=== PATIENT | male | born 1940 | race Caucasian/White ===

== ENCOUNTER → 2016-07-05 | Outpatient (CLI) | payer MEDICARE ==
[~2016-07-05] MED LIST: /ADVA50050 INH; /PANT40TA; /TIOT18INH INH; ACET-654 PO; ACET50TAOT PO; ADV250INH INH; ADV500INH INH; ALBU83IN; ALBU83IN IN; ALBU83IN INH; ALBUTEROL SULFATE INH; AMLO10TA PO; AMLO10TA2 PO; AMLO2.5T OR; AMLO5TAB2 PO; ASPI1TAB PO; ASPI81TA83 OR; ATEN100T; ATEN100T PO; BABY81CH; BENA10TA2 PO; BENA20TA PO; BENA20TA2 OR; BENA20TA2 PO; DALI1TAB2 PO; DELT1TAB PO; DOXY100T OR; FLUO10CA9 PO; FLUO20CA8 PO; FLUO20CA9 PO; HYDR10T PO; HYDR10TAB PO; HYDR25TA6; HYDR25TA6 OR; IPRA2IN INH; LASI40TA PO; LEVA750T; LEVA750T PO; LORA10TA2 PO; LOTREL; MAALSUS; MAALSUS20 PO; MILKSUS PO; MIRA3350 PO; MUCINEX; O2; OMEP20CA3 PO; PANT40TA2 PO; PRED10TA FT; PRED10TA PO; PREDNISONE TAPER; PRIL20CA OR; PROA1AER IN; PROA1AER INH; PROZ20CA11 PO; SIMV20TA2 OR; SIMV20TA2 PO; SMZ-800T PO; SPIR1CAP INH; TRAZ50TA4 PO; TRAZO50TA PO; VITAMIN D50000 UNT OR; ZITH500T PO; [UNRECOGNIZED DRUG - REMARK]
[2016-07-05 13:04] LABS: MEAN CORPUSCULAR HEMOGLOBIN 28.2 pg (27.0-33.0); MEAN CORPUSCULAR HGB CONC 32.3 g/dl (32.0-36.5); MEAN CORPUSCULAR VOLUME 87.5 fl (80.0-96.0); RED CELL DISTRIBUTION WIDTH 12.7 % (11.5-14.5); WHITE BLOOD COUNT 8.7 K/mm3 (4.0-10.0)
[2016-07-05 13:15] LABS: ALBUMIN 3.8 GM/DL (3.2-5.2); ALBUMIN/GLOBULIN RATIO 1.12 (1.00-1.93); ALKALINE PHOSPHATASE 79 U/L (45-117); ALT/SGPT 22 U/L (12-78); ANION GAP 7 MEQ/L (8-16); AST/SGOT 17 U/L (15-37); BILIRUBIN,TOTAL 0.2 MG/DL (0.2-1.0); BLOOD UREA NITROGEN 15 MG/DL (7-18); CALCIUM LEVEL 8.7 MG/DL (8.8-10.2); CARBON DIOXIDE LEVEL 30 MEQ/L (21-32); CHLORIDE LEVEL 103 MEQ/L (98-107); CHOLESTEROL LEVEL 135 MG/DL (<200); CREATININE FOR GFR 1.19 MG/DL (0.70-1.30); GLOMERULAR FILTRATION RATE > 60.0 (>42); GLUCOSE, FASTING 92 MG/DL (83-110); POTASSIUM SERUM 5.1 MEQ/L (3.5-5.1); SODIUM LEVEL 140 MEQ/L (136-145); TOTAL PROTEIN 7.2 GM/DL (6.4-8.2); TRIGLYCERIDES LEVEL 125 MG/DL (<150)
[2016-07-05 13:28] LABS: EOSINOPHILS 3 % (0-5)
== END ==
LOC: M WUC 09:37
PROVIDERS: ATTEND Family Medicine
DX: J44.1 Chronic obstructive pulmonary disease with (acute) exacerbation (principal); R73.01 Impaired fasting glucose; K80.20 Calculus of gallbladder without cholecystitis without obstruction; E78.2 Mixed hyperlipidemia; F43.23 Adjustment disorder with mixed anxiety and depressed mood

== ENCOUNTER → 2016-08-31 | Outpatient (CLI) | payer MEDICARE | LOC: M WUC 13:20 | PROVIDERS: ATTEND Urology | DX: Z12.5 Encounter for screening for malignant neoplasm of prostate (principal) ==

== ENCOUNTER → 2017-06-29 | Outpatient (REF) | payer MEDICARE ==
[2017-06-29 16:47] LABS: ALBUMIN 3.9 GM/DL (3.2-5.2); ALBUMIN/GLOBULIN RATIO 1.11 (1.00-1.93); ALKALINE PHOSPHATASE 116 U/L (45-117); ALT/SGPT 26 U/L (12-78); ANION GAP 8 MEQ/L (8-16); AST/SGOT 17 U/L (7-37); BILIRUBIN,TOTAL 0.3 MG/DL (0.2-1.0); BLOOD UREA NITROGEN 15 MG/DL (7-18); CARBON DIOXIDE LEVEL 31 MEQ/L (21-32); CHLORIDE LEVEL 102 MEQ/L (98-107); CHOLESTEROL LEVEL 172 MG/DL (<200); GLOMERULAR FILTRATION RATE > 60.0 (>42); GLUCOSE, FASTING 97 MG/DL (70-100); HDL CHOLESTEROL 43 MG/DL (>40); NON-HDL-C 129 MG/DL; POTASSIUM SERUM 4.4 MEQ/L (3.5-5.1); SODIUM LEVEL 141 MEQ/L (136-145); TOTAL PROTEIN 7.4 GM/DL (6.4-8.2); TRIGLYCERIDES LEVEL 135 MG/DL (<150)
[2017-06-29 18:39] LABS: BASO # 0.1 10^3/uL (0.0-0.2); BASO % 0.7 % (0.0-1.0); EOS # 0.3 10^3/uL (0.0-0.50); EOS % 3.4 % (0.0-3.0); HEMOGLOBIN 14.1 g/dl (14.0-18.0); IMMATURE GRANULOCYTE % 0.6 % (0-3.0); LYMPH # 1.7 10^3/uL (1.5-4.5); LYMPH % 19.2 % (24.0-44.0); MEAN CORPUSCULAR HEMOGLOBIN 27.2 pg (27.0-33.0); MEAN CORPUSCULAR HGB CONC 31.3 g/dl (32.0-36.5); MEAN CORPUSCULAR VOLUME 86.9 fl (80.0-96.0); MONO # 0.9 10^3/uL (0.0-0.8); MONO % 10.4 % (0.0-5.0); NEUTROPHILS # 5.9 10^3/uL (1.8-7.7); NEUTROPHILS % 65.7 % (36.0-66.0); PLATELET COUNT, AUTOMATED 375 10^3/uL (150-450); RED BLOOD COUNT 5.18 10^6/uL (4.30-6.10); RED CELL DISTRIBUTION WIDTH 13.9 % (11.5-14.5)
== END ==
LOC: M LABDRWCV 16:15
DX: I10 Essential (primary) hypertension (principal)
CPT/HCPCS: 80053

== ENCOUNTER → 2017-12-27 | Outpatient (CLI) | payer MEDICARE ==
[2017-12-27 18:26] LABS: BASO # 0.1 10^3/uL (0.0-0.2); BASO % 0.6 % (0.0-1.0); EOS # 0.3 10^3/uL (0.0-0.50); EOS % 3.4 % (0.0-3.0); HEMOGLOBIN 13.7 g/dl (13.5-17.5); IMMATURE GRANULOCYTE % 0.6 % (0-3.0); LYMPH # 1.6 10^3/uL (1.5-4.5); LYMPH % 16.5 % (24.0-44.0); MEAN CORPUSCULAR HEMOGLOBIN 27.4 pg (27.0-33.0); MEAN CORPUSCULAR HGB CONC 31.9 g/dl (32.0-36.5); MONO % 9.9 % (0.0-5.0); NEUTROPHILS # 6.7 10^3/uL (1.8-7.7); PLATELET COUNT, AUTOMATED 402 10^3/uL (150-450); RED CELL DISTRIBUTION WIDTH 13.8 % (11.5-14.5); WHITE BLOOD COUNT 9.6 10^3/uL (4.0-10.0)
[2017-12-27 19:21] LABS: ALBUMIN 3.8 GM/DL (3.2-5.2); ALKALINE PHOSPHATASE 99 U/L (45-117); ALT/SGPT 30 U/L (12-78); ANION GAP 7 MEQ/L (8-16); AST/SGOT 21 U/L (7-37); BILIRUBIN,TOTAL 0.3 MG/DL (0.2-1.0); BLOOD UREA NITROGEN 14 MG/DL (7-18); CARBON DIOXIDE LEVEL 31 MEQ/L (21-32); CHLORIDE LEVEL 102 MEQ/L (98-107); GLOMERULAR FILTRATION RATE > 60.0 (>42); GLUCOSE, FASTING 73 MG/DL (70-100); MAGNESIUM LEVEL 2.2 MG/DL (1.8-2.4); POTASSIUM SERUM 4.5 MEQ/L (3.5-5.1); SODIUM LEVEL 140 MEQ/L (136-145); TOTAL PROTEIN 7.6 GM/DL (6.4-8.2)
== END ==
LOC: M WUC 15:24
DX: I10 Essential (primary) hypertension (principal)
CPT/HCPCS: 83735

== ENCOUNTER → 2018-04-12 | Outpatient (CLI) | payer MEDICARE ==
[2018-04-12 16:49] LABS: ANION GAP 5 MEQ/L (8-16); BLOOD UREA NITROGEN 15 MG/DL (7-18); CARBON DIOXIDE LEVEL 30 MEQ/L (21-32); CHLORIDE LEVEL 104 MEQ/L (98-107); CREATININE FOR GFR 1.09 MG/DL (0.70-1.30); GLOMERULAR FILTRATION RATE > 60.0 (>42); GLUCOSE, FASTING 90 MG/DL (70-100); POTASSIUM SERUM 4.7 MEQ/L (3.5-5.1); SODIUM LEVEL 139 MEQ/L (136-145)
== END ==
LOC: M WUC 13:21
DX: I10 Essential (primary) hypertension (principal)
CPT/HCPCS: 80048

== ENCOUNTER → 2018-10-06 | Outpatient (CLI) | payer MEDICARE ==
[~2018-10-06] MED LIST changes: -/ADVA50050 INH; -/PANT40TA; -/TIOT18INH INH; -ACET-654 PO; +ACET1TAB55 PO; +ACET500T15 PO; -ACET50TAOT PO; +ADVA1AER2 INH; -AMLO10TA2 PO; +AMLO10TA5 PO; -AMLO5TAB2 PO; +AMLO5TAB6 PO; -ASPI1TAB PO; +ASPI81TA26 PO; -BENA10TA2 PO; +BENA10TA6 PO; -BENA20TA2 PO; +BENA20TA8 PO; +FLUO20CA19 PO; -FLUO20CA9 PO; +HYDR-643 PO; -HYDR10T PO; -LASI40TA PO; +LASI40TA9 PO; -LEVA750T PO; +LEVA750T7 PO; +LORA-243 PO; -LORA10TA2 PO; +MILK120011 PO; -MILKSUS PO; -PANT40TA2 PO; +PANT40TA3 PO; -PRED10TA FT; -PRED10TA PO; +PRED10TA2 FT; +PRED10TA2 PO; -PROA1AER IN; -PROA1AER INH; +PROAAER10 IN; +PROAAER10 INH; +PROT1TAB2; -SMZ-800T PO; +SULF1TAB93 PO; +TRAZ-252 PO; +TRAZ1TAB10 PO; -TRAZ50TA4 PO; -TRAZO50TA PO
[2018-10-06 12:51] LABS: BASO % 0.4 % (0.0-1.0); EOS # 0.1 10^3/uL (0.0-0.50); EOS % 1.1 % (0.0-3.0); HEMATOCRIT 43.7 % (42.0-52.0); LYMPH % 13.2 % (24.0-44.0); MEAN CORPUSCULAR HEMOGLOBIN 28.4 pg (27.0-33.0); MEAN CORPUSCULAR VOLUME 88.6 fl (80.0-96.0); MONO # 0.6 10^3/uL (0.0-0.8); MONO % 8.6 % (0.0-5.0); NEUTROPHILS # 5.7 10^3/uL (1.8-7.7); NEUTROPHILS % 76.2 % (36.0-66.0); PLATELET COUNT, AUTOMATED 315 10^3/uL (150-450); RED BLOOD COUNT 4.93 10^6/uL (4.30-6.10); WHITE BLOOD COUNT 7.5 10^3/uL (4.0-10.0)
[2018-10-06 13:06] LABS: ALBUMIN 3.6 GM/DL (3.2-5.2); ALT/SGPT 27 U/L (12-78); BILIRUBIN,TOTAL 0.4 MG/DL (0.2-1.0); BLOOD UREA NITROGEN 13 MG/DL (7-18); CALCIUM LEVEL 8.8 MG/DL (8.8-10.2); CARBON DIOXIDE LEVEL 30 MEQ/L (21-32); CHLORIDE LEVEL 103 MEQ/L (98-107); CHOLESTEROL LEVEL 157 MG/DL (<200); CHOLESTEROL RISK RATIO 3.568 (<5); GLOMERULAR FILTRATION RATE > 60.0 (>42); GLUCOSE, FASTING 105 MG/DL (70-100); HDL CHOLESTEROL 44 MG/DL (>40); LDL CHOLESTEROL 98 MG/DL (<100); NON-HDL-C 113 MG/DL; SODIUM LEVEL 138 MEQ/L (136-145); TOTAL PROTEIN 7.3 GM/DL (6.4-8.2); TRIGLYCERIDES LEVEL 75 MG/DL (<150)
== END ==
LOC: M WUC 09:57
PROVIDERS: ATTEND Family Medicine
DX: I11.9 Hypertensive heart disease without heart failure (principal); R73.01 Impaired fasting glucose

== ENCOUNTER → 2018-10-18 | Outpatient (CLI) | payer MEDICARE | LOC: M WUC 14:08 | PROVIDERS: ATTEND Family Medicine | DX: R97.20 Elevated prostate specific antigen [PSA] (principal); Z12.5 Encounter for screening for malignant neoplasm of prostate | CPT/HCPCS: 36415; G0103 ==

== ENCOUNTER → 2018-10-25 | Outpatient (CLI) | payer MEDICARE ==
--- NOTE | 2018-10-25 17:45 | REP ---
REASON: Tobacco abuse. COMPARISON: 02/22/2016 and 09/17/2006. As per the low dose screening protocol only lung window images were sent to the read station for interpretation. There is a large asymmetric mass like density with spiculation in the posterior segment of the right upper lobe measuring approximately 5.6 x 3.4 cm. This abuts the right hilum. There is right paratracheal adenopathy. There is cylindrical bronchiectasis and lung field hyperexpansion. There are no gross pleural or pericardial effusions. IMPRESSION: Right upper lobe lung mass as described above. Consistent with neoplasm until proven otherwise. LUNG RADS Category 4X. PET CT and tissue sampling is recommended as per the revised Fleischner's Society Criteria. Electronically Signed by Luis Angel Cardoso DO 10/26/2018 12:26 P
== END ==
LOC: M RAD 13:57
PROVIDERS: ATTEND Family Medicine
DX: R91.8 Other nonspecific abnormal finding of lung field (principal); Z87.891 Personal history of nicotine dependence; R59.0 Localized enlarged lymph nodes; J47.9 Bronchiectasis, uncomplicated

== ENCOUNTER → 2018-10-31 | Outpatient (CLI) | payer MEDICARE | LOC: M SMT 13:10 | PROVIDERS: ATTEND Nurse Practitioner Women's Health | DX: R97.20 Elevated prostate specific antigen [PSA] (principal) ==

== ENCOUNTER → 2018-12-01 | Outpatient (CLI) | payer MEDICARE ==
[~2018-12-01] MED LIST changes: -BENA10TA6 PO; +BENA10TA9 PO; -OMEP20CA3 PO; +OMEP20CA4 PO
--- NOTE | 2018-12-01 12:54 | REP ---
CT of the chest without IV contrast: Comparisons are 10/25/2018, and 2015 and 09/17/2006. There is a right hilar mass posteriorly in the hilus extending into the right upper lobe anteriorly and superior segment right lower lobe. This is similar appearance to 10/25/2018. There are no infiltrates. There are no pleural effusions. There is a stable 6 mm nodule posteriorly in the right upper lobe on image 22, unchanged from 02/22/2016, likely a granuloma. There is a calcified granuloma in the lingula. This is unchanged. There are calcified granulomas in the left hilus and mediastinum. These are unchanged. There is no mediastinal or axillary adenopathy. The study is insensitive for hilar adenopathy in the absence of IV contrast. Thoracic aorta is unremarkable except for calcified atheroma. Cardiac size is normal. There is coronary artery calcified atheroma. There is a large volume fat in the posterior mediastinum surrounding the descending thoracic aorta. This is unchanged. Upper abdomen: There is no adrenal mass. There are gallbladder calculi. This is unchanged. There are granulomas in the spleen. This is unchanged. Impression: Right hilar mass as described. No mediastinal adenopathy. Calcified granulomas in the left lung, left hilus, mediastinum, and spleen unchanged. No adrenal mass. Electronically Signed by Vipin Stevens MD 12/01/2018 12:45 P
== END ==
LOC: M RAD 11:06
PROVIDERS: ATTEND Internal Medicine Pulmonary Disease
DX: R91.8 Other nonspecific abnormal finding of lung field (principal); K80.20 Calculus of gallbladder without cholecystitis without obstruction; R06.00 Dyspnea, unspecified

== ENCOUNTER → 2018-12-01 | Outpatient (CLI) | payer MEDICARE ==
[~2018-12-01] MED LIST changes: +PROHANCE 279.3MG/ML 5ML VIAL (A9576) As Ordered ONE
--- NOTE | 2018-12-01 15:10 | REP ---
MULTIPARAMETRIC PROSTATE MRI WITH AND WITHOUT IV GADOLINIUM: HISTORY: Elevated PSA. TECHNIQUE: Using a phased array surface coil, small field of view imaging was acquired using T2-weighted scans in the axial, coronal, and sagittal imaging planes. Small field of view diffusion-weighted sequences are acquired. Small field of view axial T1-weighted scans are acquired dynamically after the intravenous administration of 10 mL of ProHance. Using a large field of view, the entire pelvis to the level of the aortic bifurcation was imaged using pre-contrast axial T1 and post-contrast axial T1 fat-saturation images. Osseous structures of the pelvis demonstrate no bone lesion. There is no adenopathy. There is a small right inguinal hernia containing fat. Incidental note is made of sigmoid diverticulosis. Seminal vesicles appear symmetrical. Prostate measures 7.1 x 5.9 x 6.2 cm for a total volume of 139.87 mL. This is slightly larger than the prior study of 07/23/2014 when the total volume was 120.44 mL. Diffuse heterogeneous mixed low and high signal is seen in the prostate with nodular areas in the central gland. There appears to be a more prominent hypointense nodularity on T2-weighted images in the left lobe of the prostate. Three areas of interest are identified for MR ultrasound fusion biopsy. First in the right basilar transitional zone and medial peripheral zone and extending into the right mid and apical transitional zone, there is a geographic area of somewhat ill-defined low signal predominately on T2-weighted images with areas of type 3 enhancement. The area measures 3.9 x 1.5 x 5.6 cm for a total volume of 16.1 mL. The overall level of suspicion is 3/5 with clinically significant cancer equivocal. The second in the left mid transitional zone, there is an area of predominantly T2 signal hypointensity which is somewhat ill-defined. There are areas of internal type 3 enhancement. The area measures 3.2 x 0.9 x 2.4 cm for a total volume of 4.14 mL. Overall level of suspicious 3/5 with clinically significant cancer equivocal. Finally, in the left basilar anterior transitional zone, and left mid and apical transitional zone, there is an area of predominant T2 hypointensity with some borders appearing rounded. There is predominant type 3 enhancement particularly inferiorly in the apex. The area measures 3.1 x 1.6 x 4.2 cm for a total volume of 10.82 mL. Overall level of suspicion is 3/5 with clinically significant cancer equivocal. IMPRESSION: Areas are identified on the prostate gland demonstrating abnormal signal and enhancement, presented for consideration for ultrasound-guided MR fusion biopsy. Electronically Signed by Vipin Matson MD 12/05/2018 05:36 P
== END ==
LOC: M RAD 11:11
PROVIDERS: ATTEND Nurse Practitioner Women's Health
DX: R97.20 Elevated prostate specific antigen [PSA] (principal); K40.90 Unilateral inguinal hernia, without obstruction or gangrene, not specified as recurrent; K57.30 Diverticulosis of large intestine without perforation or abscess without bleeding; R91.8 Other nonspecific abnormal finding of lung field; K80.20 Calculus of gallbladder without cholecystitis without obstruction; R06.00 Dyspnea, unspecified
CPT/HCPCS: 71250; 72197; A9576

== ENCOUNTER → 2019-03-14 | Outpatient (CLI) | payer MEDICARE ==
[~2019-03-14] MED LIST changes: -PROHANCE 279.3MG/ML 5ML VIAL (A9576) As Ordered ONE
[2019-03-14 17:31] LABS: CALCIUM LEVEL 9.3 MG/DL (8.8-10.2); CREATININE FOR GFR 1.24 MG/DL (0.70-1.30); GLOMERULAR FILTRATION RATE 59.9 (>42); POTASSIUM SERUM 4.6 MEQ/L (3.5-5.1)
== END ==
LOC: M WUC 11:12
PROVIDERS: ATTEND Family Medicine
DX: R60.0 Localized edema (principal)

== ENCOUNTER → 2019-03-15 | Outpatient (REF) | payer MEDICARE ==
[2019-03-15 17:22] LABS: APPEARANCE, URINE CLEAR (CLEAR); BACTERIA, URINE AUTO NEGATIVE (NEGATIVE); BILIRUBIN, URINE AUTO NEGATIVE (NEGATIVE); BLOOD, URINE BLOOD NEGATIVE (NEGATIVE); COLOR, URINE YELLOW (YELLOW); GLUCOSE, URINE (UA) AUTO NEGATIVE (NEGATIVE); KETONE, URINE AUTO NEGATIVE (NEGATIVE); LEUKOCYTE ESTERASE, URINE AUTO NEGATIVE (NEGATIVE); MUCUS, URINE SMALL (NEGATIVE); NITRITE, URINE AUTO NEGATIVE (NEGATIVE); PROTEIN, URINE AUTO 1+ mg/dL (NEGATIVE); RBC, URINE AUTO 1 /HPF (0-3); SQUAMOUS EPITHELIAL CELL UR AU 0 /HPF (0-6); UROBILINOGEN, URINE AUTO 0.2 mg/dL (0.0-2.0); WBC, URINE AUTO 0 /HPF (0-3)
== END ==
LOC: M SMT 16:45
PROVIDERS: ATTEND Nurse Practitioner Women's Health
DX: N40.0 Benign prostatic hyperplasia without lower urinary tract symptoms (principal)
CPT/HCPCS: 51798; 81001; 87086; G0463

== ENCOUNTER → 2019-03-26 | Outpatient (CLI) | payer MEDICARE ==
[2019-03-26 13:40] LABS: CALCIUM LEVEL 8.7 MG/DL (8.8-10.2); CREATININE FOR GFR 1.4 MG/DL (0.70-1.30)
== END ==
LOC: M WUC 11:08
PROVIDERS: ATTEND Family Medicine
DX: L03.116 Cellulitis of left lower limb (principal)

== ENCOUNTER 2019-07-22 15:56 | Inpatient (IN) | payer MEDICARE ==
[~2019-07-22] VITALS: Ht 167.6 cm; Wt 100.1 kg
[~2019-07-22 15:56] MED LIST changes: -BENA10TA9 PO; +BENA1TAB24 PO; -FLUO20CA19 PO; +FLUO20CA20 PO; +FLUO20CA22 PO; -FLUO20CA8 PO; +OMEP1CAP73 PO; -OMEP20CA4 PO; -SIMV20TA2 PO; +SIMV20TA22 PO
[2019-07-22] MEDS ORDERED: oxygen (16:09)
[2019-07-22] MEDS ORDERED: PRED5TA PO (16:22)
[2019-07-22] MEDS ORDERED: FINA5TAB2 PO (16:22)
[2019-07-22 16:58] LABS: BASO # 0.1 10^3/uL (0.0-0.2); BASO % 0.3 % (0.0-1.0); EOS # 0.1 10^3/uL (0.0-0.5); EOS % 0.4 % (0.0-3.0); HEMATOCRIT 40.7 % (42.0-52.0); HEMOGLOBIN 13.1 g/dl (13.5-17.5); LYMPH # 0.6 10^3/uL (1.5-5.0); LYMPH % 3.8 % (24.0-44.0); MEAN CORPUSCULAR HEMOGLOBIN 27.5 pg (27.0-33.0); MEAN CORPUSCULAR HGB CONC 32.2 g/dl (32.0-36.5); MEAN CORPUSCULAR VOLUME 85.5 fl (80.0-96.0); MONO # 0.7 10^3/uL (0.0-0.8); MONO % 4.2 % (0.0-5.0); NEUTROPHILS % 90.7 % (36.0-66.0); PLATELET COUNT, AUTOMATED 361 10^3/uL (150-450); RED BLOOD COUNT 4.76 10^6/uL (4.30-6.10); WHITE BLOOD COUNT 15.4 10^3/uL (4.0-10.0)
[2019-07-22] MEDS ORDERED: methylPREDNISolone INJ 40 MG/1 ML VIAL (J2920) IV ONE (17:00)
[2019-07-22] MEDS ORDERED: ALBUTEROL 90 MCG/ACT 8GM HFA INHALER INH ONE (17:00)
[2019-07-22] MEDS ORDERED: methylPREDNISolone INJ 125 MG/2 ML VIAL (J2930) IV ONE (17:00)
[2019-07-22] MEDS ORDERED: COMBIVENT RESPIMAT 100-20MCG INHALER 4GM INH SCH (17:00)
[2019-07-22 17:28] LABS: ALBUMIN 3.5 GM/DL (3.2-5.2); ALT/SGPT 23 U/L (12-78); BILIRUBIN,DIRECT 0.1 MG/DL (0.0-0.2); BILIRUBIN,TOTAL 0.4 MG/DL (0.2-1.0); BLOOD UREA NITROGEN 13 MG/DL (7-18); CALCIUM LEVEL 9.4 MG/DL (8.8-10.2); CARBON DIOXIDE LEVEL 29 MEQ/L (21-32); CHLORIDE LEVEL 100 MEQ/L (98-107); CK-MB VALUE MASS 2.6 NG/ML (<3.6); CPK CREATINE PHOSPHOKINASE 119 U/L (39-308); CREATININE FOR GFR 0.99 MG/DL (0.70-1.30); GLOMERULAR FILTRATION RATE > 60.0 (>42); GLUCOSE, FASTING 98 MG/DL (70-100); MB/CK RELATIVE INDEX 2.18 (< OR =4); NT-PRO BNP 353 PG/ML (<450); POTASSIUM SERUM 4.4 MEQ/L (3.5-5.1); SODIUM LEVEL 135 MEQ/L (136-145); TOTAL PROTEIN 7.2 GM/DL (6.4-8.2); TROPONIN I 0.11 NG/ML (< 0.10)
[2019-07-22] MEDS ORDERED: FURO20TA2 PO (17:46)
[2019-07-22] MEDS ORDERED: ISOVUE-370 76% 100ML VIAL (Q9967) As Ordered ONE (18:28)
[2019-07-22] MEDS ORDERED: traZODone 50 MG TAB PO PRN (19:00)
[2019-07-22] MEDS ORDERED: LEVALBUTEROL 1.25 MG/0.5 ML CONCENTRATE NEB INH PRN (19:00)
--- NOTE | 2019-07-22 19:11 | HPEPDOC ---
General Date of Admission Jul 22, 2019 at 18:45 Date of Service: Jul 22, 2019 Chief Complaint The patient is a 78-year-old male admitted with a reason for visit of Copd Exacerbation. Source: Patient, RN/, Old records History of Present Illness 78 year old male with PMH of COPD, CELIA on CPAP, home O2 dependent, Right hilar mass possible malignant did not want investigated presented to [facility] ED with 2 days history of increasing SOB and wheezing. 2 days ago it was really bad he used his inhalers and nebs regularly and yesterday he felt it was getting better but today again his breathing is bad so came to the ED. He also complained of chest tightness, occasional cough and wheezing. In the ED he was found to have mildly elevated troponins. ED physicians discussed about transfer to [facility] but he refused to go. He wanted to be treated here medically if he is having a heart attack. He was admitted for COPD exacerbation. Home Medications Scheduled Albuterol Sulf (Albuterol Sulfate) 2.5 Mg/3 Ml Nebu, 2.5 MG INH QID for SHORTNESS OF BREATH, (Reported) Aspirin (Aspirin EC) 81 Mg Tab, 81 MG PO DAILY, (Reported) Benazepril Hcl (Benazepril HCl) 20 Mg Tab, 20 MG PO BID for hypertension, (Reported) Finasteride (Finasteride) 5 Mg Tablet, 5 MG PO DAILY, (Reported) Fluoxetine Hcl (Fluoxetine HCl) 20 Mg Cap, 20 MG PO QHS, (Reported) Furosemide (Furosemide) 20 Mg Tablet, 40 MG PO DAILY, (Reported) Pantoprazole Sodium (Pantoprazole Sodium) 40 Mg Tab, 40 MG PO DAILY, (Reported) Prednisone (Prednisone) 5 Mg Tablet, 1 TAB PO DAILY, (Reported) Salmeterol/Fluticasone (Advair 500-50 Diskus) 28 Puff/Inhaler Aerp, 1 PUFF INH BID, (Reported) Simvastatin (Simvastatin) 20 Mg Tab, 20 MG PO QHS, (Reported) Tiotropium Lott (Spiriva) 18 Mcg Cap, 18 MCG INH DAILY, (Reported) Scheduled PRN Albuterol Sulfate (Proair Hfa) 108 Mcg/Act Aer, 1 PUFF IN Q4H PRN for SHORTNESS OF BREATH, (Reported) Hydroxyzine HCl (Hydroxyzine HCl) 10 Mg Tab, 10 MG PO TID PRN for ANXIETY, (Reported) Polyethylene Glycol 3350 (Miralax) 1 Pow Pow, 17 GM PO DAILY PRN for CONSTIPATION, (Reported) Trazodone HCl (Trazodone HCl) 50 Mg Tab, 50 MG PO QHS PRN for SLEEP, (Reported) Allergies Coded Allergies: Sulfa (Sulfonamide Antibiotics) (Verified Adverse Reaction, Unknown, rash, 07/22/19) Past Medical History Medical History HYPERTENSION HYPERLIPIDEMIA COPD With Chronic respiratory failure with hypoxia CELIA on CPAP BPH ELEVATED PSA RIGHT HILAR MASS POSSIBLE LUNG CANER DR DILLON STATES NO GOOD CANDIDATE FOR BIOPSY SO NOT SURE DEFINITELY OBESITY GERD. Osteoarthritis. Anxiety. Depression with Prior suicide attempt. Seasonal allergies. Constipation. Surgical History TRUS BIOPSY 09/01/2012, Left eye surgery for Pterygium MRI FUSION BIOPSY 08/16/14 Family History FATHER: , PROSTATE PROBLEMS, STROKE MOTHER: SIBLINGS: LIVING BROTHER HAD PROSTATE CANCER. Social History * Smoker: former Smoker Alcohol: occationally Drugs: denies A-FIB/CHADSVASC A-FIB History Current/History of A-Fib/PAF?: No Review of Systems Constitutional: Reports: Weakness, Fatigue; Denies: Chills, Fever, Night Sweats Eyes: Denies: Pain, Vision change ENT: Denies: Head Aches, Ear Pain, Dysphagia Skin: Denies: Rash, Lesions, Breakdown Pulmonary: Reports: Dyspnea Cardiovascular: Reports: Edema; Denies: Chest Pain, Palpitations, Orthopnea, Paroxysmal Noc. Dyspnea Gastrointestinal: Denies: Nausea, Vomiting, Abdominal Pain, Diarrhea Genitourinary: Denies: Dysuria, Frequency, Incontinence, Retention Musculoskeletal: Reports: Back Pain; Denies: Neck Pain, Joint Pain, Muscle Pain, Spasms Neurological: Denies: Weakness, Numbness, Change in speech, Confusion Physical Examination General Exam: Positive: Alert, Cooperative, No Acute Distress Eye Exam: Positive: PERRLA, Conjunctiva & lids normal, EOMI; Negative: Sclera icteric ENT Exam: Positive: Atraumatic, Mucous membr. moist/pink, Pharynx Normal Neck Exam: Positive: Supple; Negative: JVD, thyromegaly Chest Exam: Positive: Rhonchi, Wheezing, Diminished Heart Exam: Positive: Tachycardic, Regular Rhythm, Normal S1, Normal S2; Negative: Gallops, Murmurs, Rubs Telemetry: Positive: Sinus, Tachycardia Abdomen Exam: Positive: Normal bowel sounds, Soft; Negative: Tenderness, Hepatospenomegaly Extremity Exam: Positive: Edema (trace); Negative: Clubbing, Cyanosis Skin Exam: Positive: Nl turgor and temperature; Negative: Breakdown, Lesion Neuro Exam: Positive: Normal Speech, Strength at 5/5 X4 ext, Normal Tone, Sensation Intact Vital Signs Vital Signs Date Time Temp Pulse Resp B/P (MAP) Pulse Ox O2 Delivery O2 Flow Rate FiO2 07/22/19 18:00 113 22 132/93 (106) 96 07/22/19 16:27 Nasal Cannula 2.0 07/22/19 15:56 99.6 Laboratory Data Labs 24H Laboratory Tests 2 07/22/19 16:40: Immature Granulocyte % (Auto) 0.6, Neutrophils (%) (Auto) 90.7H, Lymphocytes (%) (Auto) 3.8L, Monocytes (%) (Auto) 4.2, Eosinophils (%) (Auto) 0.4, Basophils (%) (Auto) 0.3, Neutrophils # (Auto) 14.0H, Lymphocytes # (Auto) 0.6L, Monocytes # (Auto) 0.7, Eosinophils # (Auto) 0.1, Basophils # (Auto) 0.1, Nucleated Red Blood Cells % (auto) 0.0, Anion Gap 6L, Glomerular Filtration Rate > 60.0, Calcium Level 9.4, Total Bilirubin 0.4, Direct Bilirubin 0.1, Aspartate Amino Transf (AST/SGOT) 16, Alanine Aminotransferase (ALT/SGPT) 23, Alkaline Phosphatase 70, Total Creatine Kinase 119, Creatine Kinase MB 2.6, Creatine Kinase MB Relative Index 2.18, Troponin I 0.11H, RA-Sbk-U-Type Natriuretic Peptide 353, Total Protein 7.2, Albumin 3.5, Albumin/Globulin Ratio 0.95L CBC/BMP Laboratory Tests 07/22/19 16:40 Microbiology Microbiology 07/22/19 Respiratory Virus Panel (PCR) (JULIAN) - Final, Complete 07/22/19 Blood Culture, Received Pending 07/22/19 Blood Culture, Received Pending Assessment/Plan 78 year old male with PMH of COPD, CELIA on CPAP, home O2 dependent, Right hilar mass possible malignant did not want investigated presented to [facility] ED with 2 days history of increasing SOB and wheezing. 2 days ago it was really bad he use d his inhalers and nebs regularly and yesterday he felt it was getting better but today again his breathing is bad so came to the ED. He also complained of chest tightness, occasional cough and wheezing. In the ED he was found to have mildly elevated troponins. ED physicians discussed about transfer to [facility] but he refused to go. He wanted to be treated here medically if he is having a heart attack. He was admitted for COPD exacerbation. COPD exacerbation will give methyl pred, azithromycin, continue advair and spiriva, xopenex oxygen supplementation Possible pulmonary hypertension with right heart faiure and diastolic heart failure continue lasix. Elevated troponins will repeat in 8 hours EKG sinus tachy echo ordered. continue ASA, statin CELIA continue CPAP Hypertension continue home meds Depression and anxiety continue home meds BPH finasteride Hyperlipidemia statin GERD PPI Plan / VTE VTE Prophylaxis Ordered?: Yes WILVER PATEL MD Jul 22, 2019 19:10
[2019-07-22] MEDS ORDERED: BISACODYL 5 MG TAB PO PRN (19:30)
--- NOTE | 2019-07-22 19:50 | REPVR ---
PROCEDURE INFORMATION: Exam: CT Angiography Chest With Contrast Exam date and time: 07/22/2019 6:44 PM Age: 78 years old Clinical indication: Shortness of breath TECHNIQUE: Imaging protocol: Computed tomographic angiography of the chest with intravenous contrast. 3D rendering: MIP reconstructed images were created by the technologist. Radiation optimization: All CT scans at this facility use at least one of these dose optimization techniques: automated exposure control; mA and/or kV adjustment per patient size (includes targeted exams where dose is matched to clinical indication); or iterative reconstruction. Contrast material: ISOVUE 370; Contrast volume: 75 ml; Contrast route: IV; COMPARISON: CT ANGIO CHEST 02/22/2016 3:[address] Chest without contrast 12/01/2018 11:26:32 AM (The report from this study was not available for review at the time of this interpretation.) FINDINGS: Pulmonary arteries: No pulmonary embolism is identified. Great vessels off aortic arch: The brachiocephalic artery, imaged proximal portion of the left common carotid artery, and left subclavian artery are intact. No significant stenosis or occlusion of these vessels is noted. Aorta: There is no thoracic aortic aneurysm, pseudoaneurysm, penetrating atherosclerotic ulcer, intramural hematoma, or dissection. There are moderate atherosclerotic calcifications. Thyroid: There is a 5 mm low-attenuation nodule in the posterior aspect of the lower pole of the right lobe of the thyroid gland, which is unchanged compared to the prior CTA chest on 02/22/2016 and for which follow-up is not necessary. Lungs: There is a 6.5 cm irregular mass in the posterior segment of the right upper lobe, which has increased in size from 5.7 cm since the prior CT chest on 12/01/2018 and is highly suspicious for malignancy. There is a 6 mm nodule along the minor fissure projecting into the right upper lobe (image 32 of the sagittal series 404), which is unchanged compared to the prior CTA chest on 02/22/2016. There is a 15 mm calcified granuloma in the inferior lingula, which is unchanged compared to the prior CTA chest on 02/22/2016. There are centrilobular emphysematous changes, predominantly in the upper lobes, which is fairly similar in appearance compared to the prior CT chest on 12/01/2018. There is mucous plugging in the right lower lobe and left lower lobe bronchi. There is atelectasis in the dependent portions of both lower lobes. Pleural space: Unremarkable. No pneumothorax. No pleural effusion. Heart: No cardiomegaly or pericardial effusion. The ratio of the diameter of the right ventricle to the diameter of the left ventricle measures less than 1, which is within normal limits and there is no evidence for a right ventricular strain. There are coronary artery calcifications. Incidental note is made of prominent right and left cardiophrenic angle fat pads. Mediastinum: No mediastinal fluid collection or pneumomediastinum is noted. There is increased mediastinal fat in the lower posterior mediastinum, which is similar in appearance compared to the prior CT chest on 12/01/2018. There is a small sliding hiatal hernia. Limited gallbladder: There are multiple calcified gallstones in the gallbladder. The gallbladder was not fully imaged. Spleen: There are multiple calcified granulomas in the spleen. The spleen was not fully imaged. Adrenals: Normal. No adrenal mass is noted. Lymph nodes: There is a 14 mm enlarged right lower paratracheal lymph node, which is stable compared to the prior CT chest on 12/01/2018, but has increased in size from 10 mm since the prior CTA chest on 02/22/2016. There is right hilar lymphadenopathy, which is stable compared to the prior CT chest on 12/01/2018. There are calcified subcentimeter subcarinal and left hilar lymph nodes, which represent calcified granulomas that are similar in appearance compared to the prior CT chest on 12/01/2018. Bones/joints: No fracture or dislocation is noted. There is no suspicious osteolytic or osteoblastic lesion. Soft tissues: Unremarkable. IMPRESSION: 1. No pulmonary embolism. 2. 6.5 cm irregular mass in the posterior segment of the right upper lobe, which has increased in size since the prior CT chest on 12/01/2018 and is highly suspicious for malignancy. Tissue correlation is suggested for a pathologic diagnosis. 3. Right paratracheal and right hilar lymphadenopathy, which is stable compared to the prior CT chest on 12/01/2018. 4. Cholelithiasis. FLEISCHNER SOCIETY 2017 GUIDELINES FOR MANAGEMENT OF INCIDENTAL PULMONARY NODULES: Single solid nodule <6 mm: In a low risk patient, no routine follow-up. In a high risk patient, optional CT at 12 months. Certain patients at high risk with suspicious nodule morphology, upper lobe location, or both may warrant 12-month follow-up. Single solid nodule 6-8 mm: In a low risk patient, CT at 6-12 months, then consider CT at 18-24 months. In a high risk patient, CT at 6-12 months, then CT at 18-24 months. Single solid nodule >8 mm: In a low risk patient, consider CT at 3 months, PET/CT, or tissue sampling. In a high risk patient, consider CT at 3 months, PET/CT, or tissue sampling. Certain patients at high risk with suspicious nodule morphology, upper lobe location, or both may warrant 12-month follow-up. Multiple solid nodules <6 mm: In a low risk patient, no routine follow-up. In a high risk patient, optional CT at 12 months. Use most suspicious nodule as guide to management. Follow-up intervals may vary according to size and risk. Multiple solid nodules 6-8 mm: In a low risk patient, CT at 3-6 months, then consider CT at 18-24 months. Use most suspicious nodule as guide to management. Follow-up intervals may vary according to size and risk. In a high risk patient, CT at 3-6 months, then at CT at 18-24 months. Multiple solid nodules >8 mm: In a low risk patient, CT at 3-6 months, then consider CT at 18-24 months. Use most suspicious nodule as guide to management. Follow-up intervals may vary according to size and risk. In a high risk patient, CT at 3-6 months, then at 18-24 months. Subsolid nodules <6 mm: Single ground glass nodule: No routine follow-up. In certain suspicious nodules <6 mm, consider follow-up at 2 and 4 years. If solid component(s) or growth develops, consider resection. Single part solid nodule: No routine follow-up. Multiple subsolid nodules: CT at 3-6 months. If stable, consider CT at 2 and 4 years. Multiple <6 mm pure ground-glass nodules are usually benign, but consider follow-up in selected patients at high risk at 2 and 4 years. Subsolid nodules >6 mm: Single ground glass nodule: CT at 6-12 months to confirm persistence, then CT every 2 years until 5 years. Single part solid nodule: CT at 3-6 months to confirm persistence. If unchanged and solid component remains <6 mm, annual CT should be performed for 5 years. In practice, part-solid nodules cannot be defined as such until >6 mm, and nodules <6 mm do not usually require follow-up. Persistent part-solid nodules with solid components >6 mm should be considered highly suspicious. Multiple subsolid nodules: CT at 3-6 months. Subsequent management based on the most suspicious nodule(s). High Risk Patients as defined in the 2017 Fleischner Society Guidelines: ?History of heavy smoking ?Exposure to asbestos, radium, or uranium ?Family history of lung cancer ?Emphysema and pulmonary fibrosis (IPF in particular) ?Older age ?Sex (females at greater risk than men) ?Race (Blacks and at higher risk) ?Marginal spiculation / suspicious morphology ?Upper lobe location (also apex) ?Multiple nodules (2-5 nodules highest risk) ?Exceptions, such as technically suboptimal scanning Karen H, Gloria DP, Christiano NIKUNJ, et al. Guidelines for Management of Incidental Pulmonary Nodules Detected on CT images: From the Fleischner Society 2017. Radiology, November 2016;284(1):228-243. http://pubs.rsna.org/doi/pdf/10.1148/radiol.2020752419 COMMENTS: Consistent with the [place] [employer]'s Incidental Findings Committee white paper (J Am Jorgito Radiol 2015): In patients aged 35 years and older with an incidental thyroid nodule equal to or greater than 1.[address], MRI or extrathyroidal US, further evaluation with dedicated thyroid US is recommended for patients with normal life expectancy and without comorbidities. For smaller nodules without suspicious features, no further evaluation or follow up is recommended. Electronically signed by: Del Castle On 07/22/2019 19:50:22 PM
[2019-07-22] MEDS: ADVAIR HFA 230/21MCG INHALER INH SCH (20:00)
[2019-07-22] MEDS: LEVALBUTEROL HFA 45MCG/ACT 15 GM INHALER INH SCH (20:00)
[2019-07-22] MEDS: SENOKOT S TAB PO SCH (20:35)
[2019-07-22] MEDS: SIMVASTATIN 20 MG TAB PO SCH (20:35)
[2019-07-22] MEDS: AZITHROMYCIN 250 MG TAB PO SCH (20:35)
[2019-07-22] MEDS: FLUoxetine 20 MG CAP PO SCH (20:35)
[2019-07-22] MEDS: ENOXAPARIN 40 MG/0.4 ML SYRINGE (J1650) SC SCH (20:36)
[2019-07-22] MEDS: BENAZEPRIL 20 MG TAB PO SCH (20:39)
[2019-07-22 22:32] VITALS: BP 159/98
[2019-07-23] VITALS (7 sets, daily range): BP systolic 151–198; BP diastolic 78–108
[2019-07-23] MEDS: LEVALBUTEROL HFA 45MCG/ACT 15 GM INHALER INH SCH ×5 (00:03→20:01)
[2019-07-23 00:31] LABS: HEMOGLOBIN A1c 6.4 %
[2019-07-23 00:32] LABS: CK-MB VALUE MASS 2.9 NG/ML (<3.6); MB/CK RELATIVE INDEX 2.16 (< OR =4); TROPONIN I 0.1 NG/ML (< 0.10)
[2019-07-23] MEDS: methylPREDNISolone INJ 40 MG/1 ML VIAL (J2920) IV SCH ×4 (00:32→20:07)
[2019-07-23 06:07] LABS: BASO % 0.1 % (0.0-1.0); HEMATOCRIT 39.7 % (42.0-52.0); HEMOGLOBIN 12.9 g/dl (13.5-17.5); LYMPH # 0.6 10^3/uL (1.5-5.0); LYMPH % 6.2 % (24.0-44.0); MEAN CORPUSCULAR HEMOGLOBIN 27.7 pg (27.0-33.0); MEAN CORPUSCULAR HGB CONC 32.5 g/dl (32.0-36.5); MEAN CORPUSCULAR VOLUME 85.4 fl (80.0-96.0); MONO # 0.2 10^3/uL (0.0-0.8); MONO % 1.7 % (0.0-5.0); NEUTROPHILS # 8.6 10^3/uL (1.5-8.5); NEUTROPHILS % 91.5 % (36.0-66.0); PLATELET COUNT, AUTOMATED 355 10^3/uL (150-450); RED BLOOD COUNT 4.65 10^6/uL (4.30-6.10); WHITE BLOOD COUNT 9.4 10^3/uL (4.0-10.0)
[2019-07-23] MEDS: ADVAIR HFA 230/21MCG INHALER INH SCH ×2 (06:11→20:00)
[2019-07-23 06:27] LABS: BLOOD UREA NITROGEN 13 MG/DL (7-18); CALCIUM LEVEL 9.1 MG/DL (8.8-10.2); CARBON DIOXIDE LEVEL 29 MEQ/L (21-32); CHLORIDE LEVEL 100 MEQ/L (98-107); CREATININE FOR GFR 1.04 MG/DL (0.70-1.30); GLOMERULAR FILTRATION RATE > 60.0 (>42); GLUCOSE, FASTING 145 MG/DL (70-100); POTASSIUM SERUM 4.3 MEQ/L (3.5-5.1); SODIUM LEVEL 135 MEQ/L (136-145)
--- NOTE | 2019-07-23 07:44 | ECGEPIP ---
[facility] - ED Test Date: 2019-07-22 Pat Name: DAYANNA BROWN Department: Room: - Gender: Male Section Gang: ct : 1940 Requested By: Bea Ravi Order Number: [id number] Reading MD: Tanya Restrepo Measurements Intervals [place] Rate: 104 P: 50 WI: 167 QRS: 3 QRSD: 88 T: 30 QT: 334 QTc: 441 Interpretive Statements SINUS TACHYCARDIA NONSPECIFIC ST & T-WAVE ABNORMALITY ABNORMAL RHYTHM ECG INCREASED RATE 04/17/16 Electronically Signed on 07-23-2019 7:43:58 EDT by Tanya Restrepo
--- NOTE | 2019-07-23 08:18 | REP ---
Portable chest x-ray: Single view. History: Shortness of breath. Comparison chest x-ray April 17, 2016. Comparison CT study of the chest December 01, 2018. Findings: The right perihilar mass seen on the CT study from December 01, 2018 is again noted. This measures approximately 4.6 cm. There is a granulomatous calcification in the left base. There is evidence of a [id number] size hiatal hernia. Heart is not enlarged. Lung butler are otherwise clear. Pleural angles are sharp. Impression: Large mass right perihilar region consistent with primary lung malignancy. Granulomatous calcification left base. Hiatal hernia. Electronically Signed by Alexis Chavira MD 07/23/2019 08:09 A
[2019-07-23] MEDS: FINASTERIDE 5 MG TAB PO SCH (09:29)
[2019-07-23] MEDS: BENAZEPRIL 20 MG TAB PO SCH ×2 (09:32→20:07)
[2019-07-23] MEDS: ASPIRIN 81 MG ENTERIC TAB PO SCH (09:33)
[2019-07-23] MEDS: SENOKOT S TAB PO SCH ×2 (09:33→20:06)
[2019-07-23] MEDS: PANTOPRAZOLE 40MG TAB (PROTONIX) PO SCH (09:33)
[2019-07-23] MEDS: FUROSEMIDE 20 MG TAB PO SCH (09:33)
--- NOTE | 2019-07-23 10:01 | IPNPDOC ---
Subjective Date Seen The patient was seen on 07/23/19. Subjective Chief Complaint/HPI feeling a little better today. SOB is getting bettr, denies any cough or phlegm. No fever or chills, no chest pain. no nausea or vomiting or abdominal pain Objective Physical Examination General Exam: Positive: Alert, Cooperative, No Acute Distress Eye Exam: Positive: PERRLA, Conjunctiva & lids normal, EOMI; Negative: Sclera icteric ENT Exam: Positive: Atraumatic, Mucous membr. moist/pink, Pharynx Normal Neck Exam: Positive: Supple; Negative: JVD, thyromegaly Chest Exam: Positive: Rhonchi, Wheezing, Diminished Heart Exam: Positive: Tachycardic, Regular Rhythm, Normal S1, Normal S2; Negative: Gallops, Murmurs, Rubs Telemetry: Positive: Sinus, Tachycardia Abdomen Exam: Positive: Normal bowel sounds, Soft; Negative: Tenderness, Hepatospenomegaly Extremity Exam: Positive: Edema (trace); Negative: Clubbing, Cyanosis Skin Exam: Positive: Nl turgor and temperature; Negative: Breakdown, Lesion Neuro Exam: Positive: Normal Speech, Strength at 5/5 X4 ext, Normal Tone, Sensation Intact Assessment /Plan Assessment 78 year old male with PMH of COPD, CELIA on CPAP, home O2 dependent, Right hilar mass possible malignant did not want investigated presented to [facility] ED with 2 days history of increasing SOB and wheezing. 2 days ago it was really bad he used his inhalers and nebs regularly and yesterday he felt it was getting better but today again his breathing is bad so came to the ED. He also complained of chest tightness, occasional cough and wheezing. In the ED he was found to have mildly elevated troponins. ED physicians discussed about transfer to [facility] but he refused to go. He wanted to be treated here medically if he is having a heart attack. He was admitted for COPD exacerbation. CT angio of the chest is negative for PE. It shows: 6.5 cm irregular mass in the posterior segment of the right upper lobe, which has increased in size since the prior CT chest on 12/01/2018 and is highly suspicious for malignancy. Tissue correlation is suggested for a pathologic diagnosis. Right paratracheal and right hilar lymphadenopathy, which is stable compared to the prior CT chest on 12/01/2018. COPD exacerbation will give methyl pred, azithromycin, continue advair and spiriva, xopenex oxygen supplementation Possible pulmonary hypertension with right heart faiure and diastolic heart failure continue lasix. Elevated troponins resolved Dur to tachycardia, SOb EKG sinus tachy echo ordered. continue ASA, statin CELIA continue CPAP Hypertension continue home meds Depression and anxiety continue home meds BPH finasteride Hyperlipidemia statin GERD PPI Plan/VTE VTE Prophylaxis Ordered?: Yes VS, I&O, 24H, Fishbone Vital Signs/I&O Vital Signs Date Time Temp Pulse Resp B/P (MAP) Pulse Ox O2 Delivery O2 Flow Rate FiO2 07/23/19 09:32 198/100 07/23/19 09:30 125 07/23/19 06:00 98.1 18 97 Nasal Cannula 2.0 I&O- Last 24 Hours up to 6 AM 07/23/19 06:00 Intake Total 600 ml Output Total 650 ml Balance -50 ml Laboratory Data 24H LABS Laboratory Tests 2 07/22/19 16:40: Immature Granulocyte % (Auto) 0.6, Neutrophils (%) (Auto) 90.7H, Lymphocytes (%) (Auto) 3.8L, Monocytes (%) (Auto) 4.2, Eosinophils (%) (Auto) 0.4, Basophils (%) (Auto) 0.3, Neutrophils # (Auto) 14.0H, Lymphocytes # (Auto) 0.6L, Monocytes # (Auto) 0.7, Eosinophils # (Auto) 0.1, Basophils # (Auto) 0.1, Nucleated Red Bloo d Cells % (auto) 0.0, Anion Gap 6L, Glomerular Filtration Rate > 60.0, Calcium Level 9.4, Total Bilirubin 0.4, Direct Bilirubin 0.1, Aspartate Amino Transf (AST/SGOT) 16, Alanine Aminotransferase (ALT/SGPT) 23, Alkaline Phosphatase 70, Total Creatine Kinase 119, Creatine Kinase MB 2.6, Creatine Kinase MB Relative Index 2.18, Troponin I 0.11H, [id number]-Type Natriuretic Peptide 353, Total Protein 7.2, Albumin 3.5, Albumin/Globulin Ratio 0.95L 07/23/19 00:01: Total Creatine Kinase 134, Creatine Kinase MB 2.9, Creatine Kinase MB Relative Index 2.16, Troponin I 0.10, Estimated Mean Plasma Glucose 137H, Hemoglobin A1c 6.4 07/23/19 05:35: Immature Granulocyte % (Auto) 0.5, Neutrophils (%) (Auto) 91.5H, Lymphocytes (%) (Auto) 6.2L, Monocytes (%) (Auto) 1.7, Eosinophils (%) (Auto) 0.0, Basophils (%) (Auto) 0.1, Neutrophils # (Auto) 8.6H, Lymphocytes # (Auto) 0.6L, Monocytes # (Auto) 0.2, Eosinophils # (Auto) 0.0, Basophils # (Auto) 0.0, Nucleated Red Bl ood Cells % (auto) 0.0, Anion Gap 6L, Glomerular Filtration Rate > 60.0, Calcium Level 9.1 CBC/BMP Laboratory Tests 07/22/19 16:40 07/23/19 05:35 Microbiology Microbiology 07/22/19 Respiratory Virus Panel (PCR) (JULIAN) - Final, Complete 07/22/19 Blood Culture, Received Pending 07/22/19 Blood Culture, Received Pending WILVER PATEL MD Jul 23, 2019 10:01
[2019-07-23] MEDS: TIOTROPIUM INHALER/CAPSULE (SPIRIVA) INH SCH (11:22)
[2019-07-23] MEDS ORDERED: amLODIPine 5 MG TAB PO ONE (15:00)
[2019-07-23] MEDS ORDERED: SIMETHICONE 80 MG CHEW TAB PO PRN (17:00)
--- NOTE | 2019-07-23 18:38 | ECHO ---
DATE OF PROCEDURE: 07/23/2019 REFERRING PHYSICIAN: Dr. Hurst INDICATION: Dyspnea. Height 168 cm, weight 103 kg. DIMENSIONS: IVS: 1.2 LV: 6.2 LVPW: 1.2 LA: 3.9 Aorta: 3.3 IVC: 1.4 Mitral E wave velocity: 112 E prime septal: 13.1 E prime lateral: 14.7 FINDINGS: The study is of poor technical quality with very limited visualization corresponding to patient's body habitus. The patient is in sinus tachycardia. Left ventricle is mildly dilated. I assume probably normal LV systolic function, but the visualization was very poor and that certainly can be wrong. Mild left ventricular hypertrophy (LVH) is noted. Right ventricle was poorly visualized. Left atrium is probably normal size. Right atrium was poorly seen. None of the four cardiac valves were well visualized but limited views of mitral and tricuspid valves appear grossly normal. Tricuspid valve and pulmonic valves were seen very poorly, and I cannot comment on their structure at all. No pericardial effusion is noted. Inferior vena cava is normal size. Aortic root is normal. Aortic arch and abdominal aorta were not well seen. Doppler interrogation of aortic and mitral valve reveals no significant abnormalities. Mitral inflow pattern and tissue Doppler imaging of mitral annulus revealed summation pattern on mitral inflow, but tissue Doppler velocities of mitral annulus are relatively preserved and consequently I do not expect more than mild diastolic dysfunction. CONCLUSIONS: 1. Study is of poor technical quality with difficult visualization. 2. The patient is in sinus tachycardia. 3. Mildly dilated left ventricle with mild LVH and overall probably normal or near normal LV systolic function. Unable to determine diastolic function. 4. No significant aortic and mitral valvular disease. 5. Right-sided chambers and valves were poorly visualized. 6. Likely normal central venous pressure. 7. Unable to estimate pulmonary artery pressure.
[2019-07-23] MEDS: amLODIPine 5 MG TAB PO SCH (20:06)
[2019-07-23] MEDS: ENOXAPARIN 40 MG/0.4 ML SYRINGE (J1650) SC SCH (20:06)
[2019-07-23] MEDS: AZITHROMYCIN 250 MG TAB PO SCH (20:07)
[2019-07-23] MEDS: FLUoxetine 20 MG CAP PO SCH (20:07)
[2019-07-23] MEDS: SIMVASTATIN 20 MG TAB PO SCH (20:07)
[2019-07-24] MEDS: LEVALBUTEROL HFA 45MCG/ACT 15 GM INHALER INH SCH ×2 (02:00→07:14)
[2019-07-24] MEDS: methylPREDNISolone INJ 40 MG/1 ML VIAL (J2920) IV SCH (04:08)
[2019-07-24 06:00] VITALS: BP 155/89
[2019-07-24 06:17] LABS: BASO % 0.1 % (0.0-1.0); HEMATOCRIT 38.9 % (42.0-52.0); HEMOGLOBIN 12.5 g/dl (13.5-17.5); LYMPH # 0.9 10^3/uL (1.5-5.0); LYMPH % 4.9 % (24.0-44.0); MEAN CORPUSCULAR HEMOGLOBIN 27.5 pg (27.0-33.0); MEAN CORPUSCULAR HGB CONC 32.1 g/dl (32.0-36.5); MEAN CORPUSCULAR VOLUME 85.7 fl (80.0-96.0); MONO # 1.4 10^3/uL (0.0-0.8); MONO % 7.1 % (0.0-5.0); NEUTROPHILS # 16.6 10^3/uL (1.5-8.5); NEUTROPHILS % 87.2 % (36.0-66.0); PLATELET COUNT, AUTOMATED 346 10^3/uL (150-450); RED BLOOD COUNT 4.54 10^6/uL (4.30-6.10)
[2019-07-24 06:38] LABS: BLOOD UREA NITROGEN 19 MG/DL (7-18); CALCIUM LEVEL 8.8 MG/DL (8.8-10.2); CARBON DIOXIDE LEVEL 31 MEQ/L (21-32); CHLORIDE LEVEL 102 MEQ/L (98-107); CREATININE FOR GFR 1.01 MG/DL (0.70-1.30); GLOMERULAR FILTRATION RATE > 60.0 (>42); GLUCOSE, FASTING 126 MG/DL (70-100); POTASSIUM SERUM 3.9 MEQ/L (3.5-5.1); SODIUM LEVEL 135 MEQ/L (136-145)
[2019-07-24] MEDS: ADVAIR HFA 230/21MCG INHALER INH SCH (07:14)
[2019-07-24] MEDS: TIOTROPIUM INHALER/CAPSULE (SPIRIVA) INH SCH (07:14)
[2019-07-24] MEDS: PANTOPRAZOLE 40MG TAB (PROTONIX) PO SCH (09:45)
[2019-07-24] MEDS: FINASTERIDE 5 MG TAB PO SCH (09:45)
[2019-07-24] MEDS: ASPIRIN 81 MG ENTERIC TAB PO SCH (09:45)
[2019-07-24] MEDS: SENOKOT S TAB PO SCH (09:45)
[2019-07-24 09:46] VITALS: BP 137/88
[2019-07-24] MEDS: FUROSEMIDE 20 MG TAB PO SCH (09:46)
[2019-07-24] MEDS: amLODIPine 5 MG TAB PO SCH (09:46)
[2019-07-24] MEDS: BENAZEPRIL 20 MG TAB PO SCH (09:46)
[2019-07-24] MEDS ORDERED: AZIT-12 PO (11:46)
[2019-07-24] MEDS ORDERED: PRED10TA2 PO (11:46)
[2019-07-24] MEDS ORDERED: methylPREDNISolone INJ 40 MG/1 ML VIAL (J2920) IV SCH (16:00)
--- NOTE | 2019-07-25 14:13 | DS.PDOC ---
Discharge Summary General Date of Admission Jul 22, 2019 at 18:45 Date of Discharge 07/24/19 Discharge Summary PROCEDURES PERFORMED DURING STAY: [None]. DISCHARGE DIAGNOSES: COPD exacerbation CELIA Chronic respiratory failure with hypoxia right hilar mass presumed to be malignant. SECONDARY DIAGNOSIS: HYPERTENSION HYPERLIPIDEMIA COPD With Chronic respiratory failure with hypoxia CELIA on CPAP BPH ELEVATED PSA RIGHT HILAR MASS POSSIBLE LUNG CANCER DR DILLON STATES NO GOOD CANDIDATE FOR BIOPSY SO NOT SURE DEFINITELY OBESITY GERD. Osteoarthritis. Anxiety. Depression with Prior suicide attempt. Seasonal allergies. Constipation. COMPLICATIONS/CHIEF COMPLAINT: Copd Exacerbation. HISTORY OF PRESENT ILLNESS: See history and physical HOSPITAL COURSE: 78 year old male with PMH of COPD, CELIA on CPAP, home O2 dependent, Right hilar mass possible malignant did not want investigated presented to the ED with 2 days history of increasing SOB and wheezing. 2 days ago it was really bad he used his inhalers and nebs regularly and yesterday he felt it was getting better but today again his breathing is bad so came to the ED. He also complained of chest tightness, occasional cough and wheezing. In the ED he was found to have mildly elevated troponins. ED physicians discussed about transfer to [facility] but he refused to go. He wanted to be treated here medically if he is having a heart attack. He was admitted for COPD exacerbation. CT angio of the chest is negative for PE. It shows: 6.5 cm irregular mass in the posterior segment of the right upper lobe, which has increased in size since the prior CT chest on 12/01/2018 and is highly suspicious for malignancy. Tissue correlation is suggested for a pathologic diagnosis. Right paratracheal and right hilar lymphadenopathy, which is stable compared to the prior CT chest on 12/01/2018. COPD exacerbation Prednisone, azithromycin, continue advair and spiriva, xopenex oxygen supplementation Pulmonary hypertension with right heart failure and diastolic heart failure continue lasix. Elevated troponins resolved Dur to tachycardia, SOb EKG sinus tachy echo ordered. continue ASA, statin CELIA continue CPAP Hypertension continue home meds Depression and anxiety continue home meds BPH finasteride Hyperlipidemia statin GERD PPI DISCHARGE MEDICATIONS: Please see below. ALLERGIES: Please see below. PHYSICAL EXAMINATION ON DISCHARGE: VITAL SIGNS: Please see below. General Exam: Positive: Alert, Cooperative, No Acute Distress Eye Exam: Positive: PERRLA, Conjunctiva & lids normal, EOMI; Negative: Sclera icteric ENT Exam: Positive: Atraumatic, Mucous membr. moist/pink, Pharynx Normal Neck Exam: Positive: Supple; Negative: JVD, thyromegaly Chest Exam: Positive: Rhonchi, Wheezing, Diminished Heart Exam: Positive: Tachycardic, Regular Rhythm, Normal S1, Normal S2; Negative: Gallops, Murmurs, Rubs Telemetry: Positive: Sinus, Tachycardia Abdomen Exam: Positive: Normal bowel sounds, Soft; Negative: Tenderness, Hepatospenomegaly Extremity Exam: Positive: Edema (trace); Negative: Clubbing, Cyanosis Skin Exam: Positive: Nl turgor and temperature; Negative: Breakdown, Lesion Neuro Exam: Positive: Normal Speech, Strength at 5/5 X4 ext, Normal Tone, Sensation Intact LABORATORY DATA: Please see below. ACTIVITY: [As tolerated]. DIET: Regular DISPOSITION: 01 Home, Self-Care. DISCHARGE INSTRUCTIONS: PMD in 2 weeks DISCHARGE CONDITION: [Stable]. TIME SPENT ON DISCHARGE: 35 minutes. Vital Signs/I&Os Vital Signs Date Time Temp Pulse Resp B/P (MAP) Pulse Ox O2 Delivery O2 Flow Rate FiO2 07/24/19 09:46 104 137/88 07/24/19 09:00 2.0 07/24/19 06:00 98.2 14 97 Nasal Cannula I&O- Last 24 Hours up to 6 AM 07/25/19 06:00 Intake Total 300 ml Output Total 0 ml Balance 300 ml Microbiology Microbiology 07/22/19 Respiratory Virus Panel (PCR) (JULIAN) - Final, Complete 07/22/19 Blood Culture - Preliminary, Resulted No Growth after 48 hours. All Specime... 07/22/19 Blood Culture - Preliminary, Resulted No Growth after 48 hours. All Specime... Discharge Medications Scheduled Albuterol Sulf (Albuterol Sulfate) 2.5 Mg/3 Ml Nebu, 2.5 MG INH QID for SHORTNESS OF BREATH, (Reported) Aspirin (Aspirin EC) 81 Mg Tab, 81 MG PO DAILY, (Reported) Azithromycin (Azithromycin) 250 Mg Tablet, 500 MG PO QPM Benazepril Hcl (Benazepril HCl) 20 Mg Tab, 20 MG PO BID for hypertension, (Reported) Finasteride (Finasteride) 5 Mg Tablet, 5 MG PO DAILY, (Reported) Fluoxetine Hcl (Fluoxetine HCl) 20 Mg Cap, 20 MG PO QHS, (Reported) Furosemide (Furosemide) 20 Mg Tablet, 40 MG PO DAILY, (Reported) Pantoprazole Sodium (Pantoprazole Sodium) 40 Mg Tab, 40 MG PO DAILY, (Reported) Prednisone (Prednisone) 5 Mg Tablet, 1 TAB PO DAILY, (Reported) Prednisone (Prednisone) 10 Mg Tablet, 10 MG PO TAPER Take 4 tabs daily x 3 days, then 3 tabs daily x 3 days, then 2 tabs daily x 3 days, then 1 tab daily x 3 days and stop Salmeterol/Fluticasone (Advair 500-50 Diskus) 28 Puff/Inhaler Aerp, 1 PUFF INH BID, (Reported) Simvastatin (Simvastatin) 20 Mg Tab, 20 MG PO QHS, (Reported) Tiotropium [place] (Spiriva) 18 Mcg Cap, 18 MCG INH DAILY, (Reported) Scheduled PRN Albuterol Sulfate (Proair Hfa) 108 Mcg/Act Aer, 1 PUFF IN Q4H PRN for SHORTNESS OF BREATH, (Reported) Hydroxyzine HCl (Hydroxyzine HCl) 10 Mg Tab, 10 MG PO TID PRN for ANXIETY, (Reported) Polyethylene Glycol 3350 (Miralax) 1 Pow Pow, 17 GM PO DAILY PRN for CONSTIPATION, (Reported) Trazodone HCl (Trazodone HCl) 50 Mg Tab, 50 MG PO QHS PRN for SLEEP, (Reported) Allergies Coded Allergies: Sulfa (Sulfonamide Antibiotics) (Verified Adverse Reaction, Unknown, rash, 07/22/19) WILVER PATEL MD Jul 25, 2019 14:12
== END 2019-07-24 13:15 | disposition home or self-care (01) | DRG 191 ==
LOC: M ED 15:56 → M ED INP 18:45 → ENRESERVTM 21:34 → ENRESERVDT 21:34 → M MSPAV 22:32
PROVIDERS: ADMIT Internal Medicine Nephrology; ATTEND Internal Medicine Nephrology
DX: J44.1 Chronic obstructive pulmonary disease with (acute) exacerbation (principal); J96.11 Chronic respiratory failure with hypoxia; I50.32 Chronic diastolic (congestive) heart failure; G47.33 Obstructive sleep apnea (adult) (pediatric); I11.0 Hypertensive heart disease with heart failure; E78.5 Hyperlipidemia, unspecified; N40.0 Benign prostatic hyperplasia without lower urinary tract symptoms; E66.9 Obesity, unspecified; K21.9 Gastro-esophageal reflux disease without esophagitis; M19.90 Unspecified osteoarthritis, unspecified site; F32.9 Major depressive disorder, single episode, unspecified; K59.00 Constipation, unspecified; R91.8 Other nonspecific abnormal finding of lung field; R97.20 Elevated prostate specific antigen [PSA]; Z99.81 Dependence on supplemental oxygen; Z79.52 Long term (current) use of systemic steroids; I27.20 Pulmonary hypertension, unspecified; Z79.899 Other long term (current) drug therapy; Z79.82 Long term (current) use of aspirin; Z88.2 Allergy status to sulfonamides

== ENCOUNTER → 2019-09-17 | Outpatient (CLI) | payer MEDICARE ==
[~2019-09-17] MED LIST changes: +AZIT-12 PO; +FINA5TAB2 PO; +FURO20TA2 PO; +PRED5TA PO; +oxygen
[2019-09-17 17:26] LABS: ALBUMIN 3.3 GM/DL (3.2-5.2); ALT/SGPT 21 U/L (12-78); BILIRUBIN,TOTAL 0.4 MG/DL (0.2-1.0); BLOOD UREA NITROGEN 10 MG/DL (7-18); CALCIUM LEVEL 8.5 MG/DL (8.8-10.2); CARBON DIOXIDE LEVEL 29 MEQ/L (21-32); CHLORIDE LEVEL 103 MEQ/L (98-107); CREATININE FOR GFR 1.03 MG/DL (0.70-1.30); GLOMERULAR FILTRATION RATE > 60.0 (>42); GLUCOSE, FASTING 76 MG/DL (70-100); POTASSIUM SERUM 4.1 MEQ/L (3.5-5.1); SODIUM LEVEL 139 MEQ/L (136-145); TOTAL PROTEIN 7.2 GM/DL (6.4-8.2)
[2019-09-17 17:39] LABS: HEMOGLOBIN A1c 6.7 %
== END ==
LOC: M PLALAB 14:40
PROVIDERS: ATTEND Family Medicine
DX: I10 Essential (primary) hypertension (principal); R73.03 Prediabetes

== ENCOUNTER 2019-10-08 14:33 | Emergency (ER) | payer MEDICARE ==
[~2019-10-08] VITALS: Ht 167.6 cm; Wt 95.9 kg
[~2019-10-08 14:33] MED LIST changes: -AMLO10TA5 PO; +AMLO1TAB24 PO; +AMLO1TAB25 PO; -AMLO5TAB6 PO; +PANT40TA29 PO; -PANT40TA3 PO
[2019-10-08] MEDS ORDERED: AMLO2.5T3 PO (14:58)
[2019-10-08 15:52] LABS: VENOUS BASE EXCESS 4.8 (-2.0-2.0); VENOUS HCO3 31.8 MEQ/L (23.0-27.0); VENOUS O2 SATURATION 79.8 % (60.0-80.0); VENOUS PARTIAL PRESSURE CO2 57.4 mmHg (38.0-50.0); VENOUS PARTIAL PRESSURE O2 44.3 mmHg (30.0-50.0); VENOUS PH 7.361 UNITS (7.330-7.430); VENOUS STANDARD HCO3 28.4 MEQ/L; VENOUS TOTAL CO2 33.5 MEQ/L (24.0-28.0)
[2019-10-08 15:54] LABS: BASO # 0.1 10^3/uL (0.0-0.2); BASO % 0.5 % (0.0-1.0); EOS # 0.4 10^3/uL (0.0-0.5); EOS % 3.2 % (0.0-3.0); HEMATOCRIT 39.3 % (42.0-52.0); HEMOGLOBIN 12.6 g/dl (13.5-17.5); LYMPH % 8.5 % (24.0-44.0); MEAN CORPUSCULAR HEMOGLOBIN 27.8 pg (27.0-33.0); MEAN CORPUSCULAR HGB CONC 32.1 g/dl (32.0-36.5); MEAN CORPUSCULAR VOLUME 86.6 fl (80.0-96.0); MONO # 1.3 10^3/uL (0.0-0.8); MONO % 11.1 % (0.0-5.0); NEUTROPHILS # 9.1 10^3/uL (1.5-8.5); NEUTROPHILS % 76.1 % (36.0-66.0); PLATELET COUNT, AUTOMATED 388 10^3/uL (150-450); RED BLOOD COUNT 4.54 10^6/uL (4.30-6.10); WHITE BLOOD COUNT 11.9 10^3/uL (4.0-10.0)
[2019-10-08 16:32] LABS: ALBUMIN 3.1 GM/DL (3.2-5.2); ALT/SGPT 24 U/L (12-78); BILIRUBIN,DIRECT < 0.1 MG/DL (0.0-0.2); BILIRUBIN,TOTAL 0.2 MG/DL (0.2-1.0); BLOOD UREA NITROGEN 11 MG/DL (7-18); CALCIUM LEVEL 8.6 MG/DL (8.8-10.2); CARBON DIOXIDE LEVEL 31 MEQ/L (21-32); CHLORIDE LEVEL 98 MEQ/L (98-107); CREATININE FOR GFR 0.85 MG/DL (0.70-1.30); GLOMERULAR FILTRATION RATE > 60.0 (>42); GLUCOSE, FASTING 80 MG/DL (70-100); NT-PRO BNP 340 PG/ML (<450); POTASSIUM SERUM 4.5 MEQ/L (3.5-5.1); SODIUM LEVEL 134 MEQ/L (136-145); TOTAL PROTEIN 6.9 GM/DL (6.4-8.2)
[2019-10-08] MEDS ORDERED: DOXY100C37 PO (16:47)
--- NOTE | 2019-10-08 16:48 | REP ---
Bilateral lower extremity Duplex Doppler venous ultrasound: Real time compression and duplex Doppler interrogation of the bilateral lower extremity deep venous system is performed. Bilaterally, the common femoral, superficial femoral and popliteal veins are fully compressible with transducer pressure and demonstrate normal spontaneous and phasic flow, without evidence of deep venous thrombosis. Impression: No evidence of deep venous thrombosis of the bilateral lower extremity femoral popliteal venous system. Electronically Signed by Vipin Matson MD 10/08/2019 04:39 P
[2019-10-08 18:20] VITALS: BP 170/84
--- NOTE | 2019-10-08 20:50 | ECGEPIP ---
[facility] - ED Test Date: 2019-10-08 Pat Name: DAYANNA BROWN Department: Room: - Gender: Male Director Oncology: bell : 1940 Requested By: Tanya Restrepo Order Number: [id number] Reading MD: Ben George Measurements Intervals Ballinger Rate: 95 P: 44 AL: 157 QRS: 14 QRSD: 94 T: 48 QT: 348 QTc: 439 Interpretive Statements SINUS RHYTHM NONSPECIFIC T-WAVE ABNORMALITY Similar to tracing done 04-17-16 Electronically Signed on 10-08-2019 20:49:47 EDT by Ben George
--- NOTE | 2019-10-08 22:55 | REP ---
CHEST, SINGLE VIEW: Single view of the chest is performed and compared to prior study of 07/22/2019. There is increased size of a right hilar mass with adjacent infiltrate. Calcified granulomas again seen in the left lung base. No acute abnormalities are seen in the left lung. There is cardiomegaly. There is a large hiatal hernia. There is calcification and tortuosity of the thoracic aorta. Electronically Signed by Vipin Matson MD 10/09/2019 01:40 P
[2019-10-24] MEDS ORDERED: AMLO1TAB25 PO (10:17)
== END 2019-10-08 18:23 | disposition home or self-care (01) ==
LOC: M ED 14:33
DX: R60.0 Localized edema (principal); J18.9 Pneumonia, unspecified organism; R91.8 Other nonspecific abnormal finding of lung field; I10 Essential (primary) hypertension; R06.02 Shortness of breath; J44.9 Chronic obstructive pulmonary disease, unspecified; E78.5 Hyperlipidemia, unspecified; Z99.81 Dependence on supplemental oxygen; N40.0 Benign prostatic hyperplasia without lower urinary tract symptoms; F41.9 Anxiety disorder, unspecified; F32.9 Major depressive disorder, single episode, unspecified; G47.33 Obstructive sleep apnea (adult) (pediatric); Z87.891 Personal history of nicotine dependence; Z79.899 Other long term (current) drug therapy; Z79.51 Long term (current) use of inhaled steroids; Z79.82 Long term (current) use of aspirin; Z79.52 Long term (current) use of systemic steroids

== ENCOUNTER 2019-10-17 10:44 | Inpatient (IN) | payer MEDICARE ==
[~2019-10-17] VITALS: Ht 167.6 cm; Wt 97.0 kg
[~2019-10-17 10:44] MED LIST changes: +AMLO10TA5 PO; -AMLO1TAB24 PO; -AMLO1TAB25 PO; +AMLO2.5T3 PO; +AMLO5TAB6 PO; +DOXY100C37 PO; -PANT40TA29 PO; +PANT40TA3 PO
[2019-10-17 11:12] LABS: BASO # 0.1 10^3/uL (0.0-0.2); BASO % 0.5 % (0.0-1.0); EOS # 0.4 10^3/uL (0.0-0.5); EOS % 3.8 % (0.0-3.0); HEMOGLOBIN 13.1 g/dl (13.5-17.5); LYMPH # 1.2 10^3/uL (1.5-5.0); LYMPH % 10.8 % (24.0-44.0); MEAN CORPUSCULAR VOLUME 84.5 fl (80.0-96.0); MONO # 1.2 10^3/uL (0.0-0.8); MONO % 10.6 % (0.0-5.0); NEUTROPHILS % 73.5 % (36.0-66.0); PLATELET COUNT, AUTOMATED 395 10^3/uL (150-450); RED BLOOD COUNT 4.85 10^6/uL (4.30-6.10); WHITE BLOOD COUNT 10.9 10^3/uL (4.0-10.0)
[2019-10-17 11:29] LABS: INR 1.13; PROTHROMBIN TIME 14.2 SECONDS (11.8-14.0)
[2019-10-17 11:31] LABS: D-DIMER QUANT 685.86 ng/ml (<500)
[2019-10-17] MEDS ORDERED: HYDR10TAB PO (11:43)
[2019-10-17 11:47] LABS: ALBUMIN 3.4 GM/DL (3.2-5.2); ALT/SGPT 29 U/L (12-78); BILIRUBIN,DIRECT 0.2 MG/DL (0.0-0.2); BILIRUBIN,TOTAL 0.5 MG/DL (0.2-1.0); BLOOD UREA NITROGEN 10 MG/DL (7-18); CALCIUM LEVEL 8.8 MG/DL (8.8-10.2); CARBON DIOXIDE LEVEL 28 MEQ/L (21-32); CHLORIDE LEVEL 97 MEQ/L (98-107); CK-MB VALUE MASS 3.3 NG/ML (<3.6); CPK CREATINE PHOSPHOKINASE 151 U/L (39-308); CREATININE FOR GFR 0.92 MG/DL (0.70-1.30); GLOMERULAR FILTRATION RATE > 60.0 (>42); GLUCOSE, FASTING 103 MG/DL (70-100); LIPASE 62 U/L (73-393); MB/CK RELATIVE INDEX 2.19 (< OR =4); POTASSIUM SERUM 4.4 MEQ/L (3.5-5.1); SODIUM LEVEL 130 MEQ/L (136-145); TOTAL PROTEIN 7.2 GM/DL (6.4-8.2); TROPONIN I 0.08 NG/ML (< 0.10)
[2019-10-17] MEDS ORDERED: hydrALAZINE 20MG/ML 1ML VIAL (J0360 PER 20MG) IV STA ×2 (12:13→13:00)
[2019-10-17] MEDS ORDERED: **hydrALAZINE** 10 MG TAB PO ONE (12:15)
[2019-10-17] MEDS ORDERED: ISOVUE-370 76% 100ML VIAL As Ordered ONE ×2 (12:25→12:40)
--- NOTE | 2019-10-17 12:30 | REP ---
CHEST, PORTABLE: Two AP portable views of the chest are performed and compared to prior study of 10/08/2019. Right hilar mass and adjacent infiltrative opacity in the right upper lobe are unchanged. Calcified granuloma is again seen in the left lung base. No new abnormal parenchymal opacities are seen. Heart does not appear to be significantly enlarged. Hiatal hernia is again noted. IMPRESSION: Stable right hilar mass and adjacent parenchymal opacity right upper lobe. Electronically Signed by Vipin Matson MD 10/18/2019 11:16 A
--- NOTE | 2019-10-17 13:41 | REP ---
CT ANGIOGRAM CHEST: TECHNIQUE: Axial contrast-enhanced images from the thoracic inlet to the upper abdomen using 100 mL Isovue-370 intravenous contrast material with multiplanar reformations. COMPARISON: 07/22/2019 The right upper lobe mass and consolidative opacity has increased in size compared to a prior study, with a maximum diameter of 7.6 cm. Subcentimeter nodular opacity posteriorly in the right upper lobe more superiorly is stable. There are calcified granulomas in the left lung. There is a tiny right pleural effusion. The heart is normal in size. There is no pericardial effusion. Thoracic aorta is normal in caliber with no aneurysm or dissection, demonstrating atherosclerotic calcifications. Right paratracheal adenopathy is unchanged. There is no evidence of pulmonary embolism. Multiple calcified granulomas are seen in the spleen. Multiple gallstones are seen in the gallbladder. There is a left renal mass superiorly measuring 2.3 cm in diameter. This may represent a solid mass or complex cyst. IMPRESSION: Slight increase in size of right upper lobe mass/consolidation. No change in right paratracheal adenopathy. No evidence of pulmonary embolism. Tiny right pleural effusion. There is a mass or complex cyst in the upper pole of the left kidney 2.3 cm in diameter. Electronically Signed by Vipin Matson MD 10/18/2019 11:21 A
[2019-10-17] MEDS ORDERED: IPRATROPIUM 0.5MG/ALBUTEROL 2.5MG INH SOL UD 3ML (DUONEB) NEB ONE (13:45)
[2019-10-17] MEDS ORDERED: methylPREDNISolone INJ 125 MG/2 ML VIAL (J2930) IV ONE (13:45)
[2019-10-17] MEDS ORDERED: ALBUTEROL SULFATE 2.5 MG/0.5 ML INH NEB SOLN NEB ONE (13:45)
[2019-10-17] MEDS ORDERED: methylPREDNISolone INJ 125 MG/2 ML VIAL (J2930) IV STA (13:46)
--- NOTE | 2019-10-17 13:57 | HPEPDOC ---
[facility] Medical History & Physical Date of Admission Oct 17, 2019 Date of Service: Oct 17, 2019 Primary Care Physician: Ny Sosa MD Attending Physician: RADHA ANDREA MD History and Physical TIME OF SERVICE: 2:15 PM CHIEF COMPLAINT: Sent by PCP HISTORY OF PRESENT ILLNESS: This is a 78-year-old male who was noted to have high blood pressure by his occupational therapist called his PCPs office. The RN at his PCP instructed him to come to the hospital for evaluation. He denies having chest pain, headache, or back pain but has noticed that his shortness of breath is worse than usual today and doesn't improve despite using nebs. He is also had lower abdominal pain for 3 days. His last bowel movement was yesterday evening . On arrival, his blood pressure was noted to be acutely elevated. He received several doses of hydralazine along with nebs and Solu-Medrol . REVIEW OF SYSTEMS: 12 point review of systems negative except as listed in HPI PAST MEDICAL/ SURGICAL HISTORY: Chronic hypertension COPD CELIA on CPAP 8 Dyslipidemia BPH Right upper hilar mass. According to the patient he was told that this is likely cancer but Dr. Rodriguez, did not recommend biopsy is of the location SOCIAL HISTORY: former smoker FAMILY HISTORY: prostate cancer ALLERGIES: Please see below. HOME MEDICATIONS: Please see below. PHYSICAL EXAMINATION: Vital Signs Date Time Temp Pulse Resp B/P (MAP) Pulse Ox O2 Delivery O2 Flow Rate FiO2 10/17/19 10:56 220/104 (142) 10/17/19 11:10 Nasal Cannula 2.0 10/17/19 11:10 97.4 100 25 100 GEN: well nourished / well developed/ NAD INTEGUMENT: He doesn't have facial plethora HEENT:NCAT / lips are not cyanotic / he doesn't have pursed lip breathing / NC in place/mucus membranes moist and pink CVS: RRR/ radial pulses intact /trace lower extremity edema LUNGS: He has difficulties speak full sentences without stopping to take a breath / there is decreased respiratory expansion/ signs are diminished maverick aterally MSK/EXTREMITIES: finger nail clubbing NEURO: CN 2-12 are grossly intact / speech is not dysarthric PSYCH: alert and oriented / able to understand and follow all commands LABORATORY DATA: Immature Granulocyte % (Auto) 0.8, Neutrophils (%) (Auto) 73.5H, Lymphocytes (%) (Auto) 10.8L, Monocytes (%) (Auto) 10.6H, Eosinophils (%) (Auto) 3.8H, Basophils (%) (Auto) 0.5, Neutrophils # (Auto) 8.0, Lymphocytes # (Auto) 1.2L, Monocytes # (Auto) 1.2H, Eosinophils # (Auto) 0.4, Basophils # (Auto) 0.1, Nucleated Red Blood Cells % (auto) 0.0, Prothrombin Time 14.2H, Prothromb Time International Ratio 1.13, D-Dimer, Quantitative 685.86H, Anion Gap 5L, Glomerular Filtration Rate > 60.0, Calcium Level 8.8, Total Bilirubin 0.5, Direct Bilirubin 0.2, Aspartate Amino Transf (AST/SGOT) 20, Alanine Aminotransferase (ALT/SGPT) 29, Alkaline Phosphatase 82, Total Creatine Kinase 151, Creatine Kinase MB 3.3, Creatine Kinase MB Relative Index 2.19, Troponin I 0.08, Total Protein 7.2, Albumin 3.4, Albumin/Globulin Ratio 0.9, Lipase 62L IMAGING: Chest x-ray "IMPRESSION: Stable right hilar mass and adjacent parenchymal opacity right upper lobe." CT chest "IMPRESSION: Slight increase in size of right upper lobe mass/consolidation. No change in right paratracheal adenopathy. No evidence of pulmonary embolism. Tiny right pleural effusion. There is a mass or complex cyst in the upper pole of the left kidney 2.3 cm in diameter." ASSESSMENT: Mr. Romero is a 78-year-old with a history of HTN, COPD, CELIA, dyslipidemia, right upper hilar mass, newly discovered renal mass was admitted for management of shortness of breath, likely due to acute COPD, and hypertensive urgency. PLAN: 1. Acute COPD Trigger may be: viral infection, myocardial ischemia, heart failure, or aspiration He received Solu-Medrol in the ER Plan: admit to PCU / supplemental O2 / continuous pulse oximetry / aspiration precautions / COPD diet / f/u ABG, respiratory panel/ Dunebs Q6H, Albuterol Q1HP, increase Prednisone from 5 mg up to 40 mg daily + PPI , Spiriva / follow-up troponins and BNP/ Tessalon Pearls 2. Hypertensive Urgency: He doesn't have FLYNN, chest pain / back pain / flank PAIN It is unclear what the trigger is, at this time Plan: Increase amlodipine from 2.5 up to 10 mg daily, increase hydralazine from 10 mg twice a day up to 20 mg twice a day, continue with enalapril 20 mg daily & Lasix 40 mg daily / will aim to lower BP by 25% w/in the first 2-4 hours with target BP of <160/100 / low salt diet 3.SIRS Likely reactive due to the cancer SIRS criteria include HR >90 / RR < 20 Chest x-ray shows right hilar mass and adjacent parenchymal , but he doesn't have c/o c/w with pneumonia Plan: Monitor vital signs 4. Left renal mass Plan: Discuss possible follow-up with urology on an outpatient basis with his PCP 5. 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 Plan: Check urine osmolality, urine sodium and serum osmolality 6. Dyslipidemia - simvastatin 7. Sleep apnea - CPAP with 8 cm of water based on recent sleep study 8. BPH - finasteride 9. Obesity with coexisting sleep apnea and BMI 34.5 complicates care - f/u A1C DVT PROPHYLAXIS: Lovenox DISPOSITION: Pending clinical course Home Medications Scheduled Albuterol Sulf (Albuterol Sulfate) 2.5 Mg/3 Ml Nebu, 2.5 MG INH QID for SHORTNESS OF BREATH Amlodipine Besylate (Amlodipine Besylate) 2.5 Mg Tablet, 2.5 MG PO QHS Aspirin (Aspirin EC) 81 Mg Tab, 81 MG PO DAILY Benazepril Hcl (Benazepril HCl) 20 Mg Tab, 20 MG PO BID Doxycycline Hyclate (Doxycycline Hyclate) 100 Mg Capsule, 100 MG PO BID FILLED 10/07 FOR 10 DAYS Finasteride (Finasteride) 5 Mg Tablet, 5 MG PO DAILY Fluoxetine Hcl (Fluoxetine HCl) 20 Mg Cap, 20 MG PO QHS Furosemide (Furosemide) 20 Mg Tablet, 40 MG PO DAILY Hydralazine HCl (Hydralazine HCl) 10 Mg Tablet, 10 MG PO BID Pantoprazole Sodium (Pantoprazole Sodium) 40 Mg Tab, 40 MG PO DAILY Prednisone (Prednisone) 5 Mg Tablet, 5 MG PO QPM Salmeterol/Fluticasone (Advair 500-50 Diskus) 28 Puff/Inhaler Aerp, 1 PUFF INH BID Simvastatin (Simvastatin) 20 Mg Tab, 20 MG PO QHS Tiotropium [place] (Spiriva) 18 Mcg Cap, 18 MCG INH DAILY Scheduled PRN Albuterol Sulfate (Proair Hfa) 108 Mcg/Act Aer, 1 PUFF IN Q4H PRN for SHORTNESS OF BREATH Hydroxyzine HCl (Hydroxyzine HCl) 10 Mg Tab, 10 MG PO TID PRN for ANXIETY Allergies Coded Allergies: Sulfa (Sulfonamide Antibiotics) (Verified Allergy, Intermediate, rash, 10/17/19) A-FIB/CHADSVASC A-FIB History Current/History of A-Fib/PAF?: No Current PO Anticoag Therapy: No RADHA ANDREA MD Oct 17, 2019 13:57
[2019-10-17] MEDS ORDERED: ACETAMINOPHEN TAB 650MG DOSE (2X325MG) PO PRN (14:00)
[2019-10-17] MEDS ORDERED: MAALOX 30 ML SUSP *UDC PO PRN (14:00)
[2019-10-17] MEDS ORDERED: MOM 30ML SUSPENSION UDC PO PRN (14:00)
[2019-10-17 14:14] LABS: NT-PRO BNP 211 PG/ML (<450)
[2019-10-17] MEDS ORDERED: DOXY100C PO (15:09)
[2019-10-17] MEDS: FUROSEMIDE 40 MG TAB PO SCH (15:27)
[2019-10-17] MEDS: amLODIPine 10 MG TAB PO SCH (15:27)
[2019-10-17] MEDS: ENOXAPARIN 40MG/0.4ML SYRINGE (J1650 PER 10MG) SC SCH (15:30)
[2019-10-17] MEDS ORDERED: hydrOXYzine 10 MG TAB PO PRN (16:00)
[2019-10-17] MEDS ORDERED: BENZONATATE 100 MG CAP PO PRN (16:00)
[2019-10-17 16:04] VITALS: BP 112/70
[2019-10-17] MEDS ORDERED: SLF 3 ML SYR IV PRN (16:30)
[2019-10-17 17:16] LABS: OSMOLALITY URINE 377 MOSM/KG (500-800)
[2019-10-17 17:39] LABS: SODIUM,RANDOM URINE 28 MEQ/L
[2019-10-17 17:59] LABS: TROPONIN I 0.11 NG/ML (< 0.10)
[2019-10-17 19:00] VITALS: O2SAT 97
[2019-10-17] MEDS: IPRATROPIUM 0.5MG/ALBUTEROL 2.5MG INH SOL UD 3ML (DUONEB) NEB SCH (19:36)
[2019-10-17] MEDS: FLUoxetine 20 MG CAP PO SCH (19:59)
[2019-10-17 20:00] VITALS: BP 168/80; O2SAT 97
[2019-10-17] MEDS: **hydrALAZINE** 10 MG TAB PO SCH (20:00)
[2019-10-17] MEDS: SLF 3 ML SYR IV SCH (20:01)
[2019-10-17] MEDS: BENAZEPRIL 20 MG TAB PO SCH (20:01)
[2019-10-17] MEDS: SIMVASTATIN 20 MG TAB PO SCH (20:01)
[2019-10-17 21:00] VITALS: O2SAT 96
[2019-10-17 22:00] VITALS: O2SAT 97
[2019-10-17 23:00] VITALS: O2SAT 97
[2019-10-17] MEDS: ALBUTEROL SULFATE 2.5 MG/0.5 ML INH NEB SOLN NEB PRN (23:45)
[2019-10-18] VITALS (9 sets, daily range): BP systolic 128–174; BP diastolic 72–92; O2SAT 97–99
[2019-10-18] MEDS: IPRATROPIUM 0.5MG/ALBUTEROL 2.5MG INH SOL UD 3ML (DUONEB) NEB SCH ×4 (01:04→20:12)
[2019-10-18] MEDS: ALBUTEROL SULFATE 2.5 MG/0.5 ML INH NEB SOLN NEB PRN ×2 (03:55→07:08)
[2019-10-18] MEDS: SLF 3 ML SYR IV SCH ×3 (03:56→20:13)
[2019-10-18 05:13] LABS: HEMATOCRIT 38.5 % (42.0-52.0); HEMOGLOBIN 12.4 g/dl (13.5-17.5); MEAN CORPUSCULAR HEMOGLOBIN 26.9 pg (27.0-33.0); MEAN CORPUSCULAR HGB CONC 32.2 g/dl (32.0-36.5); MEAN CORPUSCULAR VOLUME 83.5 fl (80.0-96.0); PLATELET COUNT, AUTOMATED 394 10^3/uL (150-450); RED BLOOD COUNT 4.61 10^6/uL (4.30-6.10); WHITE BLOOD COUNT 9.1 10^3/uL (4.0-10.0)
[2019-10-18 05:47] LABS: BLOOD UREA NITROGEN 15 MG/DL (7-18); CALCIUM LEVEL 8.7 MG/DL (8.8-10.2); CARBON DIOXIDE LEVEL 25 MEQ/L (21-32); CHLORIDE LEVEL 97 MEQ/L (98-107); CREATININE FOR GFR 1.03 MG/DL (0.70-1.30); GLOMERULAR FILTRATION RATE > 60.0 (>42); GLUCOSE, FASTING 145 MG/DL (70-100); SODIUM LEVEL 129 MEQ/L (136-145)
[2019-10-18] MEDS: TIOTROPIUM INHALER/CAPSULE (SPIRIVA) INH SCH (07:08)
[2019-10-18] MEDS: FINASTERIDE 5 MG TAB PO SCH (08:29)
[2019-10-18] MEDS: FUROSEMIDE 40 MG TAB PO SCH (08:29)
[2019-10-18] MEDS: ENOXAPARIN 40MG/0.4ML SYRINGE (J1650 PER 10MG) SC SCH (08:29)
[2019-10-18] MEDS: PANTOPRAZOLE 40MG TAB (PROTONIX) PO SCH (08:29)
[2019-10-18] MEDS: predniSONE 20 MG TAB PO SCH (08:30)
[2019-10-18] MEDS: ASPIRIN 81 MG ENTERIC TAB PO SCH (08:33)
[2019-10-18] MEDS: BENAZEPRIL 20 MG TAB PO SCH ×2 (08:33→20:10)
[2019-10-18] MEDS: **hydrALAZINE** 10 MG TAB PO SCH ×2 (08:33→20:10)
[2019-10-18] MEDS: amLODIPine 10 MG TAB PO SCH (08:33)
--- NOTE | 2019-10-18 11:13 | IPNPDOC ---
Subjective Date Seen The patient was seen on 10/18/19. Subjective Chief Complaint/HPI Patient is feeling slightly better but is still complaining of shortness of breath. As per patient, he is not aware about a kidney mass, but he knows about the lung mass and follows up with Dr. pringle as an outpatient General: Denies: ROS Unobtainable, Chills, Night Sweats, Fatigue, Malaise, Normal Appetite, Other Symptoms Constitutional: Denies: Chills, Fever, Malaise, Night Sweats, Weakness, Fatig ue, Weight Loss, Lethargy, Other Pulmonary: Reports: Dyspnea Cardiovascular: Denies: Chest Pain, Palpitations, Orthopnea, Paroxysmal Noc. Dyspnea, Edema, Lt Headedness, Other Symptoms Gastrointestinal: Denies: Nausea, Vomiting, Abdominal Pain, Diarrhea, Constipation, Melena, Hematochezia, Other Symptoms Musculoskeletal: Denies: Neck Pain, Back Pain, Shoulder Pain, Arm Pain, Hand Pain, Leg Pain, Foot Pain, Joint Pain, Muscle Pain, Spasms, Other Symptoms Neurological: Denies: Weakness, Numbness, Incoordination, Change in speech, Confusion, Seizures, Other Symptoms Objective Physical Examination General Exam: Positive: Alert, Cooperative Eye Exam: Positive: PERRLA, Conjunctiva & lids normal ENT Exam: Positive: Atraumatic Neck Exam: Positive: Supple Chest Exam: Positive: Other (decreased breath sounds bilaterally) Heart Exam: Positive: Rate Normal, Normal S1, Normal S2 Abdomen Exam: Positive: Normal bowel sounds, Soft Extremity Exam: Positive: Normal pulses Skin Exam: Positive: Nl turgor and temperature Assessment /Plan Problems (1) COPD exacerbation Status: Acute Problem Text: Acute exacerbation of COPD Patient seems to be responding to supplemental oxygen, DuoNeb's every 6 hours albuterol every hour and prednisone 40 mg by mouth daily along with PPI screen Will continue present care. Patient will probably require 1-2 more days until he is clinically stable Rubia Crockett for cough when necessary Follow-up a.m. labs (2) HTN (hypertension) Status: Chronic Problem Text: Uncontrolled hypertension Denied any headache, chest pain, flank pain or back pain His amlodipine was increased to 10 mg by mouth daily along with hydralazine 20 mg twice a day Continue enalapril 20 mg daily and Lasix 40 mg by mouth daily Blood pressures seem to be improving and we'll continue monitoring and adjusting dose of meds (3) Lung mass Status: Chronic Problem Text: Patient has a history of right upper hilar lung mass and follows up with Dr. pringle Repeat CAT scan shows: Slight increase in size of right upper lobe mass/cons olidation. No change in right paratracheal adenopathy. No evidence of pulmonary embolism. Tiny right pleural effusion. Once his discharge. He can follow with Dr. pringle, and an outpatient for further management Discussed management and further plan of care with patient at bedside (4) Renal mass Status: Acute Problem Text: Patient is not aware about the renal mass On the CTA of chest. It also showed: There is a mass or complex cyst in the upper pole of the left kidney 2.3 cm in diameter. Patient advised to follow with urology as outpatient once his discharge from the hospital We will provide him with the name and phone number of the urologists and make an appointment as well (5) Hyponatremia Status: Acute Problem Text: Multi-factorial, most likely secondary to exacerbation of COPD, SIADH and or possibly secondary to lung mass and renal mass Patient is on normal saline infusion and we'll continue monitoring his sodium level (6) Dyslipidemia Status: Chronic Problem Text: Continue home meds (7) GERD (gastroesophageal reflux disease) Status: Chronic Problem Text: Continue home meds (8) Chronic respiratory failure with hypoxia Status: Chronic Problem Text: Patient has a history of for chronic hypoxic respiratory failure and presently on home oxygen by 2 L nasal cannula Patient also receiving oxygen supplementation to keep his pulse ox more than 88% inpatient Further treatment as per COPD, please see above Plan/VTE VTE Prophylaxis Ordered?: Yes VS, I&O, 24H, [facility] Vital Signs/I&O Vital Signs Date Time Temp Pulse Resp B/P (MAP) Pulse Ox O2 Delivery O2 Flow Rate FiO2 10/18/19 08:33 128/83 10/18/19 08:00 97.5 106 19 98 Nasal Cannula 2.0 I&O- Last 24 Hours up to 6 AM 10/18/19 06:00 Intake Total 0 ml Output Total 360 ml Balance -360 ml Laboratory Data 24H LABS Laboratory Tests 2 10/17/19 17:02: Urine Random Osmolality 377L, Urine Random Sodium 28 10/17/19 17:04: Osmolality 275L, Troponin I 0.11#H 10/17/19 19:50: Bedside Glucose (Misc Panel) 229H 10/17/19 22:33: Troponin I 0.18#H 10/18/19 04:43: Nucleated Red Blood Cells % (auto) 0.0, Anion Gap 7L, Glomerular Filtration Rate > 60.0, Calcium Level 8.7L CBC/BMP Laboratory Tests 10/18/19 04:43 Microbiology Microbiology 10/17/19 Respiratory Virus Panel (PCR) (JULIAN) - Final, Complete ATTILA TRAYLOR MD Oct 18, 2019 11:13
[2019-10-18] MEDS: **hydrALAZINE** 10 MG TAB PO PRN ×2 (17:29→22:16)
[2019-10-18] MEDS: FLUoxetine 20 MG CAP PO SCH (20:10)
[2019-10-18] MEDS: SIMVASTATIN 20 MG TAB PO SCH (20:10)
--- NOTE | 2019-10-18 21:18 | ECGEPIP ---
[facility] - ED Test Date: 2019-10-17 Pat Name: DAYANNA BROWN Department: Room: - Gender: Male In[employer] Manufacture: arsh : [id number] Requested By: Tanya Restrepo Order Number: [id number] Reading MD: Pedrito Moralez Measurements Intervals [place] Rate: 99 P: 33 AR: 153 QRS: 9 QRSD: 90 T: -9 QT: 326 QTc: 419 Interpretive Statements SINUS RHYTHM POOR R WAVE PROGRESSION NONSPECIFIC ST & T-WAVE ABNORMALITY SIMILAR TO 10/08/19 Electronically Signed on 10-18-2019 21:18:38 EDT by Pedrito Moralez
[2019-10-19] VITALS (22 sets, daily range): BP systolic 126–182; BP diastolic 62–94; O2SAT 93–98
[2019-10-19] MEDS ORDERED: hydrALAZINE 20MG/ML 1ML VIAL (J0360 PER 20MG) IV ONE (00:30)
[2019-10-19] MEDS: IPRATROPIUM 0.5MG/ALBUTEROL 2.5MG INH SOL UD 3ML (DUONEB) NEB SCH ×4 (01:16→19:56)
[2019-10-19] MEDS: SLF 3 ML SYR IV SCH ×3 (06:05→20:49)
[2019-10-19] MEDS: TIOTROPIUM INHALER/CAPSULE (SPIRIVA) INH SCH (07:46)
[2019-10-19] MEDS: BENAZEPRIL 20 MG TAB PO SCH ×2 (08:41→20:50)
[2019-10-19] MEDS: ENOXAPARIN 40MG/0.4ML SYRINGE (J1650 PER 10MG) SC SCH (08:41)
[2019-10-19] MEDS: FINASTERIDE 5 MG TAB PO SCH (08:41)
[2019-10-19] MEDS: FUROSEMIDE 40 MG TAB PO SCH (08:42)
[2019-10-19] MEDS: amLODIPine 10 MG TAB PO SCH (08:42)
[2019-10-19] MEDS: ASPIRIN 81 MG ENTERIC TAB PO SCH (08:42)
[2019-10-19] MEDS: predniSONE 20 MG TAB PO SCH (08:42)
[2019-10-19] MEDS: **hydrALAZINE** 10 MG TAB PO SCH ×2 (08:42→20:50)
[2019-10-19] MEDS: PANTOPRAZOLE 40MG TAB (PROTONIX) PO SCH (08:42)
[2019-10-19] MEDS: MIRALAX *UNIT DOSE* 17GM PACKET PO SCH (09:55)
[2019-10-19] MEDS: methylPREDNISolone INJ 125 MG/2 ML VIAL (J2930) IV SCH ×2 (09:55→17:17)
--- NOTE | 2019-10-19 10:14 | IPNPDOC ---
Subjective Date Seen The patient was seen on 10/19/19. Subjective Chief Complaint/HPI Patient is still has an increasing shortness of breath today, not improved since yesterday. No chest pain, no nausea, vomiting, diarrhea General: Denies: ROS Unobtainable, Chills, Night Sweats, Fatigue, Malaise, Normal Appetite, Other Symptoms Constitutional: Denies: Chills, Fever, Malaise, Night Sweats, Weakness, Fatigue, Weight Loss, Lethargy, Other Skin: Denies: Rash, Lesions, Jaundice, Bruising, Itching, Dry, Breakdown, Nail Changes, Other Pulmonary: Reports: Dyspnea Cardiovascular: Denies: Chest Pain, Palpitations, Orthopnea, Paroxysmal Noc. Dyspnea, Edema, Lt Headedness, Other Symptoms Gastrointestinal: Denies: Nausea, Vomiting, Abdominal Pain, Diarrhea, Constipation, Melena, Hematochezia, Other Symptoms Genitourinary: Denies: Dysuria, Frequency, Incontinence, Hematuria, Retention, Other Symptoms Hematologic: Denies: Bruising, Bleeding Excessively Musculoskeletal: Denies: Neck Pain, Back Pain, Shoulder Pain, Arm Pain, Hand Pain, Leg Pain, Foot Pain, Joint Pain, Muscle Pain, Spasms, Other Symptoms Neurological: Denies: Weakness, Numbness, Incoordination, Change in speech, Confusion, Seizures, Other Symptoms Objective Physical Examination Eye Exam: Positive: PERRLA, Conjunctiva & lids normal ENT Exam: Positive: Atraumatic Neck Exam: Positive: Supple Chest Exam: Positive: Wheezing (bilateral expiratory wheezing audible) Heart Exam: Positive: Rate Normal, Normal S1, Normal S2 Abdomen Exam: Positive: Normal bowel sounds, Soft Extremity Exam: Positive: Normal pulses Skin Exam: Positive: Nl turgor and temperature Assessment /Plan Problems (1) COPD exacerbation Status: Acute Problem Text: . She was admitted with acute exacerbation of COPD , Which is still not under well control Will DC prednisone and start him on Solu-Medrol 60 mg IV every 8 hours Continue DuoNeb, but change it to every 4 hours and Proventil every hour when necessary Pulmonary screen pending Patient will prior. He required 2 more days before he is medically stable Tessalon Perle for cough when necessary A.m. laboratory work ordered. Also, portable chest x-ray ordered to compare with old chest x-ray (2) HTN (hypertension) Status: Chronic Problem Text: Uncontrolled hypertension Denied any headache, chest pain, flank pain or back pain His amlodipine was increased to 10 mg by mouth daily along with hydralazine 20 mg twice a day Continue enalapril 20 mg daily and Lasix 40 mg by mouth daily Patient. Blood pressures under well control now. Today, his readings was 152/68. Continue monitoring on the current medications and adjust meds accordingly (3) Lung mass Status: Chronic Problem Text: Patient has a history of right upper hilar lung mass and follows up with Dr. pringle Repeat CAT scan shows: Slight increase in size of right upper lobe mass/consolidation. No change in right paratracheal adenopathy. No evidence of pulmonary embolism. Tiny right pleural effusion. Once his discharge. He can follow with Dr. pringle, and an outpatient for further management Discussed management and further plan of care with patient at bedside (4) Renal mass Status: Acute Problem Text: Patient is not aware about the renal mass On the CTA of chest. It also showed: There is a mass or complex cyst in the upper pole of the left kidney 2.3 cm in diameter. Patient advised to follow with urology as outpatient once his discharge from the hospital We will provide him with the name and phone number of the urologists and make an appointment as well (5) Hyponatremia Status: Acute Problem Text: Multi-factorial, most likely secondary to exacerbation of COPD, SIADH and or possibly secondary to lung mass and renal mass Patient is on normal saline infusion and we'll continue monitoring his sodium level (6) Dyslipidemia Status: Chronic Problem Text: Continue home meds (7) GERD (gastroesophageal reflux disease) Status: Chronic Problem Text: Continue home meds (8) Chronic respiratory failure with hypoxia Status: Chronic Problem Text: Patient has a history of for chronic hypoxic respiratory failure and presently on home oxygen by 2 L nasal cannula Patient also receiving oxygen supplementation to keep his pulse ox more than 88% inpatient Further treatment as per COPD, please see above Plan/VTE VTE Prophylaxis Ordered?: Yes VS, I&O, 24H, Fishbone Vital Signs/I&O Vital Signs Date Time Temp Pulse Resp B/P (MAP) Pulse Ox O2 Delivery O2 Flow Rate FiO2 10/19/19 09:00 94 Nasal Cannula 2.0 10/19/19 08:42 124 140/72 10/19/19 08:00 98.2 0 I&O- Last 24 Hours up to 6 AM 10/19/19 06:00 Intake Total 1140 ml Output Total 650 ml Balance 490 ml Laboratory Data Microbiology Microbiology 10/17/19 Respiratory Virus Panel (PCR) (JULIAN) - Final, Complete ATTILA TRAYLOR MD Oct 19, 2019 10:14
[2019-10-19] MEDS: ADVAIR HFA 230/21MCG INHALER INH SCH ×2 (11:28→19:51)
--- NOTE | 2019-10-19 11:28 | REP ---
REASON FOR EXAM: History of COPD and CHF. COMPARISON: Multiple, the latest 10/17/2019. Abnormal right upper lobe opacity with right hilar fullness and left lower lobe nodule, all unchanged. The cardiac silhouette is magnified by technique. There is a hiatal hernia, status quo. The pleural angles are again seen to be sharp. No new abnormal opacities have developed. There is no change in the osseous structures. IMPRESSION: No change with findings as described above. Electronically Signed by Luis Angel Cardoso DO 10/19/2019 03:04 P
[2019-10-19] MEDS: SIMVASTATIN 20 MG TAB PO SCH (20:49)
[2019-10-19] MEDS: FLUoxetine 20 MG CAP PO SCH (20:49)
[2019-10-20] VITALS (19 sets, daily range): BP systolic 130–192; BP diastolic 60–94; O2SAT 94–97
[2019-10-20] MEDS: IPRATROPIUM 0.5MG/ALBUTEROL 2.5MG INH SOL UD 3ML (DUONEB) NEB SCH ×4 (02:49→19:21)
[2019-10-20] MEDS: methylPREDNISolone INJ 125 MG/2 ML VIAL (J2930) IV SCH ×3 (03:36→17:32)
[2019-10-20] MEDS: SLF 3 ML SYR IV SCH ×3 (04:55→20:10)
[2019-10-20] MEDS: **hydrALAZINE** 10 MG TAB PO PRN (04:57)
[2019-10-20 05:39] LABS: BASO % 0.1 % (0.0-1.0); EOS % 0.1 % (0.0-3.0); HEMATOCRIT 36.9 % (42.0-52.0); HEMOGLOBIN 11.8 g/dl (13.5-17.5); LYMPH # 0.6 10^3/uL (1.5-5.0); LYMPH % 3.6 % (24.0-44.0); MEAN CORPUSCULAR HEMOGLOBIN 26.9 pg (27.0-33.0); MEAN CORPUSCULAR VOLUME 84.2 fl (80.0-96.0); MONO # 0.6 10^3/uL (0.0-0.8); MONO % 3.5 % (0.0-5.0); NEUTROPHILS # 14.4 10^3/uL (1.5-8.5); NEUTROPHILS % 91.7 % (36.0-66.0); PLATELET COUNT, AUTOMATED 435 10^3/uL (150-450); RED BLOOD COUNT 4.38 10^6/uL (4.30-6.10); WHITE BLOOD COUNT 15.7 10^3/uL (4.0-10.0)
[2019-10-20 06:03] LABS: ALBUMIN 2.9 GM/DL (3.2-5.2); ALT/SGPT 27 U/L (12-78); BILIRUBIN,TOTAL 0.3 MG/DL (0.2-1.0); BLOOD UREA NITROGEN 19 MG/DL (7-18); CALCIUM LEVEL 8.5 MG/DL (8.8-10.2); CARBON DIOXIDE LEVEL 27 MEQ/L (21-32); CHLORIDE LEVEL 99 MEQ/L (98-107); GLOMERULAR FILTRATION RATE > 60.0 (>42); GLUCOSE, FASTING 149 MG/DL (70-100); MAGNESIUM LEVEL 2.1 MG/DL (1.8-2.4); POTASSIUM SERUM 4.5 MEQ/L (3.5-5.1); SODIUM LEVEL 134 MEQ/L (136-145); TOTAL PROTEIN 6.3 GM/DL (6.4-8.2)
[2019-10-20] MEDS: TIOTROPIUM INHALER/CAPSULE (SPIRIVA) INH SCH (07:22)
[2019-10-20] MEDS: ADVAIR HFA 230/21MCG INHALER INH SCH ×2 (07:22→19:21)
[2019-10-20] MEDS: amLODIPine 10 MG TAB PO SCH (09:07)
[2019-10-20] MEDS: PANTOPRAZOLE 40MG TAB (PROTONIX) PO SCH (09:08)
[2019-10-20] MEDS: MIRALAX *UNIT DOSE* 17GM PACKET PO SCH (09:08)
[2019-10-20] MEDS: FUROSEMIDE 40 MG TAB PO SCH (09:08)
[2019-10-20] MEDS: FINASTERIDE 5 MG TAB PO SCH (09:08)
[2019-10-20] MEDS: **hydrALAZINE** 10 MG TAB PO SCH ×2 (09:08→20:09)
[2019-10-20] MEDS: ASPIRIN 81 MG ENTERIC TAB PO SCH (09:08)
[2019-10-20] MEDS: ENOXAPARIN 40MG/0.4ML SYRINGE (J1650 PER 10MG) SC SCH (09:09)
[2019-10-20] MEDS: BENAZEPRIL 20 MG TAB PO SCH ×2 (09:18→20:09)
--- NOTE | 2019-10-20 10:58 | IPNPDOC ---
Subjective Date Seen The patient was seen on 10/20/19. Subjective Chief Complaint/HPI Patient feeling slightly better today than yesterday but still has shortness of breath General: Denies: ROS Unobtainable, Chills, Night Sweats, Fatigue, Malaise, Normal Appetite, Other Symptoms Constitutional: Denies: Chills, Fever, Malaise, Night Sweats, Weakness, Fatigue, Weight Loss, Lethargy, Other Skin: Denies: Rash, Lesions, Jaundice, Bruising, Itching, Dry, Breakdown, Nail Changes, Other Pulmonary: Reports: Dyspnea Cardiovascular: Denies: Chest Pain, Palpitations, Orthopnea, Paroxysmal Noc. Dyspnea, Edema, Lt Headedness, Other Symptoms Gastrointestinal: Denies: Nausea, Vomiting, Abdominal Pain, Diarrhea, Constipation, Melena, Hematochezia, Other Symptoms Musculoskeletal: Denies: Neck Pain, Back Pain, Shoulder Pain, Arm Pain, Hand Pain, Leg Pain, Foot Pain, Joint Pain, Muscle Pain, Spasms, Other Symptoms Neurological: Denies: Weakness, Numbness, Incoordination, Change in speech, Confusion, Seizures, Other Symptoms Objective Physical Examination Eye Exam: Positive: PERRLA, Conjunctiva & lids normal ENT Exam: Positive: Atraumatic Neck Exam: Positive: Supple Chest Exam: Positive: Wheezing (bilateral expiratory wheezing audible) Heart Exam: Positive: Rate Normal, Normal S1, Normal S2 Abdomen Exam: Positive: Normal bowel sounds, Soft Extremity Exam: Positive: Normal pulses Skin Exam: Positive: Nl turgor and temperature Assessment /Plan Problems (1) COPD exacerbation Status: Acute Problem Text: . She was admitted with acute exacerbation of COPD Patient seems to be clinically improving now Continue Solu-Medrol 60 mg IV every 8 hours, there is slight elevation in mucositis secondary to steroids Continue DuoNeb, but change it to every 4 hours and Proventil every hour when necessary Patient will prior. He required 2 more days before he is medically stable Tessalon Perle for cough when necessary A.m. labs (2) HTN (hypertension) Status: Chronic Problem Text: Uncontrolled hypertension Denied any headache, chest pain, flank pain or back pain His amlodipine was increased to 10 mg by mouth daily along with hydralazine 20 mg twice a day Continue enalapril 20 mg daily and Lasix 40 mg by mouth daily Patient, his blood pressure is 162/78. We will add small doses of beta blockers today to control blood pressure as well as tachycardia (3) Lung mass Status: Chronic Problem Text: Patient has a history of right upper hilar lung mass and follows up with Dr. pringle Repeat CAT scan shows: Slight increase in size of right upper lobe mass/consolidation. No change in right paratracheal adenopathy. No evidence of pulmonary embolism. Tiny right pleural effusion. Once his discharge. He can follow with Dr. pringle, and an outpatient for further management Discussed management and further plan of care with patient at bedside (4) Renal mass Status: Acute Problem Text: Patient is not aware about the renal mass On the CTA of chest. It also showed: There is a mass or complex cyst in the upper pole of the left kidney 2.3 cm in diameter. Patient advised to follow with urology as outpatient once his discharge from the hospital We will provide him with the name and phone number of the urologists and make an appointment as well (5) Hyponatremia Status: Acute Problem Text: Multi-factorial, most likely secondary to exacerbation of COPD, SIADH and or possibly secondary to lung mass and renal mass Patient is on normal saline infusion and we'll continue monitoring his sodium level (6) Dyslipidemia Status: Chronic Problem Text: Continue home meds (7) GERD (gastroesophageal reflux disease) Status: Chronic Problem Text: Continue home meds (8) Chronic respiratory failure with hypoxia Status: Chronic Problem Text: Patient has a history of for chronic hypoxic respiratory failure and presently on home oxygen by 2 L nasal cannula Patient also receiving oxygen supplementation to keep his pulse ox more than 88% inpatient Further treatment as per COPD, please see above Plan/VTE VTE Prophylaxis Ordered?: Yes [facility] Vital Signs/I&O Vital Signs Date Time Temp Pulse Resp B/P (MAP) Pulse Ox O2 Delivery O2 Flow Rate FiO2 10/20/19 09:07 121 172/80 10/20/19 08:00 98.0 24 94 Nasal Cannula 2.0 I&O- Last 24 Hours up to 6 AM 10/20/19 06:00 Intake Total 1290 ml Output Total 600 ml Balance 690 ml Laboratory Data 24H LABS Laboratory Tests 2 10/20/19 05:15: Immature Granulocyte % (Auto) 1.0, Neutrophils (%) (Auto) 91.7H, Lymphocytes (%) (Auto) 3.6L, Monocytes (%) (Auto) 3.5, Eosinophils (%) (Auto) 0.1, Basophils (%) (Auto) 0.1, Neutrophils # (Auto) 14.4H, Lymphocytes # (Auto) 0.6L, Monocytes # (Auto) 0.6, Eosinophils # (Auto) 0.0, Basophils # (Auto) 0.0, Nucleated Red Blood Cells % (auto) 0.0, Anion Gap 8, Glomerular Filtration Rate > 60.0, Calcium Level 8.5L, Magnesium Level 2.1, Total Bilirubin 0.3, Aspartate Amino Transf (AST/SGOT) 18, Alanine Aminotransferase (ALT/SGPT) 27, Alkaline Phosphatase 67, Total Protein 6.3L, Albumin 2.9L, Albumin/Globulin Ratio 0.9 CBC/BMP Laboratory Tests 10/20/19 05:15 Microbiology Microbiology 10/17/19 Respiratory Virus Panel (PCR) (JULIAN) - Final, Complete ATTILA TRAYLOR MD Oct 20, 2019 10:58
[2019-10-20] MEDS: METOPROLOL TART 12.5 MG PER 1/2 TAB PO SCH ×3 (12:37→23:39)
[2019-10-20] MEDS: SIMVASTATIN 20 MG TAB PO SCH (20:08)
[2019-10-20] MEDS: FLUoxetine 20 MG CAP PO SCH (20:08)
[2019-10-21] VITALS (19 sets, daily range): BP systolic 157–178; BP diastolic 72–86; O2SAT 95–99
[2019-10-21] MEDS: IPRATROPIUM 0.5MG/ALBUTEROL 2.5MG INH SOL UD 3ML (DUONEB) NEB SCH ×4 (01:42→19:35)
[2019-10-21] MEDS: methylPREDNISolone INJ 125 MG/2 ML VIAL (J2930) IV SCH ×3 (01:49→18:07)
[2019-10-21] MEDS: METOPROLOL TART 12.5 MG PER 1/2 TAB PO SCH ×4 (05:03→23:39)
[2019-10-21] MEDS: SLF 3 ML SYR IV SCH ×3 (05:04→21:39)
[2019-10-21] MEDS: ADVAIR HFA 230/21MCG INHALER INH SCH ×2 (07:14→19:35)
[2019-10-21] MEDS: TIOTROPIUM INHALER/CAPSULE (SPIRIVA) INH SCH (07:14)
[2019-10-21] MEDS ORDERED: cloNIDine HCL 0.1 MG/24 HR PATCH TOP SCH (09:00)
[2019-10-21] MEDS: ENOXAPARIN 40MG/0.4ML SYRINGE (J1650 PER 10MG) SC SCH (09:52)
[2019-10-21] MEDS: ASPIRIN 81 MG ENTERIC TAB PO SCH (09:53)
[2019-10-21] MEDS: FUROSEMIDE 40 MG TAB PO SCH (09:53)
[2019-10-21] MEDS: MIRALAX *UNIT DOSE* 17GM PACKET PO SCH (09:53)
[2019-10-21] MEDS: FINASTERIDE 5 MG TAB PO SCH (09:53)
[2019-10-21] MEDS: PANTOPRAZOLE 40MG TAB (PROTONIX) PO SCH (09:53)
[2019-10-21] MEDS: amLODIPine 10 MG TAB PO SCH (09:54)
[2019-10-21] MEDS: **hydrALAZINE** 10 MG TAB PO SCH ×2 (09:54→21:18)
[2019-10-21] MEDS: BENAZEPRIL 20 MG TAB PO SCH ×2 (10:13→21:18)
[2019-10-21] MEDS: **hydrALAZINE** 10 MG TAB PO PRN ×2 (13:07→23:39)
[2019-10-21] MEDS: FLUoxetine 20 MG CAP PO SCH (21:18)
[2019-10-21] MEDS: SIMVASTATIN 20 MG TAB PO SCH (21:18)
[2019-10-22] VITALS (13 sets, daily range): BP systolic 144–210; BP diastolic 68–104; O2SAT 93–97
[2019-10-22] MEDS: IPRATROPIUM 0.5MG/ALBUTEROL 2.5MG INH SOL UD 3ML (DUONEB) NEB SCH ×4 (01:35→19:29)
[2019-10-22] MEDS: methylPREDNISolone INJ 125 MG/2 ML VIAL (J2930) IV SCH (03:46)
[2019-10-22] MEDS: SLF 3 ML SYR IV SCH ×3 (03:47→20:41)
[2019-10-22] MEDS: METOPROLOL TART 12.5 MG PER 1/2 TAB PO SCH (04:16)
[2019-10-22] MEDS: **hydrALAZINE** 10 MG TAB PO PRN ×2 (04:18→16:40)
[2019-10-22] MEDS: ADVAIR HFA 230/21MCG INHALER INH SCH ×2 (07:36→19:29)
[2019-10-22] MEDS: TIOTROPIUM INHALER/CAPSULE (SPIRIVA) INH SCH (07:37)
[2019-10-22] MEDS: ASPIRIN 81 MG ENTERIC TAB PO SCH (08:36)
[2019-10-22] MEDS: FINASTERIDE 5 MG TAB PO SCH (08:36)
[2019-10-22] MEDS: MIRALAX *UNIT DOSE* 17GM PACKET PO SCH (08:36)
[2019-10-22] MEDS: ENOXAPARIN 40MG/0.4ML SYRINGE (J1650 PER 10MG) SC SCH (08:36)
[2019-10-22] MEDS: predniSONE 10 MG TAB PO SCH (08:37)
[2019-10-22] MEDS: BENAZEPRIL 20 MG TAB PO SCH ×2 (08:39→20:41)
[2019-10-22] MEDS: amLODIPine 10 MG TAB PO SCH (08:39)
[2019-10-22] MEDS: PANTOPRAZOLE 40MG TAB (PROTONIX) PO SCH (08:40)
[2019-10-22] MEDS: **hydrALAZINE** 10 MG TAB PO SCH ×2 (08:40→20:41)
[2019-10-22] MEDS: FUROSEMIDE 40 MG TAB PO SCH (08:40)
[2019-10-22] MEDS: METOPROLOL TART 25 MG TABLET PO SCH ×2 (11:07→16:40)
--- NOTE | 2019-10-22 11:20 | IPNPDOC ---
Subjective Date Seen The patient was seen on 10/22/19. Subjective Chief Complaint/HPI Patient feeling better but is still has residual wheezing and he is feeling tired today General: Denies: ROS Unobtainable, Chills, Night Sweats, Fatigue, Malaise, Normal Appetite, Other Symptoms Constitutional: Denies: Chills, Fever, Malaise, Night Sweats, Weakness, Fatigue, Weight Loss, Lethargy, Other Pulmonary: Reports: Dyspnea Cardiovascular: Denies: Chest Pain, Palpitations, Orthopnea, Paroxysmal Noc. Dyspnea, Edema, Lt Headedness, Other Symptoms Gastrointestinal: Denies: Nausea, Vomiting, Abdominal Pain, Diarrhea, Constipation, Melena, Hematochezia, Other Symptoms Genitourinary: Denies: Dysuria, Frequency, Incontinence, Hematuria, Retention, Other Symptoms Musculoskeletal: Denies: Neck Pain, Back Pain, Shoulder Pain, Arm Pain, Hand Pain, Leg Pain, Foot Pain, Joint Pain, Muscle Pain, Spasms, Other Symptoms Neurological: Denies: Weakness, Numbness, Incoordination, Change in speech, Confusion, Seizures, Other Symptoms Objective Physical Examination Eye Exam: Positive: PERRLA, Conjunctiva & lids normal ENT Exam: Positive: Atraumatic Neck Exam: Positive: Supple Chest Exam: Positive: Wheezing (bilateral expiratory wheezing audible) Heart Exam: Positive: Rate Normal, Normal S1, Normal S2 Abdomen Exam: Positive: Normal bowel sounds, Soft Extremity Exam: Positive: Normal pulses Skin Exam: Positive: Nl turgor and temperature Assessment /Plan Problems (1) COPD exacerbation Status: Acute Problem Text: pt was admitted with acute exacerbation of COPD Patient is slightly improved from yesterday, but is still there is a bilateral residue wheezing on examination Since clinically he is improving. I will change his IV steroids to by mouth prednisone 30 mg by mouth daily and monitor him 24 hours on by mouth steroids and nebulizer meds Continue DuoNeb, but change it to every 4 hours and Proventil every hour when necessary Patient does have a home oxygen and hopefully if he remains stable overnight. He can be discharged home tomorrow on by mouth prednisone, nebulizer treatments and home oxygen Incentive spirometry ordered Patient was strongly advised to ambulate around the floor to develop endurance and increased lung capacity (2) HTN (hypertension) Status: Chronic Problem Text: Uncontrolled hypertension Denied any headache, chest pain, flank pain or back pain His amlodipine was increased to 10 mg by mouth daily along with hydralazine 20 mg twice a day pts BP was found still elevated in the systolic 170s. He was started on metoprolol 12.5 mg by mouth twice a day, but will increase it to 25 mg by mouth twice a day It seems he isn't responding to metoprolol and is a repeat blood pressure check his systolic is in 140s Once patient is discharged. Also please discharge him home on all his home antihypertensive meds and metoprolol (3) Lung mass Status: Chronic Problem Text: Patient has a history of right upper hilar lung mass and follows up with Dr. pringle Repeat CAT scan shows: Slight increase in size of right upper lobe mass/consolidation. No change in right paratracheal adenopathy. No evidence of pulmonary embolism. Tiny right pleural effusion. Once his discharge. He can follow with Dr. pringle, and an outpatient for further management (4) Renal mass Status: Acute Problem Text: Patient is not aware about the renal mass On the CTA of chest. It also showed: There is a mass or complex cyst in the upper pole of the left kidney 2.3 cm in diameter. Patient advised to follow with urology as outpatient once his discharge from the hospital We will provide him with the name and phone number of the urologists and make an appointment as well (5) Hyponatremia Status: Acute Problem Text: Multi-factorial, most likely secondary to exacerbation of COPD, SIADH and or possibly secondary to lung mass and renal mass Patient is on normal saline infusion and we'll continue monitoring his sodium level (6) Dyslipidemia Status: Chronic Problem Text: Continue home meds (7) GERD (gastroesophageal reflux disease) Status: Chronic Problem Text: Continue home meds (8) Chronic respiratory failure with hypoxia Status: Chronic Problem Text: Patient has a history of for chronic hypoxic respiratory failure and presently on home oxygen by 2 L nasal cannula Patient also receiving oxygen supplementation to keep his pulse ox more than 88% inpatient Further treatment as per COPD, please see above Plan/VTE VTE Prophylaxis Ordered?: Yes VS, I&O, 24H, Fishbone Vital Signs/I&O Vital Signs Date Time Temp Pulse Resp B/P (MAP) Pulse Ox O2 Delivery O2 Flow Rate FiO2 10/22/19 11:09 66 144/70 (94) 10/22/19 08:00 2.0 10/22/19 08:00 97.3 18 96 Nasal Cannula I&O- Last 24 Hours up to 6 AM 10/22/19 05:59 Intake Total 720 ml Output Total 0 ml Balance 720 ml Laboratory Data Microbiology Microbiology 10/17/19 Respiratory Virus Panel (PCR) (JULIAN) - Final, Complete ATTILA TRAYLOR MD Oct 22, 2019 11:20
[2019-10-22] MEDS: SIMVASTATIN 20 MG TAB PO SCH (20:41)
[2019-10-22] MEDS: FLUoxetine 20 MG CAP PO SCH (20:41)
[2019-10-23] VITALS (8 sets, daily range): BP systolic 138–174; BP diastolic 6–89
[2019-10-23] MEDS: METOPROLOL TART 25 MG TABLET PO SCH ×2 (00:29→05:36)
[2019-10-23] MEDS: IPRATROPIUM 0.5MG/ALBUTEROL 2.5MG INH SOL UD 3ML (DUONEB) NEB SCH ×4 (00:33→17:37)
[2019-10-23] MEDS: **hydrALAZINE** 10 MG TAB PO PRN (02:00)
[2019-10-23] MEDS: SLF 3 ML SYR IV SCH ×3 (05:36→22:11)
[2019-10-23] MEDS: TIOTROPIUM INHALER/CAPSULE (SPIRIVA) INH SCH (07:12)
[2019-10-23] MEDS: ADVAIR HFA 230/21MCG INHALER INH SCH ×2 (07:12→17:36)
[2019-10-23 08:12] LABS: BASO % 0.2 % (0.0-1.0); EOS # 0.1 10^3/uL (0.0-0.5); EOS % 0.5 % (0.0-3.0); HEMATOCRIT 39.1 % (42.0-52.0); HEMOGLOBIN 12.7 g/dl (13.5-17.5); LYMPH # 1.8 10^3/uL (1.5-5.0); LYMPH % 9.7 % (24.0-44.0); MEAN CORPUSCULAR HEMOGLOBIN 27.5 pg (27.0-33.0); MEAN CORPUSCULAR HGB CONC 32.5 g/dl (32.0-36.5); MEAN CORPUSCULAR VOLUME 84.6 fl (80.0-96.0); MONO # 2.1 10^3/uL (0.0-0.8); MONO % 11.6 % (0.0-5.0); NEUTROPHILS % 76.8 % (36.0-66.0); PLATELET COUNT, AUTOMATED 453 10^3/uL (150-450); RED BLOOD COUNT 4.62 10^6/uL (4.30-6.10); WHITE BLOOD COUNT 18.2 10^3/uL (4.0-10.0)
[2019-10-23 08:37] LABS: BLOOD UREA NITROGEN 25 MG/DL (7-18); CALCIUM LEVEL 8.4 MG/DL (8.8-10.2); CARBON DIOXIDE LEVEL 34 MEQ/L (21-32); CHLORIDE LEVEL 96 MEQ/L (98-107); CREATININE FOR GFR 0.88 MG/DL (0.70-1.30); GLOMERULAR FILTRATION RATE > 60.0 (>42); GLUCOSE, FASTING 79 MG/DL (70-100); POTASSIUM SERUM 4.4 MEQ/L (3.5-5.1); SODIUM LEVEL 134 MEQ/L (136-145)
[2019-10-23] MEDS: MIRALAX *UNIT DOSE* 17GM PACKET PO SCH (08:42)
[2019-10-23] MEDS: PANTOPRAZOLE 40MG TAB (PROTONIX) PO SCH (08:44)
[2019-10-23] MEDS: ENOXAPARIN 40MG/0.4ML SYRINGE (J1650 PER 10MG) SC SCH (08:44)
[2019-10-23] MEDS: predniSONE 10 MG TAB PO SCH (08:44)
[2019-10-23] MEDS: **hydrALAZINE** 10 MG TAB PO SCH ×2 (08:45→22:11)
[2019-10-23] MEDS: amLODIPine 10 MG TAB PO SCH (08:46)
[2019-10-23] MEDS: BENAZEPRIL 20 MG TAB PO SCH ×2 (08:46→22:10)
[2019-10-23] MEDS: FUROSEMIDE 40 MG TAB PO SCH (08:46)
[2019-10-23] MEDS: FINASTERIDE 5 MG TAB PO SCH (08:47)
[2019-10-23] MEDS: ASPIRIN 81 MG ENTERIC TAB PO SCH (08:47)
[2019-10-23] MEDS ORDERED: lisinopriL 20 MG TAB PO SCH (09:00)
--- NOTE | 2019-10-23 15:30 | IPNPDOC ---
Text Note Date of Service The patient was seen on 10/23/19. NOTE Subjective: Says Sob is a little better. No fever or chills, some cough present. BP well controlled today. Physical Exam: Vitals: As below General: Alert oriented sitting up in bed, in no discomfort. Eye Exam: Positive: PERRLA, Conjunctiva & lids normal ENT Exam: Positive: Atraumatic Neck Exam: Positive: Supple, thick neck. Chest Exam: Bilateral diminished breath sounds. No wheezing or ronchi heard. Heart Exam: Positive: Rate Normal, Normal S1, Normal S2, no rub, murmur or gallop. Abdomen Exam: Positive: Normal bowel sounds, Soft, nontender, obese. Extremity Exam: Positive: Normal pulses, clubbing present, 1+ bipedal edema. Skin Exam: Positive: Nl turgor and temperature Assessment /Plan: This is a 78-year-old male who was noted to have high blood pressure by his occupational therapist called his PCPs office. The RN at his PCP instructed him to come to the hospital for evaluation. Hypertensive urgency Echo with hypertensive heart disease and possibly mild diastolic dysfunction. better controlled now. will not give metoprolol due to his advanced lung disease and exacerbations will continue with amlodipine, ACEI, hydralazine and he is also on clonidine patch . COPD exacerbation improving. continue inhalers advair, spiriva, albuterol, prednisone. Chronic respiratory failure with hypoxia continue oxygen supplementation, Now at home dose. Leucocytosis probably steroid induced. CELIA/ Obesity did not use the CPAP last night. does not use it everyday. Right Lung mass Patient has a history of right upper hilar lung mass and follows up with Dr. pringle Repeat CAT scan shows: Slight increase in size of right upper lobe mass/consolidation. No change in right paratracheal adenopathy. No evidence of pulmonary embolism. Tiny right pleural effusion. Once his discharge. He can follow with Dr. pringle, and an outpatient for further management Renal mass Vs Complex cyst. On the CTA of chest. There is a mass or complex cyst in the upper pole of the left kidney 2.3 cm in diameter. 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 Anxiety. Depression with Prior suicide attempt. Seasonal allergies. Constipation. VS,Fishbone, I+O VS, Fishbone, I+O Laboratory Tests 10/23/19 07:50 Vital Signs Date Time Temp Pulse Resp B/P (MAP) Pulse Ox O2 Delivery O2 Flow Rate FiO2 10/23/19 12:00 2.0 10/23/19 12:00 97.5 78 16 148/60 (89) 96 10/23/19 08:00 Nasal Cannula I&O- Last 24 Hours up to 6 AM 10/23/19 05:59 Intake Total 1520 ml Balance 1520 ml WILVER PATEL MD Oct 23, 2019 15:30
[2019-10-23] MEDS ORDERED: FUROSEMIDE 40MG/4ML VIAL (J1940) IV ONE (15:45)
[2019-10-23] MEDS: ALBUTEROL SULFATE 2.5 MG/0.5 ML INH NEB SOLN NEB PRN (15:59)
[2019-10-23] MEDS: FLUoxetine 20 MG CAP PO SCH (22:10)
[2019-10-23] MEDS: SIMVASTATIN 20 MG TAB PO SCH (22:10)
[2019-10-24] MEDS: IPRATROPIUM 0.5MG/ALBUTEROL 2.5MG INH SOL UD 3ML (DUONEB) NEB SCH ×2 (01:28→08:00)
[2019-10-24 02:00] VITALS: BP 141/66
[2019-10-24 06:00] VITALS: BP 147/94
[2019-10-24 06:11] LABS: BASO # 0.1 10^3/uL (0.0-0.2); BASO % 0.3 % (0.0-1.0); EOS # 0.2 10^3/uL (0.0-0.5); EOS % 1.4 % (0.0-3.0); HEMATOCRIT 40.6 % (42.0-52.0); HEMOGLOBIN 13.1 g/dl (13.5-17.5); LYMPH # 1.9 10^3/uL (1.5-5.0); LYMPH % 12.6 % (24.0-44.0); MEAN CORPUSCULAR HEMOGLOBIN 27.2 pg (27.0-33.0); MEAN CORPUSCULAR HGB CONC 32.3 g/dl (32.0-36.5); MEAN CORPUSCULAR VOLUME 84.4 fl (80.0-96.0); MONO # 1.6 10^3/uL (0.0-0.8); MONO % 10.6 % (0.0-5.0); PLATELET COUNT, AUTOMATED 440 10^3/uL (150-450); RED BLOOD COUNT 4.81 10^6/uL (4.30-6.10); WHITE BLOOD COUNT 15.1 10^3/uL (4.0-10.0)
[2019-10-24] MEDS: SLF 3 ML SYR IV SCH (06:13)
[2019-10-24 06:37] LABS: BLOOD UREA NITROGEN 25 MG/DL (7-18); CALCIUM LEVEL 8.7 MG/DL (8.8-10.2); CARBON DIOXIDE LEVEL 35 MEQ/L (21-32); CHLORIDE LEVEL 94 MEQ/L (98-107); CREATININE FOR GFR 0.98 MG/DL (0.70-1.30); GLOMERULAR FILTRATION RATE > 60.0 (>42); GLUCOSE, FASTING 95 MG/DL (70-100); POTASSIUM SERUM 4.3 MEQ/L (3.5-5.1); SODIUM LEVEL 132 MEQ/L (136-145)
[2019-10-24] MEDS: TIOTROPIUM INHALER/CAPSULE (SPIRIVA) INH SCH (08:02)
[2019-10-24] MEDS: ADVAIR HFA 230/21MCG INHALER INH SCH (08:02)
[2019-10-24 08:29] LABS: ABG BASE EXCESS 4.9 (-2.0-2.0); ABG HCO3 29.7 MEQ/L (22.0-26.0); ABG PARTIAL PRESSURE CO2 44.5 mmHg (35.0-45.0); ABG PARTIAL PRESSURE O2 97.1 mmHg (75.0-100.0); ABG STANDARD HCO3 28.8 MEQ/L (22.0-26.0); ABG pH (ARTERIAL) 7.442 UNITS (7.350-7.450)
[2019-10-24] MEDS: MIRALAX *UNIT DOSE* 17GM PACKET PO SCH (09:00)
[2019-10-24] MEDS: ASPIRIN 81 MG ENTERIC TAB PO SCH (09:26)
[2019-10-24] MEDS: BENAZEPRIL 20 MG TAB PO SCH (09:26)
[2019-10-24] MEDS: FUROSEMIDE 40 MG TAB PO SCH (09:27)
[2019-10-24] MEDS: **hydrALAZINE** 10 MG TAB PO SCH (09:27)
[2019-10-24] MEDS: predniSONE 10 MG TAB PO SCH (09:27)
[2019-10-24] MEDS: PANTOPRAZOLE 40MG TAB (PROTONIX) PO SCH (09:27)
[2019-10-24 09:28] VITALS: BP 147/94
[2019-10-24] MEDS: FINASTERIDE 5 MG TAB PO SCH (09:28)
[2019-10-24] MEDS: amLODIPine 10 MG TAB PO SCH (09:28)
[2019-10-24] MEDS: ENOXAPARIN 40MG/0.4ML SYRINGE (J1650 PER 10MG) SC SCH (09:28)
[2019-10-24] MEDS ORDERED: AMLO10TA5 PO (10:17)
[2019-10-24] MEDS ORDERED: CLON0.1D3 TOP (10:17)
[2019-10-24] MEDS ORDERED: HYDR10TAB PO (10:17)
[2019-10-24] MEDS ORDERED: PRED10TA2 PO (10:17)
[2019-10-24] MEDS ORDERED: BENA20TA PO (12:08)
--- NOTE | 2019-10-25 18:03 | DS.PDOC ---
Discharge Summary General Date of Admission Oct 17, 2019 at 13:46 Date of Discharge 10/24/19 Discharge Summary PROCEDURES PERFORMED DURING STAY: [None]. DISCHARGE DIAGNOSES: Hypertensive Urgency COPD exacerbation Steroid induced Leucocytosis Renal mass vs complex cyst. 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 OBESITY GERD. Osteoarthritis. Anxiety. Depression with Prior suicide attempt. Seasonal allergies. Constipation. COMPLICATIONS/CHIEF COMPLAINT: Copd Exacerbation,Hypertensive Urgency. HISTORY OF PRESENT ILLNESS: See history and physical HOSPITAL COURSE: This is a 78-year-old male who was noted to have high blood pressure by his occupational therapist called his PCPs office. The RN at his PCP instructed him to come to the hospital for evaluation. Hypertensive urgency Echo with hypertensive heart disease and possibly mild diastolic dysfunction. better controlled now. will not give metoprolol due to his advanced lung disease and exacerbations will continue with amlodipine, ACEI, hydralazine and he is also now on clonidine patch . COPD exacerbation improving. continue inhalers advair, spiriva, albuterol, prednisone taper Chronic respiratory failure with hypoxia continue oxygen supplementation, Now at home dose. Leucocytosis probably steroid induced. CELIA/ Obesity did not use the CPAP last night. does not use it everyday. Right Lung mass Patient has a history of right upper hilar lung mass and follows up with Dr. pringle Repeat CAT scan shows: Slight increase in size of right upper lobe mass/consolidation. No change in right paratracheal adenopathy. No evidence of pulmonary embolism. Tiny right pleural effusion. Once his discharge. He can follow with Dr. pringle, and an outpatient for further management Renal mass Vs Complex cyst. On the CTA of chest. There is a mass or complex cyst in the upper pole of the left kidney 2.3 cm in diameter. 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 Anxiety. Depression with Prior suicide attempt. Seasonal allergies. Constipation. DISCHARGE MEDICATIONS: Please see below. ALLERGIES: Please see below. PHYSICAL EXAMINATION ON DISCHARGE: VITAL SIGNS: Please see below. General: Alert oriented sitting up in bed, in no discomfort. Eye Exam: Positive: PERRLA, Conjunctiva & lids normal ENT Exam: Positive: Atraumatic Neck Exam: Positive: Supple, thick neck. Chest Exam: Bilateral diminished breath sounds. Bilateral wheezing and ronchi on deep expiration. Heart Exam: Positive: Rate Normal, Normal S1, Normal S2, no rub, murmur or gallop. Abdomen Exam: Positive: Normal bowel sounds, Soft, nontender, obese. Extremity Exam: Positive: Normal pulses, clubbing present, 1+ bipedal edema. Skin Exam: Positive: Nl turgor and temperature LABORATORY DATA: Please see below. ACTIVITY: [As tolerated]. DIET: As tolerated DISPOSITION: Home Health Service. DISCHARGE INSTRUCTIONS: PMD in 1 week. ITEMS TO FOLLOWUP ON ON OUTPATIENT: Referral to Urology for evaluation of renal mass vs complex cyst. DISCHARGE CONDITION: [Stable]. TIME SPENT ON DISCHARGE: 35 minutes. Vital Signs/I&Os Vital Signs Date Time Temp Pulse Resp B/P (MAP) Pulse Ox O2 Delivery O2 Flow Rate FiO2 10/24/19 09:28 19 147/94 10/24/19 08:45 2.0 10/24/19 06:00 98.9 96 97 Room Air I&O- Last 24 Hours up to 6 AM 10/25/19 07:00 Intake Total 0 ml Output Total 0 ml Balance 0 ml Microbiology Microbiology 10/17/19 Respiratory Virus Panel (PCR) (JULIAN) - Final, Complete Discharge Medications Scheduled Albuterol Sulf (Albuterol Sulfate) 2.5 Mg/3 Ml Nebu, 2.5 MG INH QID for SHORTNESS OF BREATH, (Reported) Amlodipine Besylate (Amlodipine Besylate) 10 Mg Tablet, 10 MG PO DAILY Aspirin (Aspirin EC) 81 Mg Tab, 81 MG PO DAILY, (Reported) Benazepril Hcl (Benazepril HCl) 20 Mg Tab, 20 MG PO BID Clonidine (Clonidine) 0.1 Mg Patch.tdwk, 1 EA TOP Q7D@09 Finasteride (Finasteride) 5 Mg Tablet, 5 MG PO DAILY, (Reported) Fluoxetine Hcl (Fluoxetine HCl) 20 Mg Cap, 20 MG PO QHS, (Reported) Furosemide (Furosemide) 20 Mg Tablet, 40 MG PO DAILY, (Reported) Hydralazine HCl (Hydralazine HCl) 10 Mg Tablet, 20 MG PO BID Pantoprazole Sodium (Pantoprazole Sodium) 40 Mg Tab, 40 MG PO DAILY, (Reported) Prednisone (Prednisone) 5 Mg Tablet, 5 MG PO QPM, (Reported) Prednisone (Prednisone) 10 Mg Tablet, 10 MG PO TAPER 3 tabs daily x 1 days, then 2 tabs daily x 3 days, then 1 tab daily x 3 days and then 5 mg daily to continue Salmeterol/Fluticasone (Advair 500-50 Diskus) 28 Puff/Inhaler Aerp, 1 PUFF INH BID, (Reported) Simvastatin (Simvastatin) 20 Mg Tab, 20 MG PO QHS, (Reported) Tiotropium [place] (Spiriva) 18 Mcg Cap, 18 MCG INH DAILY, (Reported) Scheduled PRN Albuterol Sulfate (Proair Hfa) 108 Mcg/Act Aer, 1 PUFF IN Q4H PRN for SHORTNESS OF BREATH, (Reported) Hydroxyzine HCl (Hydroxyzine HCl) 10 Mg Tab, 10 MG PO TID PRN for ANXIETY, (R eported) Allergies Coded Allergies: Sulfa (Sulfonamide Antibiotics) (Verified Allergy, Intermediate, rash, 10/17/19) WILVER PATEL MD Oct 25, 2019 18:03
== END 2019-10-24 13:00 | disposition home health service (06) | DRG 191 ==
LOC: M ED 10:44 → EDBD 10:44 → M ED INP 13:46 → ENRESERV 14:48 → M PCU 15:11 → M MS5PR 10-23 18:45
PROVIDERS: ADMIT Internal Medicine; ATTEND Internal Medicine Nephrology
DX: J44.1 Chronic obstructive pulmonary disease with (acute) exacerbation (principal); E87.1 Hypo-osmolality and hyponatremia; J96.11 Chronic respiratory failure with hypoxia; I16.0 Hypertensive urgency; R91.8 Other nonspecific abnormal finding of lung field; N28.89 Other specified disorders of kidney and ureter; G47.33 Obstructive sleep apnea (adult) (pediatric); E66.9 Obesity, unspecified; K21.9 Gastro-esophageal reflux disease without esophagitis; N40.0 Benign prostatic hyperplasia without lower urinary tract symptoms; M19.90 Unspecified osteoarthritis, unspecified site; F41.9 Anxiety disorder, unspecified; F32.9 Major depressive disorder, single episode, unspecified; E78.5 Hyperlipidemia, unspecified; K59.00 Constipation, unspecified; D72.829 Elevated white blood cell count, unspecified; Z79.899 Other long term (current) drug therapy; Z79.82 Long term (current) use of aspirin; Z88.2 Allergy status to sulfonamides

== ENCOUNTER 2020-11-23 12:14 | Emergency (ER) | payer MEDICARE ==
[~2020-11-23] VITALS: Ht 167.6 cm; Wt 96.4 kg
[~2020-11-23 12:14] MED LIST changes: -AMLO10TA5 PO; +AMLO1TAB24 PO; +AMLO1TAB25 PO; -AMLO5TAB6 PO; +BACTDSTA PO; +CLON0.1D3 TOP; +DOXY100C PO; -DOXY100C37 PO; +DOXY1CAP62 PO; +PANT40TA29 PO; -PANT40TA3 PO; -SULF1TAB93 PO
[2020-11-23 14:00] LABS: BASO % 0.3 % (0.0-1.0); EOS # 0.2 10^3/uL (0.0-0.5); EOS % 1.5 % (0.0-3.0); HEMOGLOBIN 11.2 g/dl (13.5-17.5); LYMPH # 0.5 10^3/uL (1.5-5.0); LYMPH % 3.3 % (24.0-44.0); MEAN CORPUSCULAR HEMOGLOBIN 24.2 pg (27.0-33.0); MEAN CORPUSCULAR HGB CONC 30.3 g/dl (32.0-36.5); MEAN CORPUSCULAR VOLUME 79.9 fl (80.0-96.0); MONO # 0.5 10^3/uL (0.0-0.8); MONO % 3.4 % (2.0-8.0); NEUTROPHILS # 13.6 10^3/uL (1.5-8.5); NEUTROPHILS % 90.8 % (36.0-66.0); PLATELET COUNT, AUTOMATED 428 10^3/uL (150-450); RED BLOOD COUNT 4.63 10^6/uL (4.30-6.10)
--- NOTE | 2020-11-23 14:19 | REP ---
INDICATION: DYSPNEA/COUGH. COMPARISON: AP 10/19/2019, CT 10/17/2019. TECHNIQUE: AP portable upright FINDINGS: The large right upper lobe mass which is hilar/perihilar extending laterally and superiorly in the upper lobe on previous studies, has further increased in size extending to the lateral chest wall in the mid and upper lung zone. Vertical diameter is also increased and measures at least 10.4 Cm transverse by 8.5 cm vertically. Densely calcified granuloma in the left lung base as seen on previous CTs CP angle sharply defined without effusion. I see no definite acute infiltrate in the left lung. Could not exclude component of the postobstructive atelectasis or infiltrate peripherally on the right. Heart size not grossly enlarged allowing for portable technique and unchanged compared to previous study. The aorta is mildly tortuous but without aneurysm and is unchanged. I see no vascular redistribution or pulmonary edema. The bones appear demineralized. Some degenerative changes spine and shoulders. IMPRESSION: 1. Enlarging right upper lobe mass extending from the hilum to the periphery now at least 10.4 cm transverse by 8.5 cm vertical diameter, visually increased compared to the previous portable chest, 10/26. 2. No pleural effusion. No definite acute infiltrates with the left lung showing old granulomatous calcification peripherally in the lower lobe lung zone. 3. No cardiomegaly or edema. 4. Bones demineralized with some degenerative changes spine and shoulders. <Electronically signed by Baldemar Fritz > 11/23/20 [id number]
[2020-11-23 14:26] LABS: ALT/SGPT 20 U/L (12-78); BILIRUBIN,DIRECT 0.1 MG/DL (0.0-0.2); BILIRUBIN,TOTAL 0.2 MG/DL (0.2-1.0); BLOOD UREA NITROGEN 11 MG/DL (7-18); CALCIUM LEVEL 8.6 MG/DL (8.8-10.2); CARBON DIOXIDE LEVEL 29 MEQ/L (21-32); CHLORIDE LEVEL 102 MEQ/L (98-107); CREATININE FOR GFR 0.82 MG/DL (0.70-1.30); GLOMERULAR FILTRATION RATE > 60.0 (>35); GLUCOSE, FASTING 98 MG/DL (70-100); POTASSIUM SERUM 4.6 MEQ/L (3.5-5.1); SODIUM LEVEL 136 MEQ/L (136-145); TOTAL PROTEIN 7.1 GM/DL (6.4-8.2)
[2020-11-23] MEDS ORDERED: PRED20TA PO (14:44)
[2020-11-23] MEDS ORDERED: ZITHTAB2 PO (14:44)
[2020-11-23 15:23] VITALS: BP 158/93
--- NOTE | 2020-11-23 22:15 | ECGEPIP ---
[facility] - ED Test Date: 2020-11-23 Pat Name: DAYANNA BROWN Department: Room: - Gender: Male Epidemiology Investigator: MACK : [id number] Requested By: OSVALDO Florez Order Number: [id number] Reading MD: Tanya Restrepo Measurements Intervals [place] Rate: 95 P: 67 [place]: 154 QRS: 11 QRSD: 96 T: 76 QT: 358 QTc: 449 Interpretive Statements Sinus rhythm with premature atrial complexes Nonspecific ST and T wave abnormality increased ectopy 10/17/19 Electronically Signed on 11-23-2020 22:15:23 EDT by Tanya Restrepo
== END 2020-11-23 17:16 | disposition home or self-care (01) ==
LOC: EDBD 12:14 → M ED 12:14
DX: J44.1 Chronic obstructive pulmonary disease with (acute) exacerbation (principal); R91.1 Solitary pulmonary nodule; I11.0 Hypertensive heart disease with heart failure; K21.9 Gastro-esophageal reflux disease without esophagitis; E78.5 Hyperlipidemia, unspecified; Z87.891 Personal history of nicotine dependence; Z79.51 Long term (current) use of inhaled steroids; Z88.1 Allergy status to other antibiotic agents; Z88.2 Allergy status to sulfonamides

== ENCOUNTER 2021-04-19 04:00 | Inpatient (IN) | payer MEDICARE ==
[~2021-04-19] VITALS: Ht 175.3 cm; Wt 76.5 kg
[~2021-04-19 04:00] MED LIST changes: +BENA-8 PO; -BENA20TA8 PO; +DOXY-443 PO; -DOXY100C PO; +DOXY100C3 PO; -DOXY1CAP62 PO; +FLUO-96 PO; -FLUO20CA20 PO; +PRED20TA PO; -PROAAER10 IN; +ZITHTAB2 PO
[2021-04-19] MEDS ORDERED: LEVALBUTEROL 1.25 MG/0.5 ML CONCENTRATE NEB As Ordered ONE (04:07)
[2021-04-19] MEDS ORDERED: LEVALBUTEROL 1.25 MG/0.5 ML CONCENTRATE NEB NEB ONE ×2 (04:10→04:15)
[2021-04-19 04:26] LABS: BASO % 0.2 % (0.0-1.0); EOS # 0.5 10^3/uL (0.0-0.5); EOS % 4.3 % (0.0-3.0); HEMATOCRIT 44.3 % (42.0-52.0); HEMOGLOBIN 13.2 g/dl (13.5-17.5); LYMPH # 1.3 10^3/uL (1.5-5.0); LYMPH % 12.2 % (24.0-44.0); MEAN CORPUSCULAR HEMOGLOBIN 23.7 pg (27.0-33.0); MEAN CORPUSCULAR HGB CONC 29.8 g/dl (32.0-36.5); MEAN CORPUSCULAR VOLUME 79.7 fl (80.0-96.0); MONO # 0.4 10^3/uL (0.0-0.8); MONO % 3.6 % (2.0-8.0); NEUTROPHILS # 8.2 10^3/uL (1.5-8.5); NEUTROPHILS % 78.6 % (36.0-66.0); PLATELET COUNT, AUTOMATED 434 10^3/uL (150-450); RED BLOOD COUNT 5.56 10^6/uL (4.30-6.10); WHITE BLOOD COUNT 10.5 10^3/uL (4.0-10.0)
[2021-04-19] MEDS ORDERED: MAG SULF 1GM/100ML (MAG RUN) 1 GM in IV 1 EA IV ONE (04:35)
[2021-04-19 04:52] LABS: ALBUMIN 2.2 GM/DL (3.2-5.2); BILIRUBIN,DIRECT 0.2 MG/DL (0.0-0.2); BILIRUBIN,TOTAL 0.4 MG/DL (0.2-1.0); CALCIUM LEVEL 8.1 MG/DL (8.8-10.2); CREATININE FOR GFR 1.5 MG/DL (0.70-1.30); GLOMERULAR FILTRATION RATE 47.8 (>35); POTASSIUM SERUM 5.4 MEQ/L (3.5-5.1); TOTAL PROTEIN 6.6 GM/DL (6.4-8.2)
[2021-04-19 04:55] LABS: CK-MB VALUE MASS 5.5 NG/ML (<3.6); MB/CK RELATIVE INDEX 5.5 (< OR =4)
[2021-04-19 05:02] LABS: ABG BASE EXCESS -2.2 (-2.0-2.0); ABG O2 SATURATION 84.2 % (95.0-99.0); ABG PARTIAL PRESSURE CO2 46.4 mmHg (35.0-45.0); ABG PARTIAL PRESSURE O2 55.1 mmHg (75.0-100.0); ABG STANDARD HCO3 22.4 MEQ/L (22.0-26.0); ABG TOTAL CO2 25.4 MEQ/L (23.0-31.0); ABG pH (ARTERIAL) 7.331 UNITS (7.350-7.450)
[2021-04-19 05:02] LABS: RSV AMPLIFICATION NEGATIVE (NEGATIVE)
[2021-04-19 05:30] LABS: ABG BASE EXCESS -0.6 (-2.0-2.0); ABG HCO3 24.5 MEQ/L (22.0-26.0); ABG O2 SATURATION 97.5 % (95.0-99.0); ABG PARTIAL PRESSURE CO2 41.9 mmHg (35.0-45.0); ABG PARTIAL PRESSURE O2 108.2 mmHg (75.0-100.0); ABG TOTAL CO2 25.7 MEQ/L (23.0-31.0); ABG pH (ARTERIAL) 7.384 UNITS (7.350-7.450)
[2021-04-19] MEDS ORDERED: NS 1,000 ML IV ONE (05:45)
[2021-04-19] MEDS ORDERED: cefTRIAXone SOD 1 GM in D5W MINI-BAG PLUS 50 ML IV SCH (06:00)
[2021-04-19 06:08] LABS: CK-MB VALUE MASS 9.4 NG/ML (<3.6); MB/CK RELATIVE INDEX 6.53 (< OR =4)
[2021-04-19] MEDS ORDERED: PRED10TA2 PO (06:26)
[2021-04-19] MEDS ORDERED: LEVO500T4 PO (06:26)
[2021-04-19] MEDS ORDERED: BENA-8 PO (06:28)
[2021-04-19] MEDS ORDERED: AZITHROMYCIN INJ 500 MG, VIAL MATE ADAPTER 1 EACH in NS 250 ML IV ONE (06:30)
[2021-04-19] MEDS ORDERED: cefTRIAXone SOD 1 GM in D5W MINI-BAG PLUS 50 ML IV ONE (06:30)
[2021-04-19] MEDS ORDERED: AMLO2.5T3 PO (06:31)
[2021-04-19] MEDS ORDERED: HYDR-3910 PO (06:31)
[2021-04-19] MEDS ORDERED: FURO40TA2 PO (06:31)
[2021-04-19] MEDS ORDERED: HOME MED LIST COMPLETE! XX SCH (06:35)
[2021-04-19] MEDS ORDERED: NS 500 ML IV ONE (06:55)
[2021-04-19] MEDS ORDERED: EPINEPHrine INJ 1 MG/ML 1ML AMP IM PRN (07:01)
[2021-04-19] MEDS ORDERED: diphenhydrAMINE 50MG/ML VIAL (J1200) IV PRN (07:01)
[2021-04-19] MEDS ORDERED: methylPREDNISolone 125MG 2ML VIAL IV PRN (07:01)
[2021-04-19] MEDS ORDERED: ALBUTEROL SULFATE 2.5 MG/0.5 ML INH NEB SOLN INH PRN (07:01)
[2021-04-19] MEDS: TIOTROPIUM INHALER/CAPSULE (SPIRIVA) INH SCH (08:00)
[2021-04-19] MEDS: ADVAIR HFA 230/21MCG INHALER INH SCH ×2 (08:00→18:25)
[2021-04-19] MEDS: ALBUTEROL SULFATE 2.5 MG/0.5 ML INH NEB SOLN INH SCH ×4 (08:00→18:25)
[2021-04-19] MEDS ORDERED: AZITHROMYCIN INJ 500 MG, VIAL MATE ADAPTER 1 EACH in NS 250 ML IV SCH (08:00)
[2021-04-19 08:03] LABS: C REACTIVE PROTEIN QUANTITATIV 8.29 MG/DL (0.00-0.30); MAGNESIUM LEVEL 2.6 MG/DL (1.8-2.4)
[2021-04-19] MEDS ORDERED: ENOXAPARIN 40MG/0.4ML SYRINGE (J1650 PER 10MG) SC SCH (09:00)
[2021-04-19] MEDS ORDERED: BARICITINIB 2MG TABLET (OLUMIANT) FOR EUA PO SCH (09:00)
[2021-04-19 09:20] LABS: INR 1.31; PROTHROMBIN TIME 16.7 SECONDS (12.7-14.5)
[2021-04-19 09:21] LABS: FIBRINOGEN 549 MG/DL (268-480); PARTIAL THROMBOPLASTIN TIME 44.9 SECONDS (25.9-37.0)
[2021-04-19] MEDS: dexameTHASONE 4 MG/ML 1ML VIAL (J1100 PER 1MG) IV SCH (09:43)
[2021-04-19 10:57] LABS: D-DIMER QUANT > 4000 ng/ml (<500)
[2021-04-19] MEDS ORDERED: CLOPIDOGREL 300 MG TAB (PLAVIX) PO STA (12:16)
[2021-04-19 12:55] VITALS: BP 148/75
[2021-04-19 13:00] VITALS: O2SAT 97
[2021-04-19 13:41] VITALS: O2SAT 94
[2021-04-19] MEDS ORDERED: REMDESIVIR 200 MG in NS 250 ML IV ONE (14:00)
[2021-04-19] MEDS ORDERED: SODIUM CHLORIDE 0.9% INJ 10 ML SYR IV ONE (15:00)
[2021-04-19 16:00] VITALS: O2SAT 92
[2021-04-19] MEDS ORDERED: NS IV ONE (16:00)
[2021-04-19] MEDS ORDERED: TOCILIZUMAB IV ONE (16:00)
[2021-04-19] MEDS: PANTOPRAZOLE 40MG TAB (PROTONIX) PO SCH (16:27)
[2021-04-19] MEDS: REMDESIVIR 100 MG in NS 250 ML IV SCH (16:27)
[2021-04-19] MEDS: ASPIRIN 81MG ENTERIC TABLET PO SCH (16:27)
[2021-04-19] MEDS: FINASTERIDE 5 MG TAB PO SCH (16:27)
[2021-04-19] MEDS: ENOXAPARIN 100MG/1ML SYRINGE (J1650 PER 10MG) SC SCH (16:28)
[2021-04-19 20:00] VITALS: O2SAT 92
[2021-04-19 20:26] VITALS: BP 119/65
[2021-04-19] MEDS: FLUoxetine 20 MG CAP PO SCH (20:27)
[2021-04-19] MEDS: DOXYCYCLINE HYCLATE 100 MG in D5W MINI-BAG PLUS 100 ML IV SCH (20:27)
[2021-04-19] MEDS ORDERED: SIMVASTATIN 20 MG TAB PO SCH (21:00)
[2021-04-20] VITALS (8 sets, daily range): BP systolic 124–162; BP diastolic 65–102; O2SAT 91–96
[2021-04-20] MEDS: ENOXAPARIN 100MG/1ML SYRINGE (J1650 PER 10MG) SC SCH ×2 (00:59→13:36)
[2021-04-20] MEDS: cefTRIAXone SOD 1 GM in D5W MINI-BAG PLUS 50 ML IV SCH (06:30)
[2021-04-20 06:51] LABS: BASO % 0.2 % (0.0-1.0); EOS % 0.2 % (0.0-3.0); HEMOGLOBIN 11.7 g/dl (13.5-17.5); LYMPH # 0.6 10^3/uL (1.5-5.0); LYMPH % 13.5 % (24.0-44.0); MEAN CORPUSCULAR HEMOGLOBIN 23.6 pg (27.0-33.0); MEAN CORPUSCULAR VOLUME 78.8 fl (80.0-96.0); MONO # 0.3 10^3/uL (0.0-0.8); MONO % 7.9 % (2.0-8.0); NEUTROPHILS # 3.3 10^3/uL (1.5-8.5); NEUTROPHILS % 77.3 % (36.0-66.0); PLATELET COUNT, AUTOMATED 271 10^3/uL (150-450); RED BLOOD COUNT 4.95 10^6/uL (4.30-6.10); WHITE BLOOD COUNT 4.3 10^3/uL (4.0-10.0)
[2021-04-20 07:23] LABS: ALBUMIN 1.9 GM/DL (3.2-5.2); ALT/SGPT 142 U/L (12-78); BILIRUBIN,DIRECT < 0.1 MG/DL (0.0-0.2); BILIRUBIN,TOTAL 0.2 MG/DL (0.2-1.0); BLOOD UREA NITROGEN 28 MG/DL (7-18); CALCIUM LEVEL 8.1 MG/DL (8.8-10.2); CARBON DIOXIDE LEVEL 24 MEQ/L (21-32); CHLORIDE LEVEL 105 MEQ/L (98-107); CHOLESTEROL LEVEL 137 MG/DL (<200); CHOLESTEROL RISK RATIO 3.512 (<5); CREATININE FOR GFR 0.84 MG/DL (0.70-1.30); GLOMERULAR FILTRATION RATE > 60.0 (>35); GLUCOSE, FASTING 90 MG/DL (70-100); HDL CHOLESTEROL 39 MG/DL (>40); LDL CHOLESTEROL 77 MG/DL (<100); MAGNESIUM LEVEL 2.5 MG/DL (1.8-2.4); NON-HDL-C 98 MG/DL; SODIUM LEVEL 136 MEQ/L (136-145); TOTAL PROTEIN 6.2 GM/DL (6.4-8.2); TRIGLYCERIDES LEVEL 107 MG/DL (<150)
[2021-04-20] MEDS: ALBUTEROL SULFATE 2.5 MG/0.5 ML INH NEB SOLN INH SCH ×4 (08:05→20:38)
[2021-04-20] MEDS: TIOTROPIUM INHALER/CAPSULE (SPIRIVA) INH SCH (08:05)
[2021-04-20] MEDS: ADVAIR HFA 230/21MCG INHALER INH SCH ×2 (08:05→20:39)
[2021-04-20] MEDS: ASPIRIN 81MG ENTERIC TABLET PO SCH (09:28)
[2021-04-20] MEDS: FINASTERIDE 5 MG TAB PO SCH (09:28)
[2021-04-20] MEDS: CLOPIDOGREL 75 MG TAB PO SCH (09:28)
[2021-04-20] MEDS: PANTOPRAZOLE 40MG TAB (PROTONIX) PO SCH (09:28)
[2021-04-20] MEDS: ATORVASTATIN 20 MG TAB PO SCH (09:28)
[2021-04-20] MEDS: DOXYCYCLINE HYCLATE 100 MG in D5W MINI-BAG PLUS 100 ML IV SCH ×2 (09:28→20:23)
[2021-04-20] MEDS: dexameTHASONE 4 MG/ML 1ML VIAL (J1100 PER 1MG) IV SCH (09:28)
[2021-04-20] MEDS: REMDESIVIR 100 MG in NS 250 ML IV SCH (13:36)
[2021-04-20] MEDS: SODIUM CHLORIDE 0.9% INJ 10 ML SYR IV SCH (13:36)
[2021-04-20] MEDS: FLUoxetine 20 MG CAP PO SCH (20:23)
[2021-04-20] MEDS: hydrOXYzine 10 MG TAB PO PRN (20:45)
[2021-04-21] VITALS (18 sets, daily range): BP systolic 100–210; BP diastolic 58–110; O2SAT 85–98
[2021-04-21] MEDS: ENOXAPARIN 100MG/1ML SYRINGE (J1650 PER 10MG) SC SCH ×2 (01:06→12:14)
[2021-04-21] MEDS: RAMELTEON 8 MG TAB (ROZEREM) PO PRN (01:37)
[2021-04-21] MEDS ORDERED: IPRATROPIUM 0.5MG/ALBUTEROL 2.5MG INH SOL UD 3ML (DUONEB) NEB PRN (03:35)
[2021-04-21] MEDS ORDERED: methylPREDNISolone 125MG 2ML VIAL IV ONE (03:50)
[2021-04-21] MEDS: ALBUTEROL SULFATE 2.5 MG/0.5 ML INH NEB SOLN INH SCH ×4 (03:55→20:00)
[2021-04-21 04:24] LABS: HEMATOCRIT 42.5 % (42.0-52.0); HEMOGLOBIN 12.8 g/dl (13.5-17.5); MEAN CORPUSCULAR HEMOGLOBIN 23.5 pg (27.0-33.0); MEAN CORPUSCULAR HGB CONC 30.1 g/dl (32.0-36.5); MEAN CORPUSCULAR VOLUME 78.1 fl (80.0-96.0); RED BLOOD COUNT 5.44 10^6/uL (4.30-6.10); WHITE BLOOD COUNT 11.1 10^3/uL (4.0-10.0)
[2021-04-21 04:27] LABS: PLATELET COUNT, AUTOMATED 540 10^3/uL (150-450)
[2021-04-21 04:29] LABS: INR 1.28; PROTHROMBIN TIME 16.4 SECONDS (12.7-14.5)
[2021-04-21 04:30] LABS: PARTIAL THROMBOPLASTIN TIME 55.6 SECONDS (25.9-37.0)
[2021-04-21] MEDS: LEVALBUTEROL 1.25 MG/0.5 ML CONCENTRATE NEB INH PRN ×2 (04:33→05:59)
[2021-04-21] MEDS: hydrOXYzine 10 MG TAB PO PRN (04:49)
[2021-04-21 04:56] LABS: ATYPICAL LYMPH 3 % (0-5); LYMPHOCYTES 13 % (16-44); MONOCYTES 9 % (0-5); NEUTROPHILS 75 % (28-66)
[2021-04-21 04:57] LABS: PLATELET ESTIMATE INCREASED (NORMAL)
[2021-04-21 04:58] LABS: MICROCYTOSIS 1+
[2021-04-21 05:04] LABS: ALBUMIN 2.3 GM/DL (3.2-5.2); ALT/SGPT 252 U/L (12-78); BILIRUBIN,DIRECT 0.1 MG/DL (0.0-0.2); BILIRUBIN,TOTAL 0.3 MG/DL (0.2-1.0); BLOOD UREA NITROGEN 29 MG/DL (7-18); CALCIUM LEVEL 7.9 MG/DL (8.8-10.2); CARBON DIOXIDE LEVEL 23 MEQ/L (21-32); CHLORIDE LEVEL 106 MEQ/L (98-107); CREATININE FOR GFR 1.16 MG/DL (0.70-1.30); FERRITIN 3790 NG/ML (26-388); GLOMERULAR FILTRATION RATE > 60.0 (>35); GLUCOSE, FASTING 155 MG/DL (70-100); LDH LACTATE DEHYDROGENASE 495 U/L (87-241); MAGNESIUM LEVEL 2.5 MG/DL (1.8-2.4); NT-PRO BNP 7433 PG/ML (<450); POTASSIUM SERUM 4.9 MEQ/L (3.5-5.1); SODIUM LEVEL 137 MEQ/L (136-145); TOTAL PROTEIN 6.6 GM/DL (6.4-8.2)
[2021-04-21 05:07] LABS: CK-MB VALUE MASS 4.8 NG/ML (<3.6); MB/CK RELATIVE INDEX 2.58 (< OR =4)
[2021-04-21] MEDS: cefTRIAXone SOD 1 GM in D5W MINI-BAG PLUS 50 ML IV SCH (05:10)
[2021-04-21] MEDS ORDERED: NS 1,000 ML IV ONE (05:15)
[2021-04-21] MEDS: TIOTROPIUM INHALER/CAPSULE (SPIRIVA) INH SCH (08:00)
[2021-04-21] MEDS: ADVAIR HFA 230/21MCG INHALER INH SCH ×2 (08:00→20:00)
[2021-04-21] MEDS ORDERED: FUROSEMIDE 40MG/4ML VIAL (J1940) IV ONE (08:15)
[2021-04-21] MEDS: DOXYCYCLINE HYCLATE 100 MG in D5W MINI-BAG PLUS 100 ML IV SCH ×2 (09:01→20:15)
[2021-04-21] MEDS: dexameTHASONE 4 MG/ML 1ML VIAL (J1100 PER 1MG) IV SCH ×2 (09:02→20:15)
[2021-04-21] MEDS: PANTOPRAZOLE 40MG TAB (PROTONIX) PO SCH ×2 (09:02→20:15)
[2021-04-21] MEDS: FINASTERIDE 5 MG TAB PO SCH (09:02)
[2021-04-21] MEDS: ATORVASTATIN 20 MG TAB PO SCH (09:03)
[2021-04-21] MEDS: ASPIRIN 81MG ENTERIC TABLET PO SCH (09:03)
[2021-04-21] MEDS: CLOPIDOGREL 75 MG TAB PO SCH (09:03)
[2021-04-21] MEDS: BARICITINIB 2MG TABLET (OLUMIANT) FOR EUA PO SCH (12:14)
[2021-04-21] MEDS: REMDESIVIR 100 MG in NS 250 ML IV SCH (14:01)
[2021-04-21] MEDS: SODIUM CHLORIDE 0.9% INJ 10 ML SYR IV SCH (15:10)
[2021-04-21] MEDS ORDERED: FUROSEMIDE 20MG/2ML VIAL (J1940) IV ONE (15:15)
[2021-04-22] VITALS (16 sets, daily range): BP systolic 128–186; BP diastolic 66–116; O2SAT 89–94
[2021-04-22] MEDS: ENOXAPARIN 80MG/0.8ML SYRINGE (J1650 PER 10MG) SC SCH ×2 (00:10→13:45)
[2021-04-22] MEDS: RAMELTEON 8 MG TAB (ROZEREM) PO PRN (02:17)
[2021-04-22] MEDS: LEVALBUTEROL 1.25 MG/0.5 ML CONCENTRATE NEB INH PRN (04:12)
[2021-04-22] MEDS: ALBUTEROL 90 MCG/ACT 8GM HFA INHALER INH PRN (04:24)
[2021-04-22 04:45] LABS: ABG BASE EXCESS -1.4 (-2.0-2.0); ABG HCO3 23.8 MEQ/L (22.0-26.0); ABG O2 SATURATION 95.9 % (95.0-99.0); ABG PARTIAL PRESSURE CO2 41.9 mmHg (35.0-45.0); ABG PARTIAL PRESSURE O2 84.4 mmHg (75.0-100.0); ABG STANDARD HCO3 23.2 MEQ/L (22.0-26.0); ABG TOTAL CO2 25.1 MEQ/L (23.0-31.0); ABG pH (ARTERIAL) 7.372 UNITS (7.350-7.450)
[2021-04-22] MEDS ORDERED: FUROSEMIDE 40MG/4ML VIAL (J1940) IV ONE (05:05)
[2021-04-22] MEDS ORDERED: ISOVUE-370 76% 100ML VIAL As Ordered ONE ×2 (05:10→16:36)
[2021-04-22] MEDS: cefTRIAXone SOD 1 GM in D5W MINI-BAG PLUS 50 ML IV SCH (05:50)
[2021-04-22 06:17] LABS: HEMATOCRIT 37.8 % (42.0-52.0); HEMOGLOBIN 11.6 g/dl (13.5-17.5); MEAN CORPUSCULAR HEMOGLOBIN 23.4 pg (27.0-33.0); MEAN CORPUSCULAR HGB CONC 30.7 g/dl (32.0-36.5); MEAN CORPUSCULAR VOLUME 76.4 fl (80.0-96.0); PLATELET COUNT, AUTOMATED 363 10^3/uL (150-450); RED BLOOD COUNT 4.95 10^6/uL (4.30-6.10); WHITE BLOOD COUNT 7.6 10^3/uL (4.0-10.0)
[2021-04-22 06:43] LABS: BLOOD UREA NITROGEN 32 MG/DL (7-18); CARBON DIOXIDE LEVEL 26 MEQ/L (21-32); CHLORIDE LEVEL 107 MEQ/L (98-107); CREATININE FOR GFR 0.99 MG/DL (0.70-1.30); GLOMERULAR FILTRATION RATE > 60.0 (>35); GLUCOSE, FASTING 147 MG/DL (70-100); MAGNESIUM LEVEL 2.1 MG/DL (1.8-2.4); POTASSIUM SERUM 3.8 MEQ/L (3.5-5.1); SODIUM LEVEL 140 MEQ/L (136-145)
[2021-04-22 06:50] LABS: LYMPHOCYTES 4 % (16-44); MONOCYTES 8 % (0-5); NEUTROPHILS 88 % (28-66)
[2021-04-22 06:51] LABS: PLATELET ESTIMATE NORMAL (NORMAL)
[2021-04-22] MEDS: ALBUTEROL SULFATE 2.5 MG/0.5 ML INH NEB SOLN INH SCH ×4 (08:00→20:00)
[2021-04-22] MEDS: TIOTROPIUM INHALER/CAPSULE (SPIRIVA) INH SCH (08:00)
[2021-04-22] MEDS: ADVAIR HFA 230/21MCG INHALER INH SCH ×2 (08:00→20:26)
[2021-04-22] MEDS: DOXYCYCLINE HYCLATE 100 MG in D5W MINI-BAG PLUS 100 ML IV SCH (08:27)
[2021-04-22] MEDS: dexameTHASONE 4 MG/ML 1ML VIAL (J1100 PER 1MG) IV SCH ×2 (08:28→20:29)
[2021-04-22] MEDS: PANTOPRAZOLE 40MG TAB (PROTONIX) PO SCH ×2 (08:30→20:29)
[2021-04-22] MEDS: BARICITINIB 2MG TABLET (OLUMIANT) FOR EUA PO SCH (08:30)
[2021-04-22] MEDS: ASPIRIN 81MG ENTERIC TABLET PO SCH (08:30)
[2021-04-22] MEDS: CLOPIDOGREL 75 MG TAB PO SCH (08:30)
[2021-04-22] MEDS: FINASTERIDE 5 MG TAB PO SCH (08:31)
[2021-04-22] MEDS: ATORVASTATIN 20 MG TAB PO SCH (08:31)
[2021-04-22] MEDS ORDERED: PROPOFOL 1,000 MG/100 ML VIAL As Ordered ONE (10:40)
[2021-04-22 12:44] LABS: ALBUMIN 2.4 GM/DL (3.2-5.2); BILIRUBIN,DIRECT 0.1 MG/DL (0.0-0.2); BILIRUBIN,TOTAL 0.3 MG/DL (0.2-1.0); TOTAL PROTEIN 6.3 GM/DL (6.4-8.2)
[2021-04-22] MEDS: SODIUM CHLORIDE 0.9% INJ 10 ML SYR IV SCH (14:49)
[2021-04-22] MEDS: REMDESIVIR 100 MG in NS 250 ML IV SCH (14:50)
[2021-04-22 16:10] LABS: BODY FLUID CULTURE Not indicated. (.); LEGIONELLA ANTIGEN URINE Negative (Negative); ORGANISM ID Not indicated. (.); SPECIMEN SOURCE Urine (.); URINE STREP PNEUMONIAE ANTIGEN Negative (Negative)
[2021-04-22] MEDS: DOXYCYCLINE HYCLATE 100MG TABLET PO SCH (20:29)
[2021-04-22] MEDS ORDERED: METOPROLOL TART 25 MG TABLET PO ONE (22:05)
[2021-04-22] MEDS: hydrOXYzine 10 MG TAB PO PRN (22:11)
[2021-04-23] MEDS ORDERED: RAMELTEON 8 MG TAB (ROZEREM) As Ordered ONE (01:39)
[2021-04-23] MEDS: RAMELTEON 8 MG TAB (ROZEREM) PO PRN ×2 (03:01→21:13)
[2021-04-23 04:00] VITALS: BP 168/82
[2021-04-23] MEDS: cefTRIAXone SOD 1 GM in D5W MINI-BAG PLUS 50 ML IV SCH (05:12)
[2021-04-23 06:19] LABS: HEMATOCRIT 36.6 % (42.0-52.0); HEMOGLOBIN 11.3 g/dl (13.5-17.5); MEAN CORPUSCULAR HEMOGLOBIN 23.6 pg (27.0-33.0); MEAN CORPUSCULAR HGB CONC 30.9 g/dl (32.0-36.5); MEAN CORPUSCULAR VOLUME 76.6 fl (80.0-96.0); PLATELET COUNT, AUTOMATED 384 10^3/uL (150-450); RED BLOOD COUNT 4.78 10^6/uL (4.30-6.10)
[2021-04-23 06:30] LABS: INR 1.17; PROTHROMBIN TIME 15.3 SECONDS (12.7-14.5)
[2021-04-23 06:31] LABS: PARTIAL THROMBOPLASTIN TIME 43.1 SECONDS (25.9-37.0)
[2021-04-23 06:51] LABS: ALBUMIN 2.2 GM/DL (3.2-5.2); ALT/SGPT 204 U/L (12-78); BILIRUBIN,DIRECT 0.1 MG/DL (0.0-0.2); BILIRUBIN,TOTAL 0.3 MG/DL (0.2-1.0); BLOOD UREA NITROGEN 33 MG/DL (7-18); CALCIUM LEVEL 8.1 MG/DL (8.8-10.2); CARBON DIOXIDE LEVEL 28 MEQ/L (21-32); CHLORIDE LEVEL 105 MEQ/L (98-107); CREATININE FOR GFR 0.85 MG/DL (0.70-1.30); FERRITIN 1242 NG/ML (26-388); GLOMERULAR FILTRATION RATE > 60.0 (>35); GLUCOSE, FASTING 147 MG/DL (70-100); LDH LACTATE DEHYDROGENASE 311 U/L (87-241); MAGNESIUM LEVEL 2.1 MG/DL (1.8-2.4); NT-PRO BNP 9618 PG/ML (<450); POTASSIUM SERUM 3.8 MEQ/L (3.5-5.1); SODIUM LEVEL 140 MEQ/L (136-145); TOTAL PROTEIN 6.1 GM/DL (6.4-8.2)
[2021-04-23 07:25] LABS: ANISOCYTOSIS 1+; ATYPICAL LYMPH 4 % (0-5); LYMPHOCYTES 3 % (16-44); MONOCYTES 3 % (0-5); NEUTROPHILS 90 % (28-66); PLATELET ESTIMATE NORMAL (NORMAL); POIKILOCYTOSIS 1+
[2021-04-23] MEDS: ADVAIR HFA 230/21MCG INHALER INH SCH ×3 (08:00→21:19)
[2021-04-23] MEDS: TIOTROPIUM INHALER/CAPSULE (SPIRIVA) INH SCH (08:13)
[2021-04-23] MEDS: ALBUTEROL 90 MCG/ACT 8GM HFA INHALER INH PRN (08:13)
[2021-04-23] MEDS: ALBUTEROL SULFATE 2.5 MG/0.5 ML INH NEB SOLN INH SCH ×4 (08:14→20:00)
[2021-04-23] MEDS: ENOXAPARIN 40MG/0.4ML SYRINGE (J1650 PER 10MG) SC SCH (09:21)
[2021-04-23] MEDS: DOXYCYCLINE HYCLATE 100MG TABLET PO SCH ×2 (09:22→21:13)
[2021-04-23] MEDS: CLOPIDOGREL 75 MG TAB PO SCH (09:22)
[2021-04-23] MEDS: ATORVASTATIN 20 MG TAB PO SCH (09:22)
[2021-04-23] MEDS: FUROSEMIDE 40MG/4ML VIAL (J1940) IV SCH (09:22)
[2021-04-23] MEDS: PANTOPRAZOLE 40MG TAB (PROTONIX) PO SCH ×2 (09:22→21:13)
[2021-04-23] MEDS: METOPROLOL TART 12.5 MG PER 1/2 TAB PO SCH ×2 (09:24→21:13)
[2021-04-23] MEDS: ASPIRIN 81MG ENTERIC TABLET PO SCH (09:25)
[2021-04-23] MEDS: BARICITINIB 2MG TABLET (OLUMIANT) FOR EUA PO SCH (09:25)
[2021-04-23] MEDS: FINASTERIDE 5 MG TAB PO SCH (09:25)
[2021-04-23] MEDS: dexameTHASONE 4 MG/ML 1ML VIAL (J1100 PER 1MG) IV SCH ×2 (09:26→21:13)
[2021-04-23 14:00] VITALS: BP 147/68
[2021-04-23] MEDS: SODIUM CHLORIDE 0.9% INJ 10 ML SYR IV SCH (18:20)
[2021-04-23] MEDS: REMDESIVIR 100 MG in NS 250 ML IV SCH (18:20)
[2021-04-23 19:46] VITALS: BP 157/77
[2021-04-24 04:00] VITALS: BP_SYST 160; BP_SYST 170; BP_DIAS 110; BP_DIAS 94
[2021-04-24 04:08] VITALS: BP 160/94
[2021-04-24] MEDS: cefTRIAXone SOD 1 GM in D5W MINI-BAG PLUS 50 ML IV SCH (05:15)
[2021-04-24 06:52] LABS: BASO % 0.1 % (0.0-1.0); HEMOGLOBIN 11.4 g/dl (13.5-17.5); LYMPH # 0.6 10^3/uL (1.5-5.0); LYMPH % 4.1 % (24.0-44.0); MEAN CORPUSCULAR HEMOGLOBIN 23.5 pg (27.0-33.0); MEAN CORPUSCULAR HGB CONC 30.8 g/dl (32.0-36.5); MEAN CORPUSCULAR VOLUME 76.3 fl (80.0-96.0); MONO # 0.7 10^3/uL (0.0-0.8); MONO % 4.9 % (2.0-8.0); NEUTROPHILS # 13.5 10^3/uL (1.5-8.5); NEUTROPHILS % 89.8 % (36.0-66.0); PLATELET COUNT, AUTOMATED 390 10^3/uL (150-450); RED BLOOD COUNT 4.85 10^6/uL (4.30-6.10)
[2021-04-24 07:09] LABS: BLOOD UREA NITROGEN 28 MG/DL (7-18); CALCIUM LEVEL 8.3 MG/DL (8.8-10.2); CARBON DIOXIDE LEVEL 30 MEQ/L (21-32); CHLORIDE LEVEL 103 MEQ/L (98-107); CREATININE FOR GFR 0.64 MG/DL (0.70-1.30); GLOMERULAR FILTRATION RATE > 60.0 (>35); GLUCOSE, FASTING 149 MG/DL (70-100); MAGNESIUM LEVEL 2.1 MG/DL (1.8-2.4); POTASSIUM SERUM 3.8 MEQ/L (3.5-5.1); SODIUM LEVEL 138 MEQ/L (136-145)
[2021-04-24] MEDS: TIOTROPIUM INHALER/CAPSULE (SPIRIVA) INH SCH (07:54)
[2021-04-24] MEDS: ALBUTEROL SULFATE 2.5 MG/0.5 ML INH NEB SOLN INH SCH ×4 (07:54→20:00)
[2021-04-24] MEDS: ADVAIR HFA 230/21MCG INHALER INH SCH ×2 (07:54→20:46)
[2021-04-24] MEDS: dexameTHASONE 4 MG/ML 1ML VIAL (J1100 PER 1MG) IV SCH ×2 (09:52→20:11)
[2021-04-24] MEDS: BARICITINIB 2MG TABLET (OLUMIANT) FOR EUA PO SCH (09:52)
[2021-04-24] MEDS: FUROSEMIDE 40MG/4ML VIAL (J1940) IV SCH (09:52)
[2021-04-24] MEDS: ENOXAPARIN 40MG/0.4ML SYRINGE (J1650 PER 10MG) SC SCH (09:52)
[2021-04-24] MEDS: CLOPIDOGREL 75 MG TAB PO SCH (09:53)
[2021-04-24] MEDS: FINASTERIDE 5 MG TAB PO SCH (09:53)
[2021-04-24] MEDS: ASPIRIN 81MG ENTERIC TABLET PO SCH (09:53)
[2021-04-24] MEDS: ATORVASTATIN 20 MG TAB PO SCH (09:53)
[2021-04-24] MEDS: METOPROLOL TART 12.5 MG PER 1/2 TAB PO SCH ×2 (09:53→20:11)
[2021-04-24] MEDS: DOXYCYCLINE HYCLATE 100MG TABLET PO SCH ×2 (09:53→20:11)
[2021-04-24] MEDS: PANTOPRAZOLE 40MG TAB (PROTONIX) PO SCH ×2 (09:53→20:11)
[2021-04-24 14:00] VITALS: BP 148/72
[2021-04-24 20:00] VITALS: BP 165/81
[2021-04-24] MEDS: RAMELTEON 8 MG TAB (ROZEREM) PO PRN (20:11)
[2021-04-25 04:00] VITALS: BP 180/90
[2021-04-25] MEDS: cefTRIAXone SOD 1 GM in D5W MINI-BAG PLUS 50 ML IV SCH (05:16)
[2021-04-25] MEDS: TIOTROPIUM INHALER/CAPSULE (SPIRIVA) INH SCH (07:50)
[2021-04-25] MEDS: ALBUTEROL SULFATE 2.5 MG/0.5 ML INH NEB SOLN INH SCH ×4 (07:50→20:00)
[2021-04-25] MEDS: ADVAIR HFA 230/21MCG INHALER INH SCH ×2 (07:50→20:33)
[2021-04-25 07:53] VITALS: O2SAT 94
[2021-04-25 07:54] LABS: INR 1.19; PROTHROMBIN TIME 15.6 SECONDS (12.7-14.5)
[2021-04-25 07:55] LABS: PARTIAL THROMBOPLASTIN TIME 33.2 SECONDS (25.9-37.0)
[2021-04-25 08:13] LABS: ALBUMIN 2.6 GM/DL (3.2-5.2); ALT/SGPT 132 U/L (12-78); BILIRUBIN,DIRECT 0.1 MG/DL (0.0-0.2); BILIRUBIN,TOTAL 0.3 MG/DL (0.2-1.0); FERRITIN 662 NG/ML (26-388); LDH LACTATE DEHYDROGENASE 336 U/L (87-241); NT-PRO BNP 7799 PG/ML (<450); TOTAL PROTEIN 6.2 GM/DL (6.4-8.2)
[2021-04-25 08:51] LABS: BLOOD UREA NITROGEN 24 MG/DL (7-18); CALCIUM LEVEL 8.7 MG/DL (8.8-10.2); CARBON DIOXIDE LEVEL 31 MEQ/L (21-32); CHLORIDE LEVEL 103 MEQ/L (98-107); GLOMERULAR FILTRATION RATE > 60.0 (>35); GLUCOSE, FASTING 108 MG/DL (70-100); POTASSIUM SERUM 4.3 MEQ/L (3.5-5.1); SODIUM LEVEL 141 MEQ/L (136-145)
[2021-04-25] MEDS: FUROSEMIDE 40MG/4ML VIAL (J1940) IV SCH (09:47)
[2021-04-25] MEDS: CLOPIDOGREL 75 MG TAB PO SCH (09:47)
[2021-04-25] MEDS: ENOXAPARIN 40MG/0.4ML SYRINGE (J1650 PER 10MG) SC SCH (09:48)
[2021-04-25] MEDS: ATORVASTATIN 20 MG TAB PO SCH (09:48)
[2021-04-25] MEDS: BARICITINIB 2MG TABLET (OLUMIANT) FOR EUA PO SCH (09:48)
[2021-04-25] MEDS: PANTOPRAZOLE 40MG TAB (PROTONIX) PO SCH ×2 (09:48→20:27)
[2021-04-25] MEDS: DOXYCYCLINE HYCLATE 100MG TABLET PO SCH ×2 (09:50→20:27)
[2021-04-25] MEDS: FINASTERIDE 5 MG TAB PO SCH (09:50)
[2021-04-25] MEDS: predniSONE 10 MG TAB PO SCH (09:50)
[2021-04-25] MEDS: ASPIRIN 81MG ENTERIC TABLET PO SCH (09:50)
[2021-04-25] MEDS: METOPROLOL TART 12.5 MG PER 1/2 TAB PO SCH ×2 (09:50→20:27)
[2021-04-25] MEDS: **hydrALAZINE HCL** 25 MG TAB PO SCH ×2 (12:00→19:04)
[2021-04-25 14:00] VITALS: BP 150/63
[2021-04-25] MEDS: MOM 30ML SUSPENSION UDC PO SCH (19:03)
[2021-04-25 20:00] VITALS: BP 141/73
[2021-04-25] MEDS: SENNA 8.6 MG TAB (SENOKOT) PO SCH (20:27)
[2021-04-26 04:00] VITALS: BP 170/90
[2021-04-26] MEDS: **hydrALAZINE HCL** 25 MG TAB PO SCH ×5 (04:42→23:47)
[2021-04-26] MEDS: cefTRIAXone SOD 1 GM in D5W MINI-BAG PLUS 50 ML IV SCH (04:43)
[2021-04-26] MEDS: ADVAIR HFA 230/21MCG INHALER INH SCH ×2 (07:31→19:53)
[2021-04-26] MEDS: TIOTROPIUM INHALER/CAPSULE (SPIRIVA) INH SCH (07:31)
[2021-04-26] MEDS: ALBUTEROL SULFATE 2.5 MG/0.5 ML INH NEB SOLN INH SCH ×4 (07:31→20:00)
[2021-04-26 08:38] LABS: BASO # 0.1 10^3/uL (0.0-0.2); BASO % 0.3 % (0.0-1.0); EOS # 0.4 10^3/uL (0.0-0.5); EOS % 2.4 % (0.0-3.0); HEMATOCRIT 40.3 % (42.0-52.0); HEMOGLOBIN 12.4 g/dl (13.5-17.5); LYMPH # 1.3 10^3/uL (1.5-5.0); LYMPH % 7.5 % (24.0-44.0); MEAN CORPUSCULAR HEMOGLOBIN 23.8 pg (27.0-33.0); MEAN CORPUSCULAR HGB CONC 30.8 g/dl (32.0-36.5); MEAN CORPUSCULAR VOLUME 77.4 fl (80.0-96.0); MONO # 1.1 10^3/uL (0.0-0.8); MONO % 6.6 % (2.0-8.0); NEUTROPHILS % 81.4 % (36.0-66.0); PLATELET COUNT, AUTOMATED 406 10^3/uL (150-450); RED BLOOD COUNT 5.21 10^6/uL (4.30-6.10); WHITE BLOOD COUNT 17.2 10^3/uL (4.0-10.0)
[2021-04-26 08:59] LABS: ALBUMIN 2.6 GM/DL (3.2-5.2); ALT/SGPT 106 U/L (12-78); BILIRUBIN,TOTAL 0.4 MG/DL (0.2-1.0); BLOOD UREA NITROGEN 29 MG/DL (7-18); CALCIUM LEVEL 8.7 MG/DL (8.8-10.2); CARBON DIOXIDE LEVEL 33 MEQ/L (21-32); CHLORIDE LEVEL 102 MEQ/L (98-107); CREATININE FOR GFR 0.73 MG/DL (0.70-1.30); GLOMERULAR FILTRATION RATE > 60.0 (>35); GLUCOSE, FASTING 68 MG/DL (70-100); POTASSIUM SERUM 4.1 MEQ/L (3.5-5.1); SODIUM LEVEL 141 MEQ/L (136-145); TOTAL PROTEIN 5.8 GM/DL (6.4-8.2)
[2021-04-26] MEDS: ENOXAPARIN 40MG/0.4ML SYRINGE (J1650 PER 10MG) SC SCH (09:00)
[2021-04-26] MEDS: SENNA 8.6 MG TAB (SENOKOT) PO SCH ×2 (09:00→20:18)
[2021-04-26] MEDS: BARICITINIB 2MG TABLET (OLUMIANT) FOR EUA PO SCH (09:00)
[2021-04-26] MEDS: MOM 30ML SUSPENSION UDC PO SCH (09:00)
[2021-04-26] MEDS: METOPROLOL TART 12.5 MG PER 1/2 TAB PO SCH ×2 (09:01→20:18)
[2021-04-26] MEDS: FINASTERIDE 5 MG TAB PO SCH (09:01)
[2021-04-26] MEDS: CLOPIDOGREL 75 MG TAB PO SCH (09:01)
[2021-04-26] MEDS: PANTOPRAZOLE 40MG TAB (PROTONIX) PO SCH ×2 (09:01→20:18)
[2021-04-26] MEDS: ATORVASTATIN 20 MG TAB PO SCH (09:02)
[2021-04-26] MEDS: TORSEMIDE 20 MG TAB PO SCH ×2 (09:02→17:03)
[2021-04-26] MEDS: predniSONE 10 MG TAB PO SCH (09:02)
[2021-04-26] MEDS: DOXYCYCLINE HYCLATE 100MG TABLET PO SCH ×2 (09:02→20:17)
[2021-04-26] MEDS: ASPIRIN 81MG ENTERIC TABLET PO SCH (09:16)
[2021-04-26 14:00] VITALS: BP 130/51
[2021-04-26 20:00] VITALS: BP 127/74
[2021-04-27 04:00] VITALS: BP 160/88
[2021-04-27] MEDS: **hydrALAZINE HCL** 25 MG TAB PO SCH ×3 (06:35→17:07)
[2021-04-27 06:38] LABS: BASO # 0.1 10^3/uL (0.0-0.2); BASO % 0.4 % (0.0-1.0); EOS # 0.3 10^3/uL (0.0-0.5); EOS % 1.9 % (0.0-3.0); HEMATOCRIT 42.8 % (42.0-52.0); LYMPH # 1.2 10^3/uL (1.5-5.0); LYMPH % 7.7 % (24.0-44.0); MEAN CORPUSCULAR HEMOGLOBIN 23.7 pg (27.0-33.0); MEAN CORPUSCULAR HGB CONC 30.4 g/dl (32.0-36.5); MONO # 1.1 10^3/uL (0.0-0.8); NEUTROPHILS # 12.7 10^3/uL (1.5-8.5); PLATELET COUNT, AUTOMATED 446 10^3/uL (150-450); RED BLOOD COUNT 5.49 10^6/uL (4.30-6.10); WHITE BLOOD COUNT 15.7 10^3/uL (4.0-10.0)
[2021-04-27 06:58] LABS: ALBUMIN 2.7 GM/DL (3.2-5.2); ALT/SGPT 97 U/L (12-78); BILIRUBIN,TOTAL 0.5 MG/DL (0.2-1.0); BLOOD UREA NITROGEN 35 MG/DL (7-18); CALCIUM LEVEL 8.5 MG/DL (8.8-10.2); CARBON DIOXIDE LEVEL 35 MEQ/L (21-32); CHLORIDE LEVEL 98 MEQ/L (98-107); CREATININE FOR GFR 0.87 MG/DL (0.70-1.30); GLOMERULAR FILTRATION RATE > 60.0 (>35); GLUCOSE, FASTING 88 MG/DL (70-100); POTASSIUM SERUM 3.6 MEQ/L (3.5-5.1); SODIUM LEVEL 139 MEQ/L (136-145); TOTAL PROTEIN 6.4 GM/DL (6.4-8.2)
[2021-04-27] MEDS: ADVAIR HFA 230/21MCG INHALER INH SCH ×2 (07:33→19:27)
[2021-04-27] MEDS: ALBUTEROL SULFATE 2.5 MG/0.5 ML INH NEB SOLN INH SCH ×4 (07:33→19:28)
[2021-04-27] MEDS: TIOTROPIUM INHALER/CAPSULE (SPIRIVA) INH SCH (07:33)
[2021-04-27] MEDS: PANTOPRAZOLE 40MG TAB (PROTONIX) PO SCH ×2 (08:14→19:43)
[2021-04-27] MEDS: ATORVASTATIN 20 MG TAB PO SCH (08:14)
[2021-04-27] MEDS: DOXYCYCLINE HYCLATE 100MG TABLET PO SCH (08:14)
[2021-04-27] MEDS: CLOPIDOGREL 75 MG TAB PO SCH (08:14)
[2021-04-27] MEDS: predniSONE 10 MG TAB PO SCH (08:15)
[2021-04-27] MEDS: FINASTERIDE 5 MG TAB PO SCH (08:15)
[2021-04-27] MEDS: TORSEMIDE 20 MG TAB PO SCH ×2 (08:15→17:06)
[2021-04-27] MEDS: BARICITINIB 2MG TABLET (OLUMIANT) FOR EUA PO SCH (08:16)
[2021-04-27] MEDS: SENNA 8.6 MG TAB (SENOKOT) PO SCH ×2 (08:16→19:44)
[2021-04-27] MEDS: METOPROLOL TART 12.5 MG PER 1/2 TAB PO SCH ×2 (08:16→21:00)
[2021-04-27] MEDS: MOM 30ML SUSPENSION UDC PO SCH (08:16)
[2021-04-27] MEDS: ASPIRIN 81MG ENTERIC TABLET PO SCH (08:17)
[2021-04-27] MEDS: ENOXAPARIN 40MG/0.4ML SYRINGE (J1650 PER 10MG) SC SCH (08:17)
[2021-04-27 11:50] VITALS: BP 103/59
[2021-04-27 14:43] VITALS: BP 104/55
[2021-04-27 19:41] VITALS: BP 80/51
[2021-04-27 20:28] VITALS: BP 92/50
[2021-04-28] VITALS (8 sets, daily range): BP systolic 93–139; BP diastolic 50–99
[2021-04-28] MEDS: **hydrALAZINE HCL** 25 MG TAB PO SCH ×4 (06:00→17:17)
[2021-04-28 06:44] LABS: BASO % 0.2 % (0.0-1.0); EOS # 0.3 10^3/uL (0.0-0.5); EOS % 1.7 % (0.0-3.0); HEMATOCRIT 40.9 % (42.0-52.0); HEMOGLOBIN 12.8 g/dl (13.5-17.5); LYMPH # 1.3 10^3/uL (1.5-5.0); LYMPH % 7.8 % (24.0-44.0); MEAN CORPUSCULAR HEMOGLOBIN 23.9 pg (27.0-33.0); MEAN CORPUSCULAR HGB CONC 31.3 g/dl (32.0-36.5); MEAN CORPUSCULAR VOLUME 76.4 fl (80.0-96.0); MONO # 1.2 10^3/uL (0.0-0.8); MONO % 7.1 % (2.0-8.0); NEUTROPHILS # 13.8 10^3/uL (1.5-8.5); NEUTROPHILS % 81.5 % (36.0-66.0); PLATELET COUNT, AUTOMATED 411 10^3/uL (150-450); RED BLOOD COUNT 5.35 10^6/uL (4.30-6.10); WHITE BLOOD COUNT 16.9 10^3/uL (4.0-10.0)
[2021-04-28 07:14] LABS: ALBUMIN 2.7 GM/DL (3.2-5.2); BILIRUBIN,TOTAL 0.7 MG/DL (0.2-1.0); CALCIUM LEVEL 8.5 MG/DL (8.8-10.2); CREATININE FOR GFR 1.24 MG/DL (0.70-1.30); GLOMERULAR FILTRATION RATE 59.6 (>35); POTASSIUM SERUM 3.4 MEQ/L (3.5-5.1); TOTAL PROTEIN 6.2 GM/DL (6.4-8.2)
[2021-04-28] MEDS: ALBUTEROL SULFATE 2.5 MG/0.5 ML INH NEB SOLN INH SCH ×4 (08:00→20:00)
[2021-04-28] MEDS: TIOTROPIUM INHALER/CAPSULE (SPIRIVA) INH SCH (08:04)
[2021-04-28] MEDS: ADVAIR HFA 230/21MCG INHALER INH SCH ×2 (08:04→20:00)
[2021-04-28] MEDS: ENOXAPARIN 40MG/0.4ML SYRINGE (J1650 PER 10MG) SC SCH (08:20)
[2021-04-28] MEDS: ASPIRIN 81MG ENTERIC TABLET PO SCH (08:20)
[2021-04-28] MEDS: predniSONE 10 MG TAB PO SCH (08:20)
[2021-04-28] MEDS: PANTOPRAZOLE 40MG TAB (PROTONIX) PO SCH ×2 (08:21→20:33)
[2021-04-28] MEDS: BARICITINIB 2MG TABLET (OLUMIANT) FOR EUA PO SCH (08:21)
[2021-04-28] MEDS: SENNA 8.6 MG TAB (SENOKOT) PO SCH ×2 (08:21→20:32)
[2021-04-28] MEDS: ATORVASTATIN 20 MG TAB PO SCH (08:21)
[2021-04-28] MEDS: CLOPIDOGREL 75 MG TAB PO SCH (08:21)
[2021-04-28] MEDS: MOM 30ML SUSPENSION UDC PO SCH (08:21)
[2021-04-28] MEDS: FINASTERIDE 5 MG TAB PO SCH (08:21)
[2021-04-28] MEDS: TORSEMIDE 20 MG TAB PO SCH ×2 (08:48→17:17)
[2021-04-28] MEDS: METOPROLOL TART 12.5 MG PER 1/2 TAB PO SCH ×2 (08:48→20:33)
[2021-04-29 04:00] VITALS: BP 131/82
[2021-04-29] MEDS: **hydrALAZINE HCL** 25 MG TAB PO SCH ×3 (06:00→12:00)
[2021-04-29 06:24] LABS: BASO % 0.2 % (0.0-1.0); EOS # 0.2 10^3/uL (0.0-0.5); EOS % 1.2 % (0.0-3.0); HEMATOCRIT 41.3 % (42.0-52.0); LYMPH # 1.2 10^3/uL (1.5-5.0); LYMPH % 6.7 % (24.0-44.0); MEAN CORPUSCULAR HEMOGLOBIN 24.3 pg (27.0-33.0); MEAN CORPUSCULAR HGB CONC 31.5 g/dl (32.0-36.5); MEAN CORPUSCULAR VOLUME 77.3 fl (80.0-96.0); MONO # 1.1 10^3/uL (0.0-0.8); MONO % 6.3 % (2.0-8.0); NEUTROPHILS # 15.4 10^3/uL (1.5-8.5); NEUTROPHILS % 84.3 % (36.0-66.0); PLATELET COUNT, AUTOMATED 421 10^3/uL (150-450); RED BLOOD COUNT 5.34 10^6/uL (4.30-6.10); WHITE BLOOD COUNT 18.2 10^3/uL (4.0-10.0)
[2021-04-29 06:45] LABS: ALBUMIN 2.8 GM/DL (3.2-5.2); BILIRUBIN,TOTAL 0.7 MG/DL (0.2-1.0); CALCIUM LEVEL 8.3 MG/DL (8.8-10.2); CREATININE FOR GFR 1.45 MG/DL (0.70-1.30); GLOMERULAR FILTRATION RATE 49.7 (>35); POTASSIUM SERUM 3.6 MEQ/L (3.5-5.1); TOTAL PROTEIN 6.3 GM/DL (6.4-8.2)
[2021-04-29] MEDS: ALBUTEROL SULFATE 2.5 MG/0.5 ML INH NEB SOLN INH SCH ×4 (08:00→19:40)
[2021-04-29] MEDS: ADVAIR HFA 230/21MCG INHALER INH SCH ×2 (08:12→19:40)
[2021-04-29 09:08] LABS: MAGNESIUM LEVEL 2.1 MG/DL (1.8-2.4)
[2021-04-29] MEDS: MOM 30ML SUSPENSION UDC PO SCH (09:34)
[2021-04-29] MEDS: ATORVASTATIN 20 MG TAB PO SCH (09:35)
[2021-04-29] MEDS: ASPIRIN 81MG ENTERIC TABLET PO SCH (09:35)
[2021-04-29] MEDS: PANTOPRAZOLE 40MG TAB (PROTONIX) PO SCH ×2 (09:35→20:16)
[2021-04-29] MEDS: FINASTERIDE 5 MG TAB PO SCH (09:35)
[2021-04-29] MEDS: predniSONE 10 MG TAB PO SCH (09:35)
[2021-04-29] MEDS: CLOPIDOGREL 75 MG TAB PO SCH (09:35)
[2021-04-29] MEDS: ENOXAPARIN 40MG/0.4ML SYRINGE (J1650 PER 10MG) SC SCH (09:35)
[2021-04-29] MEDS: SENNA 8.6 MG TAB (SENOKOT) PO SCH ×2 (09:35→20:16)
[2021-04-29] MEDS: METOPROLOL TART 12.5 MG PER 1/2 TAB PO SCH ×2 (09:36→20:17)
[2021-04-29] MEDS: BARICITINIB 2MG TABLET (OLUMIANT) FOR EUA PO SCH (09:36)
[2021-04-29] MEDS: TORSEMIDE 20 MG TAB PO SCH ×2 (09:36→15:16)
[2021-04-29] MEDS: TIOTROPIUM INHALER/CAPSULE (SPIRIVA) INH SCH (12:12)
[2021-04-29] MEDS ORDERED: ONDANSETRON 4MG/2ML VIAL IV ONE (12:45)
[2021-04-29] MEDS ORDERED: SODIUM CHLORIDE 0.9% 1000ML IV ONE (13:50)
[2021-04-29 14:00] VITALS: BP 93/47
[2021-04-29 14:29] VITALS: BP 101/55
[2021-04-29 15:10] VITALS: BP 102/57
[2021-04-29 17:59] VITALS: BP 129/60
[2021-04-29 20:00] VITALS: BP 114/56
[2021-04-30 04:00] VITALS: BP 176/84
[2021-04-30 07:16] LABS: BASO % 0.1 % (0.0-1.0); EOS # 0.1 10^3/uL (0.0-0.5); EOS % 0.6 % (0.0-3.0); HEMATOCRIT 40.2 % (42.0-52.0); HEMOGLOBIN 12.3 g/dl (13.5-17.5); LYMPH % 7.1 % (24.0-44.0); MEAN CORPUSCULAR HEMOGLOBIN 24.3 pg (27.0-33.0); MEAN CORPUSCULAR HGB CONC 30.6 g/dl (32.0-36.5); MEAN CORPUSCULAR VOLUME 79.4 fl (80.0-96.0); MONO % 6.6 % (2.0-8.0); NEUTROPHILS # 12.2 10^3/uL (1.5-8.5); NEUTROPHILS % 84.6 % (36.0-66.0); PLATELET COUNT, AUTOMATED 346 10^3/uL (150-450); RED BLOOD COUNT 5.06 10^6/uL (4.30-6.10); WHITE BLOOD COUNT 14.5 10^3/uL (4.0-10.0)
[2021-04-30 07:38] LABS: ALBUMIN 2.7 GM/DL (3.2-5.2); BILIRUBIN,TOTAL 0.6 MG/DL (0.2-1.0); CALCIUM LEVEL 8.1 MG/DL (8.8-10.2); CREATININE FOR GFR 1.46 MG/DL (0.70-1.30); GLOMERULAR FILTRATION RATE 49.3 (>35); POTASSIUM SERUM 3.7 MEQ/L (3.5-5.1)
[2021-04-30] MEDS: ALBUTEROL SULFATE 2.5 MG/0.5 ML INH NEB SOLN INH SCH ×4 (08:11→20:00)
[2021-04-30] MEDS: TIOTROPIUM INHALER/CAPSULE (SPIRIVA) INH SCH (08:11)
[2021-04-30] MEDS: ADVAIR HFA 230/21MCG INHALER INH SCH ×2 (08:11→21:05)
[2021-04-30] MEDS: METOPROLOL TART 12.5 MG PER 1/2 TAB PO SCH ×2 (09:00→20:28)
[2021-04-30 09:41] VITALS: BP 102/56
[2021-04-30] MEDS: MOM 30ML SUSPENSION UDC PO SCH (09:43)
[2021-04-30] MEDS: ATORVASTATIN 20 MG TAB PO SCH (09:44)
[2021-04-30] MEDS: FINASTERIDE 5 MG TAB PO SCH (09:44)
[2021-04-30] MEDS: BARICITINIB 2MG TABLET (OLUMIANT) FOR EUA PO SCH (09:44)
[2021-04-30] MEDS: SENNA 8.6 MG TAB (SENOKOT) PO SCH ×2 (09:44→20:28)
[2021-04-30] MEDS: ASPIRIN 81MG ENTERIC TABLET PO SCH (09:45)
[2021-04-30] MEDS: PANTOPRAZOLE 40MG TAB (PROTONIX) PO SCH ×2 (09:45→20:28)
[2021-04-30] MEDS: predniSONE 10 MG TAB PO SCH (09:45)
[2021-04-30] MEDS: CLOPIDOGREL 75 MG TAB PO SCH (09:45)
[2021-04-30] MEDS: ENOXAPARIN 40MG/0.4ML SYRINGE (J1650 PER 10MG) SC SCH (09:45)
[2021-04-30] MEDS ORDERED: NS 1,000 ML IV SCH (13:00)
[2021-04-30 14:00] VITALS: BP 124/58
[2021-04-30 22:00] VITALS: BP 132/60
[2021-05-01 04:00] VITALS: BP 136/94
[2021-05-01 07:58] LABS: BASO % 0.1 % (0.0-1.0); EOS # 0.1 10^3/uL (0.0-0.5); EOS % 0.4 % (0.0-3.0); HEMATOCRIT 40.8 % (42.0-52.0); HEMOGLOBIN 12.5 g/dl (13.5-17.5); LYMPH # 0.7 10^3/uL (1.5-5.0); LYMPH % 4.4 % (24.0-44.0); MEAN CORPUSCULAR HEMOGLOBIN 24.1 pg (27.0-33.0); MEAN CORPUSCULAR HGB CONC 30.6 g/dl (32.0-36.5); MEAN CORPUSCULAR VOLUME 78.8 fl (80.0-96.0); MONO % 6.3 % (2.0-8.0); NEUTROPHILS # 13.7 10^3/uL (1.5-8.5); NEUTROPHILS % 88.1 % (36.0-66.0); PLATELET COUNT, AUTOMATED 335 10^3/uL (150-450); RED BLOOD COUNT 5.18 10^6/uL (4.30-6.10); WHITE BLOOD COUNT 15.6 10^3/uL (4.0-10.0)
[2021-05-01 08:29] LABS: ALBUMIN 2.8 GM/DL (3.2-5.2); ALT/SGPT 54 U/L (12-78); BILIRUBIN,TOTAL 0.6 MG/DL (0.2-1.0); BLOOD UREA NITROGEN 59 MG/DL (7-18); CALCIUM LEVEL 8.9 MG/DL (8.8-10.2); CARBON DIOXIDE LEVEL 31 MEQ/L (21-32); CHLORIDE LEVEL 104 MEQ/L (98-107); CREATININE FOR GFR 1.04 MG/DL (0.70-1.30); GLOMERULAR FILTRATION RATE > 60.0 (>35); GLUCOSE, FASTING 86 MG/DL (70-100); MAGNESIUM LEVEL 2.3 MG/DL (1.8-2.4); POTASSIUM SERUM 4.7 MEQ/L (3.5-5.1); SODIUM LEVEL 142 MEQ/L (136-145)
[2021-05-01] MEDS: TIOTROPIUM INHALER/CAPSULE (SPIRIVA) INH SCH (08:36)
[2021-05-01] MEDS: ADVAIR HFA 230/21MCG INHALER INH SCH (08:36)
[2021-05-01] MEDS: ALBUTEROL SULFATE 2.5 MG/0.5 ML INH NEB SOLN INH SCH ×2 (08:36→12:35)
[2021-05-01] MEDS: BARICITINIB 2MG TABLET (OLUMIANT) FOR EUA PO SCH (10:25)
[2021-05-01] MEDS: ENOXAPARIN 40MG/0.4ML SYRINGE (J1650 PER 10MG) SC SCH (10:25)
[2021-05-01] MEDS: MOM 30ML SUSPENSION UDC PO SCH (10:25)
[2021-05-01] MEDS: FINASTERIDE 5 MG TAB PO SCH (10:25)
[2021-05-01] MEDS: SENNA 8.6 MG TAB (SENOKOT) PO SCH (10:26)
[2021-05-01] MEDS: ASPIRIN 81MG ENTERIC TABLET PO SCH (10:26)
[2021-05-01] MEDS: CLOPIDOGREL 75 MG TAB PO SCH (10:26)
[2021-05-01] MEDS: predniSONE 10 MG TAB PO SCH (10:26)
[2021-05-01] MEDS: ATORVASTATIN 20 MG TAB PO SCH (10:26)
[2021-05-01] MEDS: PANTOPRAZOLE 40MG TAB (PROTONIX) PO SCH (10:26)
[2021-05-01 10:29] VITALS: BP 168/69
[2021-05-01] MEDS: METOPROLOL TART 12.5 MG PER 1/2 TAB PO SCH (10:29)
[2021-05-01] MEDS ORDERED: PRED10TA2 PO (10:51)
[2021-05-01] MEDS ORDERED: CLOP75TA2 PO (10:51)
[2021-05-01 14:00] VITALS: BP 117/60
[2021-05-13] MEDS ORDERED: PRED10TA2 PO (05:28)
[2021-05-13] MEDS ORDERED: XALA0.007 OU (05:28)
[2021-05-13] MEDS ORDERED: FINA5TAB2 PO (05:28)
[2021-05-13] MEDS ORDERED: LEVO500T4 PO (05:28)
[2021-05-13] MEDS ORDERED: PATIENT COMMENT (05:28)
[2021-05-13] MEDS ORDERED: FLUO40CA PO (05:28)
== END 2021-05-01 16:10 | disposition home health service (06) | DRG 177 ==
LOC: M ED 04:00 → M ED INP 07:22 → M 4MAIN 12:45 → M ICU 04-21 10:22 → M 4MAIN 04-22 13:50
PROVIDERS: ADMIT Internal Medicine; ATTEND Internal Medicine Nephrology
PROC: 3E0333Z Introduction of Anti-inflammatory into Peripheral Vein, Percutaneous Approach (ICD-10-PCS; principal; 2021-04-19)
PROC: XW033E5 Introduction of Remdesivir Anti-infective into Peripheral Vein, Percutaneous Approach, New Technology Group 5 (ICD-10-PCS; 2021-04-19)
DX: U07.1 COVID-19 (principal); J12.82 Pneumonia due to coronavirus disease 2019; J15.9 Unspecified bacterial pneumonia; I26.99 Other pulmonary embolism without acute cor pulmonale; I21.4 Non-ST elevation (NSTEMI) myocardial infarction; J96.21 Acute and chronic respiratory failure with hypoxia; J81.0 Acute pulmonary edema; N17.9 Acute kidney failure, unspecified; J44.0 Chronic obstructive pulmonary disease with (acute) lower respiratory infection; E87.2 Acidosis; I27.20 Pulmonary hypertension, unspecified; G47.33 Obstructive sleep apnea (adult) (pediatric); I10 Essential (primary) hypertension; E78.5 Hyperlipidemia, unspecified; E66.9 Obesity, unspecified; K21.9 Gastro-esophageal reflux disease without esophagitis; Z66 Do not resuscitate; I95.9 Hypotension, unspecified; E86.0 Dehydration; N40.0 Benign prostatic hyperplasia without lower urinary tract symptoms; Z79.82 Long term (current) use of aspirin; Z79.52 Long term (current) use of systemic steroids; Z79.899 Other long term (current) drug therapy; Z88.2 Allergy status to sulfonamides; Z99.81 Dependence on supplemental oxygen; F41.9 Anxiety disorder, unspecified; F32.A Depression, unspecified